=== PATIENT | female | born 1985 | race Caucasian/White ===

== ENCOUNTER 2016-09-29 15:49 | Emergency (ER) | payer MEDICAID ==
[~2016-09-29] VITALS: Ht 177.8 cm; Wt 91.6 kg
[~2016-09-29 15:49] MED LIST: ACHD5005 PO; ALBU0.632 IH; ALBU8.5H4 IH; IBP600T1 PO; LEVE100015 PO; LEVE500T6 PO; METR500T21 PO; MULT-974 PO; ONDA8TAB13 PO; RT-FLOV110 INH; SULF-222 PO
[2016-09-29] MEDS ORDERED: NS IV 1000 ML 1,000 ML IV ONE (16:07)
[2016-09-29] MEDS ORDERED: TOPI100T11 PO (16:12)
--- NOTE | 2016-09-29 16:18 | ED Head Injury ---
General Chief Complaint: Head/Cervical Problems Stated Complaint: FELL HIT HEAD ON BATHTUB Nursing Triage Note: ARRIVED VIA AMB TO ROOM 07. STATES SHE THINKS SHE WAS ON THE FLOOR FROM 2300 LAST NOC UNTIL 1330 TODAY. STATES SHE HIT HER HEAD. DENIES NECK PAIN. STATES HER KEPPRA DOSE WAS RECENTLY DECREASED. Source: patient Exam Limitations: no limitations History of Present Illness Time seen by provider: 16:03 Initial Comments Here with report of apparently falling in the bathtub sometime last night and then waking up today. She reports hitting the top of her head. She has had recent adjustments in her seizure medicine to a lower dose. She is unsure she had a seizure. Does report feeling very groggy. She is apparently found in the bathtub and was incontinent of stool. Denies other injury or concerns. She does have history of cancer but is not currently on chemotherapy or radiation. Occurred: this morning Severity: moderate Location: occipital Method of Injury: unknown Loss of Consciousness: prolonged (minutes) Associated Systoms: No Chest Pain, No Fever/Chills, No Nausea/Vomiting, Seizure , No Shortness of Air, Weakness Allergies and Home Medications Allergies Coded Allergies: cefaclor (Verified Allergy, Unknown, 12/19/13) latex (Verified Allergy, Unknown, 12/19/13) peanut (Verified Allergy, Unknown, 12/19/13) venom-honey bee (Verified Allergy, Unknown, 12/19/13) Home Medications Levetiracetam 1,000 Mg Tablet, 2 EACH PO BID, #120 Ref 0 Prescribed by: MARLEN HARRY on 12/19/14 1549 Topiramate 100 Mg Tablet, 100 MG PO BID, (Reported) Constitutional: see HPI, No chills, No fever Eyes: No Symptoms Reported Ears, Nose, Mouth, Throat: no symptoms reported Respiratory: no symptoms reported Cardiovascular: see HPI, syncope Gastrointestinal: No abdominal pain, No nausea, No vomiting Genitourinary: No dysuria, No pain Musculoskeletal: no symptoms reported Skin: see HPI, other (Abrasion to the top of her head that is small.) Psychiatric/Neurological: See HPI, Other (question of a seizure) Endocrine: No Symptoms Reported All Other Systems Reviewed Negative Unless Noted: Yes Past Xtboqmw-Qzyldc-Dmobyo Hx Patient Social History Alcohol Use: Denies Use Recreational Drug Use: No Smoking Status: Never a Smoker Recent Foreign Travel: No Contact w/Someone Who Travel: No Recent Infectious Disease Expo: No Recent Hopitalizations: No Immunizations Up To Date Tetanus Booster (TDap): More than 5yrs Date of Pneumonia Vaccine: Jun 14, 2011 Surgeries HX Surgeries: Yes (resection of benign breast masses, CERVIX, Dx Lap for adhesions) Surgeries: Abdominal, Appendectomy, Bowel Surgery, Breast, Orthopedic Respiratory Hx Respiratory Disorders: Yes (vocal cord dysfunction) Respiratory Disorders: Asthma Cardiovascular Hx Cardiac Disorders: No Neurological Hx 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) Neurological Disorders: Seizure Disorder Reproductive System Hx Reproductive Disorders: Yes (chronic PID, chronic pelvic pain) Sexually Transmitted Disease: No Female Reproductive Disorders: Ovarian Cyst Genitourinary Hx Genitourinary Disorders: No Gastrointestinal Hx Gastrointestinal Disorders: No Musculoskeletal Hx Musculoskeletal Disorders: No Endocrine Hx Endocrine Disorders: No HEENT HX ENT Disorders: Yes (vocal cord disease) Cancer Hx Cancer: Yes Cancer: Breast, Cervical, Colon Psychosocial Hx Psychiatric Problems: No Blood Transfusions Hx Blood Disorders: No Reviewed Nursing Assessment Reviewed/Agree w Nursing PMH: Yes Family Medical History Significant Family History: No Pertinent Family Hx Family Medial History: Patient reports no known family medical history. Physical Exam Vital Signs Vital Sign - Last 12Hours 09/29/16 16:07 Temp 97.3 Pulse 62 Resp 16 B/P (MAP) 120/90 Capillary Refill : Less Than 3 Seconds General Appearance: WD/WN, no apparent distress HEENT: PERRL/EOMI, normal ENT inspection Neck: non-tender, full range of motion, supple Cardiovascular: regular rate, rhythm, no murmur Respiratory: lungs clear, normal breath sounds Gastrointestinal: non tender, soft Back: normal inspection, no CVA tenderness, no vertebral tenderness Extremities: non-tender, normal inspection Psychiatric: alert, oriented x 3 Crainal Nerves: normal hearing, normal speech, PERRL Coordination/Gait: normal gait Motor/Sensory: no motor deficit, no sensory deficit Skin: normal color, warm/dry Erick Coma Score Best Eye Response: (4) Open Spontaneously Best Verbal Response: (5) Oriented Best Motor Response: (6) Obeys Commands Progress/Results/Core Measures Results/Orders Lab Results Laboratory Tests Test 09/29/16 16:20 Range/Units White Blood Count 5.3 4.3-11.0 10^3/uL Red Blood Count 4.52 4.35-5.85 10^6/uL Hemoglobin 14.0 11.5-16.0 G/DL Hematocrit 40 35-52 % Mean Corpuscular Volume 89 80-99 FL Mean Corpuscular Hemoglobin 31 25-34 PG Mean Corpuscular Hemoglobin Concent 35 32-36 G/DL Red Cell Distribution Width 12.1 10.0-14.5 % Platelet Count 181 130-400 10^3/uL Mean Platelet Volume 9.3 7.4-10.4 FL Neutrophils (%) (Auto) 60 42-75 % Lymphocytes (%) (Auto) 28 12-44 % Monocytes (%) (Auto) 10 0-12 % Eosinophils (%) (Auto) 2 0-10 % Basophils (%) (Auto) 0 0-10 % Neutrophils # (Auto) 3.1 1.8-7.8 X 10^3 Lymphocytes # (Auto) 1.5 1.0-4.0 X 10^3 Monocytes # (Auto) 0.5 0.0-1.0 X 10^3 Eosinophils # (Auto) 0.1 0.0-0.3 10^3/uL Basophils # (Auto) 0.0 0.0-0.1 10^3/uL Sodium Level 139 135-145 MMOL/L Potassium Level 3.7 3.6-5.0 MMOL/L Chloride Level 107 98-107 MMOL/L Carbon Dioxide Level 26 21-32 MMOL/L Anion Gap 6 5-14 MMOL/L Blood Urea Nitrogen 12 7-18 MG/DL Creatinine 1.03 0.60-1.30 MG/DL Estimat Glomerular Filtration Rate > 60 BUN/Creatinine Ratio 12 Glucose Level 86 70-105 MG/DL Calcium Level 8.7 8.5-10.1 MG/DL Magnesium Level 2.2 1.8-2.4 MG/DL Total Bilirubin 0.6 0.1-1.0 MG/DL Aspartate Amino Transf (AST/SGOT) 19 5-34 U/L Alanine Aminotransferase (ALT/SGPT) 34 0-55 U/L Alkaline Phosphatase 48 40-136 U/L Total Creatine Kinase 186 H 29-168 U/L Total Protein 6.8 6.4-8.2 G/DL Albumin 4.2 3.2-4.5 G/DL My Orders Orders - MARLEN HARRY MD Cbc With Automated Diff (09/29/16 16:07) Comprehensive Metabolic Panel (09/29/16 16:07) Creatine Kinase (09/29/16 16:07) Magnesium (09/29/16 16:07) Saline Lock/Iv-Start (09/29/16 16:07) Ns Iv 1000 Ml (Sodium Chloride 0.9%) (09/29/16 16:07) Ct Head Wo (09/29/16 16:07) Medications Given in ED Current Medications Medications Dose Ordered Sig/Sourav Route Start Time Stop Time Status Last Admin Dose Admin Sodium Chloride 1,000 ml @ 0 mls/hr Q0M ONCE IV 09/29/16 16:07 09/29/16 16:10 DC 09/29/16 16:21 1,000 MLS/HR Vital Signs/I&O Vital Sign - Last 12Hours 09/29/16 16:07 Temp 97.3 Pulse 62 Resp 16 B/P (MAP) 120/90 Blood Pressure Mean: 100 Progress Note : Progress Note Seen and evaluated. IV, labs, normal saline [address] head ordered. I did have patient take one dose of her home Keppra as she missed her morning dose. Patient has had med adjustment and this may be seizure related. Due to prolonged report of time in the bathtub (dry), we will check total CK. 1730: No acute findings. Discharged home with return precautions. Patient verbalize understanding instructions and agreement with plan. She will call her neurologist related to medication adjustment in the morning. Diagnostic Imaging Diagonstic Imaging: CT Plain Films/CT/US/NM/MRI: head Comments NAME: [facility] REC#: [id number] PT STATUS: REG ER : 1985 PHYSICIAN: MARLEN HARRY MD ADMIT DATE: 09/29/16/ER Signed Date of Exam: 09/29/16 CT HEAD WO PROCEDURE: CT head without contrast. TECHNIQUE: Multiple contiguous axial images were obtained through the brain without the use of intravenous contrast. INDICATION: Seizures. Fall. Correlation with the 12/19/2013 exam performed. FINDINGS: There is no intracranial hemorrhage, edema or mass effect. The brain parenchyma appears unremarkable. No hydrocephalus. The visualized portions of the orbits and paranasal sinuses appear unremarkable. IMPRESSION: Unremarkable study. Dictated by: Dictated on workstation # [id number] Dict: 09/29/161636 Trans: 09/29/161638 Interpreted by: LON CARTY MD Electronically signed by: LON CARTY MD 09/29/161638 Departure Impression Impression: Primary Impression: Head injury Qualified Codes: S09.90XA - Unspecified injury of head, initial encounter Additional Impression: Seizure Disposition: 01 HOME, SELF-CARE Condition: Improved Departure-Patient Inst. Decision time for Depature: 17:34 Referrals: TRICIA SAEED MD (PCP/Family) Primary Care Physician Patient Instructions: Minor Head Injury (DC), Seizures, Adult (DC) Add. Discharge Instructions: All discharge instructions reviewed with patient and/or family. Voiced understanding. Continue medications as directed. Call your neurologist in the morning for further medication adjustments. Return for worse pain, fever, vomiting, weakness, breathing problems or other concerns as needed. Drink plenty of fluids. MARLEN HARRY MD Sep 29, 2016 16:18
[2016-09-29 16:28] LABS: BASOPHILS % (AUTO) 0 % (0-10); EOSINOPHILS # (AUTO) 0.1 10^3/uL (0.0-0.3); EOSINOPHILS % (AUTO) 2 % (0-10); LYMPHOCYTES # (AUTO) 1.5 X 10^3 (1.0-4.0); LYMPHOCYTES % (AUTO) 28 % (12-44); MEAN CORPUSCULAR HEMOGLOBIN 31 PG (25-34); MEAN CORPUSCULAR HGB CONC 35 G/DL (32-36); MEAN CORPUSCULAR VOLUME 89 FL (80-99); MEAN PLATELET VOLUME 9.3 FL (7.4-10.4); MONOCYTES # (AUTO) 0.5 X 10^3 (0.0-1.0); MONOCYTES % (AUTO) 10 % (0-12); NEUTROPHILS # (AUTO) 3.1 X 10^3 (1.8-7.8); NEUTROPHILS % (AUTO) 60 % (42-75); PLATELET COUNT 181 10^3/uL (130-400); RED BLOOD COUNT 4.52 10^6/uL (4.35-5.85); RED CELL DISTRIBUTION WIDTH 12.1 % (10.0-14.5); WHITE BLOOD COUNT 5.3 10^3/uL (4.3-11.0)
--- NOTE | 2016-09-29 16:41 | Diagnostic Imaging Report ---
PROCEDURE: CT head without contrast. TECHNIQUE: Multiple contiguous axial images were obtained through the brain without the use of intravenous contrast. INDICATION: Seizures. Fall. Correlation with the 12/19/2013 exam performed. FINDINGS: There is no intracranial hemorrhage, edema or mass effect. The brain parenchyma appears unremarkable. No hydrocephalus. The visualized portions of the orbits and paranasal sinuses appear unremarkable. IMPRESSION: Unremarkable study. Dictated by: Dictated on workstation # [id number]
[2016-09-29 17:09] LABS: ALANINE AMINOTRANSFERASE 34 U/L (0-55); ALBUMIN 4.2 G/DL (3.2-4.5); ANION GAP 6 MMOL/L (5-14); ASPARTATE AMINO TRANSFERASE 19 U/L (5-34); BILIRUBIN,TOTAL 0.6 MG/DL (0.1-1.0); BLOOD UREA NITROGEN 12 MG/DL (7-18); BUN/CREATININE RATIO 12; CALCIUM 8.7 MG/DL (8.5-10.1); CARBON DIOXIDE 26 MMOL/L (21-32); CHLORIDE 107 MMOL/L (98-107); CREATINE KINASE 186 U/L (29-168); CREATININE SERUM 1.03 MG/DL (0.60-1.30); GFR ESTIMATED > 60; GLUCOSE 86 MG/DL (70-105); MAGNESIUM 2.2 MG/DL (1.8-2.4); POTASSIUM 3.7 MMOL/L (3.6-5.0); SODIUM 139 MMOL/L (135-145); TOTAL PROTEIN 6.8 G/DL (6.4-8.2)
[2016-09-29] MEDS ORDERED: TETANUS,DIPTH,PERTUSS P/F (BOOSTRIX) 0.5 ML VIAL IM STA (17:48)
[2016-09-29 17:55] VITALS: BP 101/67
== END 2016-09-29 17:55 | disposition home or self-care (01) ==
LOC: EDUNIT# 15:49 → ER 15:51
DX: S09.90XA Unspecified injury of head, initial encounter (principal); G40.909 Epilepsy, unspecified, not intractable, without status epilepticus; Z79.899 Other long term (current) drug therapy; Z85.3 Personal history of malignant neoplasm of breast; Z85.038 Personal history of other malignant neoplasm of large intestine; Z85.41 Personal history of malignant neoplasm of cervix uteri; W18.2XXA Fall in (into) shower or empty bathtub, initial encounter; Y92.012 Bathroom of single-family (private) house as the place of occurrence of the external cause; Y99.8 Other external cause status
CPT/HCPCS: 36415; 70450; 80053; 82550; 83735; 85025; 90471; 90715; 96360

== ENCOUNTER 2016-09-30 21:31 | Emergency (ER) | payer MEDICAID ==
[~2016-09-30] VITALS: Ht 177.8 cm; Wt 91.7 kg
[~2016-09-30 21:31] MED LIST changes: +TOPI100T11 PO
--- NOTE | 2016-09-30 21:45 | ED Neurological Problem ---
General Chief Complaint: Unresponsive Stated Complaint: UNRESPONSIVE Source: EMS, RN notes reviewed, old records Exam Limitations: clinical condition (unresponsive) History of Present Illness Time seen by provider: 21:32 Initial Comments Patient, I believe, was @ [employer] when she developed a bad headache and started feeling weird. She called someone and that is the last thing she remembers until waking up here. Was here yesterday c/ a somewhat similar story. Has known seizure hx and recently had her Keppra dose reduced from 1500 mg BID to 500 mg BID by her Neurologist in [place] and that is when all these problems began. Couldn't tell me why her dose was reduced. Timing/Duration: increasing, other (just [facility]) Associated Symptoms: loss of consciousness Allergies and Home Medications Allergies Coded Allergies: cefaclor (Verified Allergy, Unknown, 12/19/13) latex (Verified Allergy, Unknown, 12/19/13) peanut (Verified Allergy, Unknown, 12/19/13) venom-honey bee (Verified Allergy, Unknown, 12/19/13) Home Medications Levetiracetam 1,000 Mg Tablet, 2 EACH PO BID, #120 Ref 0 Prescribed by: MARLEN HARRY on 12/19/14 1549 Topiramate 100 Mg Tablet, 100 MG PO BID, (Reported) Constitutional: see HPI (initially unable to obtain secondary to being unresponsive.) : No Psychiatric/Neurological: See HPI, Cognitive Dysfunction, Headache, [place] Seizures (?) All Other Systems Reviewed Negative Unless Noted: Yes (Negative excepted noted.) Past Nvsoxpk-Upeuvu-Vkynch Hx Patient Social History Recent Hopitalizations: No Immunizations Up To Date Tetanus Booster (TDap): More than 5yrs Date of Pneumonia Vaccine: Jun 14, 2011 Surgeries HX Surgeries: Yes (resection of benign breast masses, CERVIX, Dx Lap for adhesions) Surgeries: Abdominal, Appendectomy, Bowel Surgery, Breast, Orthopedic Respiratory Hx Respiratory Disorders: Yes (vocal cord dysfunction) Respiratory Disorders: Asthma Cardiovascular Hx Cardiac Disorders: No Neurological Hx 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) Neurological Disorders: Seizure Disorder Reproductive System Hx Reproductive Disorders: Yes (chronic PID, chronic pelvic pain) Sexually Transmitted Disease: No Female Reproductive Disorders: Ovarian Cyst Genitourinary Hx Genitourinary Disorders: No Gastrointestinal Hx Gastrointestinal Disorders: No Musculoskeletal Hx Musculoskeletal Disorders: No Endocrine Hx Endocrine Disorders: No HEENT HX ENT Disorders: Yes (vocal cord disease) Cancer Hx Cancer: Yes Cancer: Breast, Cervical, Colon Psychosocial Hx Psychiatric Problems: No Blood Transfusions Hx Blood Disorders: No Family Medical History Significant Family History: No Pertinent Family Hx Family Medial History: Patient reports no known family medical history. Physical Exam Vital Signs Vital Sign - Last 12Hours 09/30/16 21:40 Temp 98.8 Pulse 71 Resp 21 B/P (MAP) 126/79 Pulse Ox 99 O2 Delivery Room Air Capillary Refill : General Appearance: WD/WN, other (initially unresponsive and appeared to be possibly seizing when evaluating her eyes) HEENT: PERRL/EOMI (post seizure), normal ENT inspection (post event), TMs normal (post event), pharynx normal, other (initially had a twitching right upward lateral gaze bilaterally) Neck: supple Respiratory: no respiratory distress Cardiovascular: regular rate, rhythm Extremities: normal inspection Neurologic/Psychiatric: no motor/sensory deficits (post event), alert (post event), oriented x 3 (post event), other (initially unresponsive) Crainal Nerves: normal hearing (post event), normal speech (post event), PERRL (post event), abnormal eye position (see above) Coordination/Gait: normal finger to nose, normal gait Motor/Sensory: no motor deficit (post event), no sensory deficit (post event), no pronator drift (post event) Skin: warm/dry Progress/Results/Core Measures Results/Orders Lab Results Laboratory Tests Test 09/30/16 21:39 09/30/16 22:10 09/30/16 22:27 Range/Units Urine Color YELLOW Urine Clarity CLEAR Urine pH 7 5-9 Urine Specific [place] 1.015 L 1.016-1.022 Urine Protein NEGATIVE NEGATIVE Urine Glucose (UA) NEGATIVE NEGATIVE Urine Ketones NEGATIVE NEGATIVE Urine Nitrite NEGATIVE NEGATIVE Urine Bilirubin NEGATIVE NEGATIVE Urine Urobilinogen NORMAL NORMAL MG/DL Urine Leukocyte Esterase NEGATIVE NEGATIVE Urine RBC (Auto) NEGATIVE NEGATIVE Urine RBC NONE /HPF Urine WBC RARE /HPF Urine Crystals PRESENT H /LPF Urine Amorphous Sediment MOD ROSANNE PHOSPHATE H /LPF Urine Bacteria FEW H /HPF Urine Casts NONE /LPF Urine Mucus NEGATIVE /LPF Urine Culture Indicated NO Urine Test NEGATIVE NEGATIVE Urine Opiates Screen NEGATIVE NEGATIVE Urine Oxycodone Screen NEGATIVE NEGATIVE Urine Methadone Screen NEGATIVE NEGATIVE Urine Propoxyphene Screen NEGATIVE NEGATIVE Urine Barbiturates Screen NEGATIVE NEGATIVE Ur Tricyclic Antidepressants Screen NEGATIVE NEGATIVE Urine Phencyclidine Screen NEGATIVE NEGATIVE Urine Amphetamines Screen NEGATIVE NEGATIVE Urine Methamphetamines Screen NEGATIVE NEGATIVE Urine Benzodiazepines Screen NEGATIVE NEGATIVE Urine Cocaine Screen NEGATIVE NEGATIVE Urine Cannabinoids Screen NEGATIVE NEGATIVE White Blood Count 8.2 4.3-11.0 10^3/uL Red Blood Count 4.78 4.35-5.85 10^6/uL Hemoglobin 14.9 11.5-16.0 G/DL Hematocrit 43 35-52 % Mean Corpuscular Volume 91 80-99 FL Mean Corpuscular Hemoglobin 31 25-34 PG Mean Corpuscular Hemoglobin Concent 34 32-36 G/DL Red Cell Distribution Width 12.5 10.0-14.5 % Platelet Count 212 130-400 10^3/uL Mean Platelet Volume 11.1 H 7.4-10.4 FL Neutrophils (%) (Auto) 62 42-75 % Lymphocytes (%) (Auto) 27 12-44 % Monocytes (%) (Auto) 9 0-12 % Eosinophils (%) (Auto) 2 0-10 % Basophils (%) (Auto) 0 0-10 % Neutrophils # (Auto) 5.1 1.8-7.8 X 10^3 Lymphocytes # (Auto) 2.2 1.0-4.0 X 10^3 Monocytes # (Auto) 0.7 0.0-1.0 X 10^3 Eosinophils # (Auto) 0.2 0.0-0.3 10^3/uL Basophils # (Auto) 0.0 0.0-0.1 10^3/uL Sodium Level 143 135-145 MMOL/L Potassium Level 3.8 3.6-5.0 MMOL/L Chloride Level 111 H 98-107 MMOL/L Carbon Dioxide Level 20 L 21-32 MMOL/L Anion Gap 12 5-14 MMOL/L Blood Urea Nitrogen 13 7-18 MG/DL Creatinine 1.04 0.60-1.30 MG/DL Estimat Glomerular Filtration Rate > 60 BUN/Creatinine Ratio 13 Glucose Level 67 L 70-105 MG/DL Calcium Level 9.1 8.5-10.1 MG/DL Magnesium Level 2.2 1.8-2.4 MG/DL Total Bilirubin 0.4 0.1-1.0 MG/DL Aspartate Amino Transf (AST/SGOT) 17 5-34 U/L Alanine Aminotransferase (ALT/SGPT) 33 0-55 U/L Alkaline Phosphatase 53 40-136 U/L Total Creatine Kinase 153 29-168 U/L Troponin I < 0.30 <0.30 NG/ML Total Protein 7.3 6.4-8.2 G/DL Albumin 4.3 3.2-4.5 G/DL Salicylates Level < 5.0 L 5.0-20.0 MG/DL Acetaminophen Level < 10 L 10-30 UG/ML Serum Alcohol < 10 <10 MG/DL My Orders Orders - WISAM RAHMAN DO Saline Lock/Iv-Start (09/30/16 21:40) Acetaminophen (09/30/16 21:40) Alcohol (09/30/16 21:40) Cbc With Automated Diff (09/30/16 21:40) Comprehensive Metabolic Panel (09/30/16 21:40) Drug Screen Stat (Urine) (09/30/16 21:40) Hcg,Qualitative Urine (09/30/16 21:40) Magnesium (09/30/16 21:40) Salicylate (09/30/16 21:40) Ua Culture If Indicated (09/30/16 21:40) Creatine Kinase (09/30/16 21:46) Prolactin (09/30/16 21:46) Ct Head Wo (09/30/16 21:46) Ekg Tracing (09/30/16 21:47) Troponin I (09/30/16 21:47) Lorazepam Injection (Ativan Injection) (09/30/16 22:00) Levetiracetam Injection (Keppra Injectio (09/30/16 22:55) Ns (Ivpb) (Sodium Chloride 0.9% Ivpb Bag (09/30/16 22:55) Levetiracetam Injection (Keppra Injectio (09/30/16 22:56) Burr Cath (10/01/16 02:46) Vital Signs/I&O Vital Sign - Last 12Hours 09/30/16 09/30/16 21:40 23:30 Temp 98.8 98.8 Pulse 71 53 Resp 21 22 B/P (MAP) 126/79 Pulse Ox 99 99 O2 Delivery Room Air Intake and Output 10/01/16 00:00 Intake Total 110 ml Balance 110 ml Progress Note : Progress Note Reportedly did call her Neurologist today, 09/30, and left a message regarding yesterday's events, but hasn't heard back from him yet. ECG Initial ECG Rhythm: Normal Sinus Initial ECG Intervals: Normal Initial ECG Impression: Normal Initial ECG Comparisson: No Previous ECG Available Diagnostic Imaging Diagonstic Imaging: CT Plain Films/CT/US/NM/MRI: head (unremarkable per radiologist) Departure Impression Impression: Primary Impression: Seizure Disposition: HOME, SELF-CARE Condition: Improved Departure-Patient Inst. Decision time for Depature: 23:10 Referrals: TRICIA SAEED MD (PCP/Family) Primary Care Physician Patient Instructions: Seizures, Adult (DC) Add. Discharge Instructions: All discharge instructions reviewed with patient and/or family. Voiced understanding. RECOMMEND INCREASING YOUR KEPPRA DOSE TO @ LEAST A 1000 mg TWICE DAILY BEGINNING IN AM, 10/01. HOPEFULLY YOUR NEUROLOGIST WILL FOLLOW UP WITH YOU TOMORROW WELL. DO NOT DRIVE, OR SWIM/BATH ALONE IN CASE YOU HAVE ANOTHER SEIZURE. WISAM RAHMAN DO Sep 30, 2016 21:45
[2016-09-30 21:54] LABS: BILIRUBIN,URINE NEGATIVE (NEGATIVE); KETONES,URINE NEGATIVE (NEGATIVE); LEUKOCYTE ESTERASE ,URINE NEGATIVE (NEGATIVE); NITRITE,URINE NEGATIVE (NEGATIVE); PH,URINE 7 (5-9); PROTEIN,URINE NEGATIVE (NEGATIVE); UROBILINOGEN,URINE NORMAL (NORMAL)
[2016-09-30] MEDS ORDERED: LORazepam INJ 2 MG/ML (ATIVAN) VIAL IVP ONE (22:00)
[2016-09-30 22:05] LABS: WBC,URINE RARE /HPF
[2016-09-30 22:17] LABS: BASOPHILS % (AUTO) 0 % (0-10); EOSINOPHILS # (AUTO) 0.2 10^3/uL (0.0-0.3); EOSINOPHILS % (AUTO) 2 % (0-10); LYMPHOCYTES # (AUTO) 2.2 X 10^3 (1.0-4.0); LYMPHOCYTES % (AUTO) 27 % (12-44); MEAN CORPUSCULAR HEMOGLOBIN 31 PG (25-34); MEAN CORPUSCULAR HGB CONC 34 G/DL (32-36); MEAN CORPUSCULAR VOLUME 91 FL (80-99); MEAN PLATELET VOLUME 11.1 FL (7.4-10.4); MONOCYTES # (AUTO) 0.7 X 10^3 (0.0-1.0); MONOCYTES % (AUTO) 9 % (0-12); NEUTROPHILS # (AUTO) 5.1 X 10^3 (1.8-7.8); NEUTROPHILS % (AUTO) 62 % (42-75); PLATELET COUNT 212 10^3/uL (130-400); RED BLOOD COUNT 4.78 10^6/uL (4.35-5.85); RED CELL DISTRIBUTION WIDTH 12.5 % (10.0-14.5); WHITE BLOOD COUNT 8.2 10^3/uL (4.3-11.0)
[2016-09-30 22:41] LABS: ALANINE AMINOTRANSFERASE 33 U/L (0-55); ALBUMIN 4.3 G/DL (3.2-4.5); ANION GAP 12 MMOL/L (5-14); ASPARTATE AMINO TRANSFERASE 17 U/L (5-34); BILIRUBIN,TOTAL 0.4 MG/DL (0.1-1.0); BLOOD UREA NITROGEN 13 MG/DL (7-18); BUN/CREATININE RATIO 13; CALCIUM 9.1 MG/DL (8.5-10.1); CARBON DIOXIDE 20 MMOL/L (21-32); CHLORIDE 111 MMOL/L (98-107); CREATINE KINASE 153 U/L (29-168); CREATININE SERUM 1.04 MG/DL (0.60-1.30); GFR ESTIMATED > 60; GLUCOSE 67 MG/DL (70-105); MAGNESIUM 2.2 MG/DL (1.8-2.4); POTASSIUM 3.8 MMOL/L (3.6-5.0); SALICYLATE < 5.0 MG/DL (5.0-20.0); SODIUM 143 MMOL/L (135-145); TOTAL PROTEIN 7.3 G/DL (6.4-8.2)
[2016-09-30 22:42] LABS: ACETAMINOPHEN < 10 UG/ML (10-30); ALCOHOL < 10 MG/DL (<10)
[2016-09-30 22:47] LABS: TROPONIN I < 0.30 NG/ML (<0.30)
[2016-09-30] MEDS ORDERED: NS (IVPB) 100 ML ONE (22:55)
[2016-09-30] MEDS ORDERED: LEVETIRACETAM INJECTION 1,000 MG in NS (IVPB) 100 ML IV STA (22:55)
[2016-09-30] MEDS ORDERED: LEVETIRACETAM 500 MG/5 ML (KEPPRA) VIAL IV ONE (22:56)
[2016-09-30 23:30] VITALS: BP 104/71
--- NOTE | 2016-10-01 07:10 | Diagnostic Imaging Report ---
PROCEDURE: CT head without contrast. TECHNIQUE: Multiple contiguous axial images were obtained through the brain without the use of intravenous contrast. INDICATION: Unresponsive . FINDINGS: There is no intracranial hemorrhage, edema or mass effect. The brain parenchyma appears unremarkable. No hydrocephalus. The visualized portions of the orbits and paranasal sinuses appear unremarkable. IMPRESSION: Unremarkable study. Dictated by: Dictated on workstation # [id number]
[2016-10-01] MEDS ORDERED: TPR25T PO (23:54)
== END 2016-09-30 23:30 | disposition home or self-care (01) ==
LOC: EDUNIT# 21:31 → ER 21:32
DX: G40.909 Epilepsy, unspecified, not intractable, without status epilepticus (principal); Z79.899 Other long term (current) drug therapy
CPT/HCPCS: 36415; 51702; 70450; 80053; 80306; 80320; 80329; 81000; 82550; 83735; 84146; 84484; 84703; 85025; 93005; 96374

== ENCOUNTER 2016-10-01 21:36 | Emergency (ER) | payer MEDICAID ==
[~2016-10-01] VITALS: Ht 177.8 cm; Wt 91.7 kg
--- NOTE | 2016-10-01 22:15 | ED Neurological Problem ---
General Chief Complaint: Neurological Problems Stated Complaint: SEIZURE Nursing Triage Note: Came in after having a seizure. Seizure occured at 1400. Patient has been here past two days for same reason. Nursing Sepsis Screen: No Definite Risk Source: patient, RN notes reviewed, old records Exam Limitations: no limitations History of Present Illness Time seen by provider: 22:14 Initial Comments As above and below. Thinks she probably had a seizure around 14:00. Awoke on floor around 18:00 and had been incontinent of urine. Awoke too late to follow up c/ her neurologist in [place]. Today's episode was once again preceded by a bad headache. Saw her last PM for similar complaints. Had been seen the day before that c/ similar complaints as well. Reportedly left a message c/ her neurologist yesterday but hasn't heard back yet. Reportedly fine when she was on 1500 mg of Keppra BID for quite some time and her neurologist thought she could be tapered off her Keppra when all these problems started. Timing/Duration: 1 week Associated Symptoms: confusion, fatigue, loss of consciousness, seizures, sleepy Allergies and Home Medications Allergies Coded Allergies: cefaclor (Verified Allergy, Unknown, 12/19/13) latex (Verified Allergy, Unknown, 12/19/13) peanut (Verified Allergy, Unknown, 12/19/13) venom-honey bee (Verified Allergy, Unknown, 12/19/13) Home Medications Levetiracetam 1,000 Mg Tablet, 2 EACH PO BID, #120 Ref 0 Prescribed by: MARLEN HARRY on 12/19/14 1549 Topiramate 100 Mg Tablet, 100 MG PO BID, (Reported) Topiramate 25 Mg Tablet, 25 MG PO BID for 7 Days, Ref 0 Prescribed by: WISAM RAHMAN on 10/01/16 5072 Constitutional: see HPI, malaise : No Psychiatric/Neurological: See HPI, Headache, [place] Seizures (???) All Other Systems Reviewed Negative Unless Noted: Yes (Negative excepted noted.) Past Proelon-Shniam-Jryzww Hx Patient Social History Alcohol Use: Denies Use Recreational Drug Use: No Smoking Status: Never a Smoker 2nd Hand Smoke Exposure: No Recent Foreign Travel: No Contact w/Someone Who Travel: No Recent Infectious Disease Expo: No Recent Hopitalizations: No Immunizations Up To Date Tetanus Booster (TDap): More than 5yrs Date of Pneumonia Vaccine: Jun 14, 2011 Surgeries HX Surgeries: Yes (resection of benign breast masses, CERVIX, Dx Lap for adhesions) Surgeries: Abdominal, Appendectomy, Bowel Surgery, Breast, Orthopedic Respiratory Hx Respiratory Disorders: Yes (vocal cord dysfunction) Respiratory Disorders: Asthma Cardiovascular Hx Cardiac Disorders: No Neurological Hx 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) Neurological Disorders: Seizure Disorder Reproductive System Hx Reproductive Disorders: Yes (chronic PID, chronic pelvic pain) Sexually Transmitted Disease: No Female Reproductive Disorders: Ovarian Cyst Genitourinary Hx Genitourinary Disorders: No Gastrointestinal Hx Gastrointestinal Disorders: No Musculoskeletal Hx Musculoskeletal Disorders: No Endocrine Hx Endocrine Disorders: No HEENT HX ENT Disorders: Yes (vocal cord disease) Cancer Hx Cancer: Yes Cancer: Breast, Cervical, Colon Psychosocial Hx Psychiatric Problems: No Blood Transfusions Hx Blood Disorders: No Family Medical History Significant Family History: No Pertinent Family Hx Family Medial History: Patient reports no known family medical history. Physical Exam Vital Signs Vital Sign - Last 12Hours 10/01/16 21:44 Pulse 64 Resp 18 B/P (MAP) 105/70 Pulse Ox 100 O2 Delivery Room Air Capillary Refill : Less Than 3 Seconds General Appearance: WD/WN, no apparent distress, obese HEENT: PERRL/EOMI, normal ENT inspection Neck: normal inspection Respiratory: no respiratory distress Cardiovascular: regular rate, rhythm Neurologic/Psychiatric: no motor/sensory deficits, alert, oriented x 3 Crainal Nerves: normal hearing, normal speech, PERRL Coordination/Gait: normal gait Motor/Sensory: no motor deficit, no sensory deficit Skin: warm/dry Progress/Results/Core Measures Results/Orders My Orders Orders - WISAM RAHMAN DO Ketorolac Injection (Toradol Injection) (10/01/16 23:45) Topiramate Tablet (Topamax Tablet) (10/01/16 23:45) Medications Given in ED Current Medications Medications Dose Ordered Sig/Sourav Route Start Time Stop Time Status Last Admin Dose Admin Ketorolac Tromethamine 60 mg ONCE ONCE IM 10/01/16 23:45 10/01/16 23:46 DC 10/01/16 23:47 60 MG Topiramate 125 mg ONCE ONCE PO 10/01/16 23:45 10/01/16 23:46 DC 10/02/16 00:04 125 MG Vital Signs/I&O Vital Sign - Last 12Hours 10/01/16 10/02/16 21:44 00:10 Pulse 64 64 Resp 18 18 B/P (MAP) 105/70 Pulse Ox 100 100 O2 Delivery Room Air Blood Pressure Mean: 82 Progress Note : Progress Note Spoke c/ the neurologist route contractor for her neurologist @ [facility] in [place]. He wasn't familiar c/ the patient but did have access to her records. Apparently their office did try to contact the patient this afternoon , 10/01. around 16:30 and got her answering machine. They apparently recommended continued tapering of her Keppra and increasing her Topamax to 125 mg BID x 1 week and then to 150 mg BID there after. The patient has already taken 1500 mg of Keppra this AM and 100 mg of Topamax. Recommendation tonight was to have the patient take 750 mg of Keppra tonight and then start 750 mg BID in the AM and stay on that and increase her Topamax to 125 mg beginning tonight and then 125mg BID for the next week and then 150 mg BID there after. Recommends following up c/ her neurologist on Tuesday, 10/04. Departure Impression Impression: Primary Impression: Migraine Additional Impression: Seizure Disposition: HOME, SELF-CARE Condition: Stable Departure-Patient Inst. Decision time for Depature: 23:51 Referrals: TRICIA SAEED MD (PCP/Family) Primary Care Physician Patient Instructions: Seizures, Adult (DC), Migraine Headache (DC) Add. Discharge Instructions: All discharge instructions reviewed with patient and/or family. Voiced understanding. take 750 mg OF KEPPRA TWICE DAILY AND 125 mg OF TOPAMAX TWICE DAILY. AFTER ONE WEEK, INCREASE YOUR TOPAMAX TO 150 mg TWICE DAILY. PATIENT WAS ALSO GIVEN A RX FOR KEPPRA 100 mg #60. CALL AND SCHEDULE A FOLLOW UP WITH YOUR NEUROLOGIST DEBORAH. Scripts Topiramate (Topamax) 25 Mg Tablet 25 MG PO BID for 7 Days, TAB 0 Refills Prov: WISAM RAHMAN DO 10/01/16 WISAM RAHMAN DO Oct 01, 2016 22:15
[2016-10-01] MEDS ORDERED: toPIRamate 25 MG (TOPAMAX) TAB PO ONE (23:45)
[2016-10-01] MEDS ORDERED: KETOROLAC 60 MG/2 ML VIAL IM ONE (23:45)
[2016-10-01] MEDS ORDERED: TPR25T PO (23:54)
[2016-10-02 00:10] VITALS: BP 105/70
== END 2016-10-02 00:09 | disposition home or self-care (01) ==
LOC: EDUNIT# 21:36 → ER 21:37
DX: G43.909 Migraine, unspecified, not intractable, without status migrainosus (principal); G40.909 Epilepsy, unspecified, not intractable, without status epilepticus; Z79.899 Other long term (current) drug therapy
CPT/HCPCS: 96372; 99285

== ENCOUNTER 2016-10-28 15:08 | Emergency (ER) | payer MEDICAID ==
[~2016-10-28] VITALS: Ht 177.8 cm; Wt 92.1 kg
[~2016-10-28 15:08] MED LIST changes: +TPR25T PO
[2016-10-28] MEDS ORDERED: TOPI200T25 PO (15:25)
--- NOTE | 2016-10-28 15:53 | Diagnostic Imaging Report ---
INDICATION: Hip injury after a fall. EXAMINATION: AP view of the pelvis was obtained. FINDINGS: No fracture or dislocation. IMPRESSION: Negative pelvis. Dictated by: Dictated on workstation # [id number]
--- NOTE | 2016-10-28 15:53 | Diagnostic Imaging Report ---
INDICATION: Right leg injury after a previous fall. EXAMINATION: AP and lateral views of the right femur, including the knee and hip joints. FINDINGS: No fracture or dislocation. IMPRESSION: Negative right femur. Dictated by: Dictated on workstation # [id number]
--- NOTE | 2016-10-28 15:54 | Diagnostic Imaging Report ---
INDICATION: Right hip pain. FINDINGS: Two views of the right hip show no fracture, dislocation, or other acute abnormalities. IMPRESSION: Negative right hip. Dictated by: Dictated on workstation # [id number]
--- NOTE | 2016-10-28 16:04 | ED Hip Pain/Injury ---
General Chief Complaint: Hip/Pelvic Problems Stated Complaint: POSSIBLE HIP FRACTURE Nursing Triage Note: pt states she came from physical therapy today because she was told to come here. she fell and hit her head on september 28 of this year due to a seizure she had. pt stated her doctor was tapering her of her seizure medications. she hasn't been able to walk "normal" since. History of Present Illness Time seen by provider: 15:15 Initial Comments Evaluation for right hip pain, patient reports she had a seizure approximately 1 month ago and since then has been having right hip pain. Her neurologist referred her to physical therapy. When she went for evaluation today her pain was significant and therapist was not comfortable with her doing therapy. Timing/Duration: intermittent Severity: mild Location: hip (R), other (right femur) Method of Injury: unknown, fell Modifying Factors: Improves With Immobilization, Improves With Rest Associated Symptoms: denies symptoms Allergies and Home Medications Allergies Coded Allergies: cefaclor (Verified Allergy, Unknown, 12/19/13) latex (Verified Allergy, Unknown, 12/19/13) peanut (Verified Allergy, Unknown, 12/19/13) strawberry (Verified Allergy, Unknown, 10/28/16) venom-honey bee (Verified Allergy, Unknown, 12/19/13) Home Medications Levetiracetam 1,000 Mg Tablet, 2 EACH PO BID, #120 Ref 0 Prescribed by: MARLEN HARRY on 12/19/14 1549 Topiramate 200 Mg Tablet, 200 MG PO, (Reported) Constitutional: no symptoms reported, see HPI EENTM: no symptoms reported, see HPI Respiratory: no symptoms reported, see HPI Cardiovascular: no symptoms reported, see HPI Gastrointestinal: no symptoms reported, see HPI Genitourinary: no symptoms reported, see HPI Musculoskeletal: see HPI, joint pain (right hip and thigh) Skin: no symptoms reported, see HPI Psychiatric/Neurological: No Symptoms Reported, See HPI All Other Systems Reviewed Negative Unless Noted: Yes Past Eqgixcn-Wjximl-Hkcfjx Hx Patient Social History Alcohol Use: Denies Use Recreational Drug Use: No Smoking Status: Never a Smoker 2nd Hand Smoke Exposure: No Recent Foreign Travel: No Contact w/Someone Who Travel: No Recent Infectious Disease Expo: No Recent Hopitalizations: Yes (september 29-2016-seizure activity) Immunizations Up To Date Tetanus Booster (TDap): More than 5yrs Date of Pneumonia Vaccine: Jun 14, 2011 Seasonal Allergies Seasonal Allergies: No Surgeries HX Surgeries: Yes (resection of benign breast masses, CERVIX, Dx Lap for adhesions) Surgeries: Abdominal, Appendectomy, Bowel Surgery, Breast, Orthopedic Respiratory Hx Respiratory Disorders: Yes (vocal cord dysfunction) Respiratory Disorders: Asthma Cardiovascular Hx Cardiac Disorders: No Neurological Hx 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) Neurological Disorders: Seizure Disorder Reproductive System Hx Reproductive Disorders: Yes (chronic PID, chronic pelvic pain) Sexually Transmitted Disease: No Female Reproductive Disorders: Ovarian Cyst Genitourinary Hx Genitourinary Disorders: No Gastrointestinal Hx Gastrointestinal Disorders: No Musculoskeletal Hx Musculoskeletal Disorders: No Endocrine Hx Endocrine Disorders: No HEENT HX ENT Disorders: Yes (vocal cord disease) Cancer Hx Cancer: Yes Cancer: Breast, Cervical, Colon Psychosocial Hx Psychiatric Problems: No Blood Transfusions Hx Blood Disorders: No Family Medical History Significant Family History: No Pertinent Family Hx Family Medial History: Patient reports no known family medical history. Physical Exam Vital Signs Vital Sign - Last 12Hours 10/28/16 15:16 Temp 98.3 Pulse 58 Resp 20 B/P (MAP) 122/70 Pulse Ox 96 O2 Delivery Room Air Capillary Refill : Less Than 3 Seconds General Appearance: No Apparent Distress, WD/WN HEENT: PERRL/EOMI, TMs Normal, Normal ENT Inspection, Pharynx Normal Neck: Full Range of Motion, Normal Inspection, Non Tender Cardiovascular: Regular Rate, Rhythm, No Edema Respiratory: Chest Non Tender, Lungs Clear, Normal Breath Sounds Back: Normal Inspection, No CVA Tenderness, No Vertebral Tenderness Extremity: Normal Capillary Refill, Normal Inspection, Normal Range of Motion, No Pedal Edema Neurologic/Psychiatric: Alert, Oriented x3, No Motor/Sensory Deficits, Normal Mood/Affect Skin: Normal Color, Warm/Dry Comments Limitation of motion right hip secondary to pain. Able to perform a straight leg raise with trace pain in the right mid-thigh. Neurovascular status intact right lower extremity symmetric with the left. Progress/Results/Core Measures Results/Orders My Orders Orders - VENKAT BHATIA Pelvis (10/28/16 15:27) Hip, Right, 2 Views (10/28/16 15:27) Femur, Right, 2 Views (10/28/16 15:35) Vital Signs/I&O Vital Sign - Last 12Hours 10/28/16 15:16 Temp 98.3 Pulse 58 Resp 20 B/P (MAP) 122/70 Pulse Ox 96 O2 Delivery Room Air Blood Pressure Mean: 87 Diagnostic Imaging Diagonstic Imaging: Xray Plain Films/CT/US/NM/MRI: femur Comments NAME: KT ALCARAZ [facility] REC#: [id number] PT STATUS: REG ER : 1985 PHYSICIAN: VENKAT BHATIA ADMIT DATE: 10/28/16/ER Draft Date of Exam:10/28/16 FEMUR, RIGHT, 2 VIEWS INDICATION: Right leg injury after a previous fall. EXAMINATION: AP and lateral views of the right femur, including the knee and hip joints. FINDINGS: No fracture or dislocation. IMPRESSION: Negative right femur. Dictated on workstation # [id number] Dict: 10/28/16 1552 Trans: 10/28/16 1553 [facility] [id number] Interpreted by: MARLEN DEMARCO Electronically signed by: Reviewed: Reviewed by Me Diagonstic Imaging: Xray Plain Films/CT/US/NM/MRI: hip Comments NAME: KT ALCARAZ [facility] REC#: [id number] PT STATUS: REG ER : 1985 PHYSICIAN: VENKAT BHATIA ADMIT DATE: 10/28/16/ER Draft Date of Exam:10/28/16 HIP, RIGHT, 2 VIEWS INDICATION: Right hip pain. FINDINGS: Two views of the right hip show no fracture, dislocation, or other acute abnormalities. IMPRESSION: Negative right hip. Dictated on workstation # [id number] Dict: 10/28/16 1551 Trans: 10/28/16 1554 [facility] [id number] Interpreted by: AMRLEN DEMARCO Electronically signed by: Reviewed: Reviewed by Me Diagonstic Imaging: Xray Plain Films/CT/US/NM/MRI: pelvis Comments NAME: KT ALCARAZ [facility] REC#: [id number] PT STATUS: REG ER : 1985 PHYSICIAN: VENKAT BHATIA ADMIT DATE: 10/28/16/ER Draft Date of Exam:10/28/16 PELVIS INDICATION: Hip injury after a fall. EXAMINATION: AP view of the pelvis was obtained. FINDINGS: No fracture or dislocation. IMPRESSION: Negative pelvis. Dictated on workstation # [id number] Dict: 10/28/16 1551 Trans: 10/28/16 1552 [id number] Interpreted by: MARLEN DEMARCO Electronically signed by: Reviewed: Reviewed by Me Departure Impression Impression: Primary Impression: Hip pain, right Disposition: 01 HOME, SELF-CARE Condition: Improved Departure-Patient Inst. Decision time for Depature: 16:00 Referrals: OSCAR HINDS MD (PCP) Primary Care Physician Patient Instructions: Hip Pain (DC) Add. Discharge Instructions: May resume physical therapy. Follow-up with your primary care provider or neurologist for continued pain in the right hip. Warm moist compression to the area of pain. Tylenol or ibuprofen for pain. All discharge instructions reviewed with patient and/or family. Voiced understanding. VENKAT BHATIA October 28, 2016 16:04
[2016-10-28 16:27] VITALS: BP 122/70
== END 2016-10-28 16:27 | disposition home or self-care (01) ==
LOC: EDUNIT# 15:08 → ER 15:09
DX: M25.551 Pain in right hip (principal); G40.909 Epilepsy, unspecified, not intractable, without status epilepticus; Z79.899 Other long term (current) drug therapy
CPT/HCPCS: 72170; 73502; 73552; 99285

== ENCOUNTER 2016-12-07 10:07 | Outpatient (RCR) | payer MEDICAID ==
[~2016-12-07 10:07] MED LIST changes: +TOPI200T25 PO
== END 2016-12-28 08:43 | disposition home or self-care (01) ==
PROVIDERS: ATTEND Neurological Surgery
DX: R26.81 Unsteadiness on feet (principal); G40.909 Epilepsy, unspecified, not intractable, without status epilepticus

== ENCOUNTER 2017-03-29 00:55 | Emergency (ER) | payer MEDICAID ==
[~2017-03-29] VITALS: Ht 177.8 cm; Wt 92.2 kg
--- NOTE | 2017-03-29 02:06 | ED Neurological Problem ---
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 Nursing Sepsis Screen: No Definite Risk Source: patient, other Exam Limitations: no limitations History of Present Illness Time seen by provider: 01:39 Initial Comments Patient presents to ER by private conveyance with chief complaint that she passed 2-3 days been feeling very sick and had a MAXIMUM TEMPERATURE of 104.2 tympanic at work. She pushed on and went to work anyways at about 2300 last night and then at 0020 a workmate found her in the room in a chair with her legs both in spasm and shaking and her voice being very hoarse called family to bring her in. In the past she's had vocal cord dysfunction as well as a history of seizures for which she takes Keppra and Topamax. She is been stable on her dose for several months. 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 Allergies and Home Medications Allergies Coded Allergies: cefaclor (Verified Allergy, Unknown, 12/19/13) latex (Verified Allergy, Unknown, 12/19/13) peanut (Verified Allergy, Unknown, 12/19/13) strawberry (Verified Allergy, Unknown, 10/28/16) venom-honey bee (Verified Allergy, Unknown, 12/19/13) Home Medications Levetiracetam 1,000 Mg Tablet, 2 EACH PO BID, #120 Ref 0 Prescribed by: MARLEN HARRY on 12/19/14 1549 Topiramate 200 Mg Tablet, 200 MG PO, (Reported) Constitutional: No chills, No diaphoresis, fever, malaise Eyes: Denies Blindness, Denies Blurred Vision, Denies Drainage Ears, Nose, Mouth, Throat: denies ear pain, denies ear discharge Respiratory: No cough, No short of breath Cardiovascular: No chest pain, No palpitations Gastrointestinal: No abdominal pain, No constipation, No diarrhea, No nausea, No vomiting Genitourinary: No discharge, No dysuria : No Musculoskeletal: No joint pain, No joint swelling Skin: No dryness, No pruritus, No rash Psychiatric/Neurological: Headache, Denies Numbness, [place] Seizures, Tonic Clonic Seizures Past Rhrqccc-[id number]-[id number] Hx Patient Social History Alcohol Use: Denies Use Recreational Drug Use: No Smoking Status: Never a Smoker 2nd Hand Smoke Exposure: No Recent Foreign Travel: No Contact w/Someone Who Travel: No Recent Infectious Disease Expo: No Recent Hopitalizations: No Immunizations Up To Date Tetanus Booster (TDap): More than 5yrs Date of Pneumonia Vaccine: Jun 14, 2011 Seasonal Allergies Seasonal Allergies: No Surgeries History of Surgeries: Yes (resection of benign breast masses, CERVIX, Dx Lap for adhesions) Surgeries: Abdominal, Appendectomy, Bowel Surgery, Breast, Orthopedic Respiratory History of Respiratory Disorde: Yes (vocal cord dysfunction) Respiratory Disorders: Asthma Cardiovascular History of Cardiac Disorders: No Neurological History of Neurological Disord: Yes (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) Neurological Disorders: Seizure Disorder Reproductive System : No Hx Reproductive Disorders: Yes (chronic PID, chronic pelvic pain) Sexually Transmitted Disease: No Female Reproductive Disorders: Ovarian Cyst Genitourinary History of Genitourinary Disor: No Gastrointestinal History of Gastrointestinal Di: No Musculoskeletal History of Musculoskeletal Dis: No Endocrine History of Endocrine Disorders: No HEENT History of HEENT Disorders: No Cancer History of Cancer: Yes Cancer: Breast, Cervical, Colon Psychosocial History of Psychiatric Problem: No Integumentary History of Skin or Integumenta: No Blood Transfusions History of Blood Disorders: No Family Medical History Significant Family History: No Pertinent Family Hx Family Medial History: Patient reports no known family medical history. Physical Exam Vital Signs Vital Sign - Last 12Hours 03/29/17 01:03 Temp 97.3 Pulse 86 Resp 16 B/P (MAP) 115/82 Pulse Ox 97 O2 Delivery Room Air Capillary Refill : Less Than 3 Seconds General Appearance: WD/WN, mild distress HEENT: PERRL/EOMI, other (nasal congestion and pharyngeal erythema with bilateral mucoid effusion and right TM with retraction.) Neck: non-tender, normal inspection Respiratory: chest non-tender, lungs clear, normal breath sounds Cardiovascular: normal peripheral pulses, regular rate, rhythm, no edema Peripheral Pulses: 2+ Dorsalis Pedis (R), 2+ Left Dors-Pedis (L) Gastrointestinal: normal bowel sounds, non tender, soft, no organomegaly Back: normal inspection, no CVA tenderness Extremities: normal inspection, no pedal edema, normal capillary refill Neurologic/Psychiatric: alert, oriented x 3, other (occasional uncontrollable tremor for a few seconds of the right leg and right hand.) Crainal Nerves: normal hearing, normal speech, PERRL Motor/Sensory: no motor deficit, no sensory deficit Skin: normal color, warm/dry Progress/Results/Core Measures Results/Orders Lab Results Laboratory Tests Test 03/29/17 00:55 03/29/17 02:50 03/29/17 03:40 Range/Units White Blood Count 8.7 4.3-11.0 10^3/uL Red Blood Count 4.78 4.35-5.85 10^6/uL Hemoglobin 14.6 11.5-16.0 G/DL Hematocrit 42 35-52 % Mean Corpuscular Volume 89 80-99 FL Mean Corpuscular Hemoglobin 31 25-34 PG Mean Corpuscular Hemoglobin Concent 34 32-36 G/DL Red Cell Distribution Width 12.1 10.0-14.5 % Platelet Count 180 130-400 10^3/uL Mean Platelet Volume 10.7 H 7.4-10.4 FL Neutrophils (%) (Auto) 69 42-75 % Lymphocytes (%) (Auto) 20 12-44 % Monocytes (%) (Auto) 9 0-12 % Eosinophils (%) (Auto) 2 0-10 % Basophils (%) (Auto) 0 0-10 % Neutrophils # (Auto) 6.0 1.8-7.8 X 10^3 Lymphocytes # (Auto) 1.7 1.0-4.0 X 10^3 Monocytes # (Auto) 0.8 0.0-1.0 X 10^3 Eosinophils # (Auto) 0.2 0.0-0.3 10^3/uL Basophils # (Auto) 0.0 0.0-0.1 10^3/uL Sodium Level 140 135-145 MMOL/L Potassium Level 4.4 3.6-5.0 MMOL/L Chloride Level 108 H 98-107 MMOL/L Carbon Dioxide Level 20 L 21-32 MMOL/L Anion Gap 12 5-14 MMOL/L Blood Urea Nitrogen 10 7-18 MG/DL Creatinine 0.97 0.60-1.30 MG/DL Estimat Glomerular Filtration Rate > 60 BUN/Creatinine Ratio 10 Glucose Level 93 70-105 MG/DL Calcium Level 10.0 8.5-10.1 MG/DL Total Bilirubin 0.3 0.1-1.0 MG/DL Aspartate Amino Transf (AST/SGOT) 23 5-34 U/L Alanine Aminotransferase (ALT/SGPT) 42 0-55 U/L Alkaline Phosphatase 55 40-136 U/L Total Protein 7.5 6.4-8.2 GM/DL Albumin 4.2 3.2-4.5 GM/DL Urine Color RED H Urine Clarity BLOODY H Urine pH 5 5-9 Urine Specific [place] 1.020 1.016-1.022 Urine Protein 2+ H NEGATIVE Urine Glucose (UA) NEGATIVE NEGATIVE Urine Ketones NEGATIVE NEGATIVE Urine Nitrite NEGATIVE NEGATIVE Urine Bilirubin NEGATIVE NEGATIVE Urine Urobilinogen NORMAL NORMAL MG/DL Urine Leukocyte Esterase 2+ H NEGATIVE Urine RBC (Auto) 5+ H NEGATIVE Urine RBC >100 H /HPF Urine WBC 2-5 /HPF Urine Squamous Epithelial Cells RARE /HPF Urine Crystals NONE /LPF Urine Bacteria TRACE /HPF Urine Casts PRESENT /LPF Urine Hyaline Casts RARE /LPF Urine Mucus SMALL H /LPF Urine Culture Indicated NO Urine Test NEGATIVE NEGATIVE Urine Opiates Screen NEGATIVE NEGATIVE Urine Oxycodone Screen NEGATIVE NEGATIVE Urine Methadone Screen NEGATIVE NEGATIVE Urine Propoxyphene Screen NEGATIVE NEGATIVE Urine Barbiturates Screen NEGATIVE NEGATIVE Ur Tricyclic Antidepressants Screen NEGATIVE NEGATIVE Urine Phencyclidine Screen NEGATIVE NEGATIVE Urine Amphetamines Screen POSITIVE H NEGATIVE Urine Methamphetamines Screen NEGATIVE NEGATIVE Urine Benzodiazepines Screen NEGATIVE NEGATIVE Urine Cocaine Screen NEGATIVE NEGATIVE Urine Cannabinoids Screen NEGATIVE NEGATIVE Group A Streptococcus Screen NEGATIVE NEGATIVE Micro Results Microbiology 03/29/17 Influenza Types A,B Antigen ([place]) - Final, Complete My Orders Orders - CIERRA CARLIN Cbc With Automated Diff (03/29/17 01:59) Comprehensive Metabolic Panel (03/29/17 01:59) Drug Screen Stat (Urine) (03/29/17 01:59) Rapid Strep A Screen (03/29/17 01:59) Ua Culture If Indicated (03/29/17 01:59) Influenza A And B Antigens (03/29/17 01:59) Urine Bedside (03/29/17 01:59) Hcg,Qualitative Urine (03/29/17 04:01) Ct Abd/Pelvis Wo(Kidney Stone) (03/29/17 04:04) Vital Signs/I&O Vital Sign - Last 12Hours 03/29/17 01:03 Temp 97.3 Pulse 86 Resp 16 B/P (MAP) 115/82 Pulse Ox 97 O2 Delivery Room Air Blood Pressure Mean: 93 Progress Note #1: Time: 02:19 Progress Note Patient presents some history of possible seizure activity which she says is not seizures just tremors and vocal dystonia. 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 She is having no airway obstruction. She is on her current stable dose of antiseizure medicine. We'll run some lab looking for anything that might have triggered this recurrence. She's had no incontinence, tongue biting or other evidence of seizures and is not postictal. Patient says she has not had seizures tonight. Progress Note #2: Time: 04:16 Progress Note Hematuria may indicate kidney stone. When I asked her again she says she has had some back discomfort. We'll go ahead and get a CT scan of her abdomen to evaluate without contrast. Patient states her last period was 3 months ago and has been extremely irregular ever since her ovarian cancer. She says she is not currently on her period. Diagnostic Imaging Diagonstic Imaging: CT Plain Films/CT/US/NM/MRI: abdomen, pelvis (without contrast) Comments No acute findings and lower thorax. No acute inflammatory obstructive process seen within the abdomen or pelvis. Punctate nonobstructing calculi in both renal collecting systems without evidence of acute obstructive uropathy. Hepatic steatosis. Reviewed: Reviewed [place] Study, Reviewed by Me Departure Impression Impression: Primary Impression: Vocal cord dysfunction Additional Impression: Hematuria Qualified Codes: R31.0 - Gross hematuria Disposition: 01 HOME, SELF-CARE Condition: Stable Departure-Patient Inst. Decision time for Depature: 04:53 Referrals: OSCAR HINDS MD (PCP) Primary Care Physician Patient Instructions: Seizures, Adult (DC) Add. Discharge Instructions: Drink plenty of fluids and follow-up with your primary care physician as needed. Return to the ER if you begin to experience fevers, nausea, shortness of breath, chest pain or other worrisome symptoms. All discharge instructions reviewed with patient and/or family. Voiced understanding. Work/School Note: Work Release Form Date Seen in the Emergency Department: Mar 29, 2017 Return to Work: Mar 30, 2017 Restrictions: No Restrictions CIERRA CARLIN Mar 29, 2017 02:06
[2017-03-29 02:13] LABS: BASOPHILS % (AUTO) 0 % (0-10); EOSINOPHILS # (AUTO) 0.2 10^3/uL (0.0-0.3); EOSINOPHILS % (AUTO) 2 % (0-10); LYMPHOCYTES # (AUTO) 1.7 X 10^3 (1.0-4.0); LYMPHOCYTES % (AUTO) 20 % (12-44); MEAN CORPUSCULAR HEMOGLOBIN 31 PG (25-34); MEAN CORPUSCULAR HGB CONC 34 G/DL (32-36); MEAN CORPUSCULAR VOLUME 89 FL (80-99); MEAN PLATELET VOLUME 10.7 FL (7.4-10.4); MONOCYTES # (AUTO) 0.8 X 10^3 (0.0-1.0); MONOCYTES % (AUTO) 9 % (0-12); NEUTROPHILS % (AUTO) 69 % (42-75); PLATELET COUNT 180 10^3/uL (130-400); RED BLOOD COUNT 4.78 10^6/uL (4.35-5.85); RED CELL DISTRIBUTION WIDTH 12.1 % (10.0-14.5); WHITE BLOOD COUNT 8.7 10^3/uL (4.3-11.0)
[2017-03-29 02:33] LABS: ALANINE AMINOTRANSFERASE 42 U/L (0-55); ALBUMIN 4.2 GM/DL (3.2-4.5); ANION GAP 12 MMOL/L (5-14); ASPARTATE AMINO TRANSFERASE 23 U/L (5-34); BILIRUBIN,TOTAL 0.3 MG/DL (0.1-1.0); BLOOD UREA NITROGEN 10 MG/DL (7-18); BUN/CREATININE RATIO 10; CARBON DIOXIDE 20 MMOL/L (21-32); CHLORIDE 108 MMOL/L (98-107); CREATININE SERUM 0.97 MG/DL (0.60-1.30); GFR ESTIMATED > 60; GLUCOSE 93 MG/DL (70-105); POTASSIUM 4.4 MMOL/L (3.6-5.0); SODIUM 140 MMOL/L (135-145); TOTAL PROTEIN 7.5 GM/DL (6.4-8.2)
[2017-03-29 02:59] LABS: BILIRUBIN,URINE NEGATIVE (NEGATIVE); KETONES,URINE NEGATIVE (NEGATIVE); LEUKOCYTE ESTERASE ,URINE 2+ (NEGATIVE); NITRITE,URINE NEGATIVE (NEGATIVE); PH,URINE 5 (5-9); PROTEIN,URINE 2+ (NEGATIVE); UROBILINOGEN,URINE NORMAL (NORMAL)
[2017-03-29 03:07] LABS: HYALINE CASTS, URINE RARE /LPF; SQUAMOUS EPITHELIAL CELL,UR RARE /HPF
[2017-03-29] MEDS ORDERED: KETOROLAC 30 MG/ML VIAL IVP ONE (05:00)
[2017-03-29 05:06] VITALS: BP 100/66
--- OUTSIDE RECORDS SUMMARY | 2017-03-29 07:01 | XMS REPORT ---
Author Author DEIRDRE CHOUDHURY [facility] Address [address] [place] [address] Care Team Providers Care Network Diagnostic Support Specialist Name Role Phone DEIRDRE CHOUDHURY Unavailable PROBLEMS Type Condition ICD9-CM Code [id number] Code Onset Dates Condition Status SNOMED Code Problem General counseling for prescription of oral contraceptives V25.01 Active [id number] Problem Unspecified breast screening V76.10 Active 591972685 Problem Acute bronchitis 466.0 Active 81286819 Problem Influenza with other respiratory manifestations 487.1 Active 3106010 Problem Cough 786.2 Active 03521297 Problem DTAP TEST V06.1 Active Problem Irregular menstrual cycle 626.4 Active 00630569 Problem Female infertility of unspecified origin 628.9 Active 9861380 ALLERGIES Substance Reaction Event Type Date Status Latex body swells Drug Allergy Jun, Active Bees/wasps anaphylaxis Non Drug Allergy Jun, Active nuts anaphylaxis Non Drug Allergy Jun, Active SOCIAL HISTORY No smoking Hx information available PLAN OF CARE Activity Details Follow Up prn Reason: VITAL SIGNS Height 70 in 2016-06-23 Weight 207.5 lbs 2016-06-23 Temperature 98.3 degrees Fahrenheit 2016-06-23 Heart Rate 64 bpm 2016-06-23 Respiratory Rate 18 2016-06-23 BMI 29.77 kg/m2 2016-06-23 Blood pressure systolic 120 mmHg 2016-06-23 Blood pressure diastolic 80 mmHg 2016-06-23 MEDICATIONS Medication Instructions Dosage Frequency Start Date End Date Duration Status Keppra 500 MG Orally every 12 hrs 1 tablet 12h Active Keppra 1,000 mg Orally every 12 hrs take 2 tablet by Oral route every 12 hours 12h Aug, Active Multivitamins - Active Topamax 50 mg Orally Twice a day 2 tablets 12h Active ZyrTEC 10 mg 1 Tablet by Oral route 1 time per day Jul, Active ProAir HFA 108 (90 Base) MCG/ACT Inhalation every 4 hrs 2 puffs as needed 4h Active Albuterol Sulfate 1.25 MG/3ML Inhalation every 8 hrs 3 ml as needed 8h Active RESULTS No Results PROCEDURES Procedure Date Ordered Related Diagnosis Body Site Office Visit, Est Pt., Level 3 Jun 23, 2016 IMMUNIZATIONS No Known Immunizations
--- NOTE | 2017-03-29 07:16 | Diagnostic Imaging Report ---
PROCEDURE: CT urinary tract, rule out kidney stone. TECHNIQUE: Multiple contiguous axial images were obtained through the abdomen and pelvis without the use of intravenous contrast. INDICATION: Complaining of blood in urine. History of colon CA with bowel resection. Comparison with 06/08/2016. FINDINGS: Lung bases are clear. There is a 2 mm nonobstructing calculus in the lower pole of the right kidney. Renal outlines are smooth. There is a hypodense area in the inferior portion of the left kidney which is demonstrated to be a cyst on previous CT scan with contrast. The ureters are not dilated. Bladder appears normal. There is a tiny hypodense lesion in the anterior midportion of the right lobe of the liver which was present previously and has not changed likely representing small cyst. Spleen appears normal. Pancreas is normal. Bile ducts and gallbladder are normal. Adrenal glands are not enlarged. Bowel gas pattern is normal throughout. No intra-abdominal adenopathy. No free air or free fluid. IMPRESSION: 1. Tiny punctate calcification inferiorly in the right kidney with no evidence for renal obstruction. 2. Hypodense lesions in the left kidney in the right lobe of the liver which are unchanged since previous study likely representing simple cyst. These findings are concordant with the preliminary report. Dictated by: Dictated on workstation # [id number]
== END 2017-03-29 05:04 | disposition home or self-care (01) ==
LOC: EDUNIT# 00:55 → ER 00:59
DX: J38.3 Other diseases of vocal cords (principal); G40.909 Epilepsy, unspecified, not intractable, without status epilepticus; G43.909 Migraine, unspecified, not intractable, without status migrainosus; Z79.899 Other long term (current) drug therapy; R31.0 Gross hematuria; Z85.3 Personal history of malignant neoplasm of breast; Z85.038 Personal history of other malignant neoplasm of large intestine; Z90.13 Acquired absence of bilateral breasts and nipples; Z85.43 Personal history of malignant neoplasm of ovary
CPT/HCPCS: 36415; 74176; 80053; 80306; 81000; 84703; 85025; 87430; 87804; 99283

== ENCOUNTER 2017-04-15 03:40 | Emergency (ER) | payer MEDICAID ==
[~2017-04-15] VITALS: Ht 180.3 cm; Wt 93.0 kg
[2017-04-15] MEDS: LACTATED RINGERS 1,000 ML IV ONE (04:14)
--- NOTE | 2017-04-15 04:23 | ED Abdominal Pain ---
General Chief Complaint: Abdominal/GI Problems Stated Complaint: BLOOD IN URINE,PELVIC PAIN,LOWER ABD PAIN Source of Information: Patient, Old Records Exam Limitations: Other (PT'S REPORTED PMH IS IN CONFLICT WITH DOCUMENTED PMH FROM OLD RECORDS) History of Present Illness Time Seen By Provider: 03:50 Initial Comments PT ARRIVES VIA POV --LEFT WORK TO COME TO ER ( WORKS AT [employer]) C/O LOWER ABDOMINAL PAIN AND DIFFICULTY URINATING SINCE 04/11/17 PAIN IS CONSTANT BUT WAXES AND WANES PAIN IS WORSE WHEN SHE TRIES TO URINATE--STATES SHE HAS NOT URINATED SINCE BOND UNDERWRITER OF 04/13/17 NO NAUSEA/VOMITING NO FEVER NO HISTORY OF SIMILAR HAS NOT TAKEN ANYTHING FOR PAIN LMP 16 MONTHS AGO, NO CONTROL PCP: ANJ[facility], ALSO SEES DR. SAEED Allergies and Home Medications Allergies Coded Allergies: cefaclor (Verified Allergy, Unknown, 12/19/13) latex (Verified Allergy, Unknown, 12/19/13) peanut (Verified Allergy, Unknown, 12/19/13) strawberry (Verified Allergy, Unknown, 10/28/16) venom-honey bee (Verified Allergy, Unknown, 12/19/13) Home Medications Albuterol Sulfate 1 Puff Puff, 2 PUFF IH Q4H, (Reported) 1 PUFF = 90 MCG Levetiracetam 1,000 Mg Tablet, 2 EACH PO BID, #120 Ref 0 Prescribed by: MARLEN HARRY on 12/19/14 1549 Topiramate 200 Mg Tablet, 200 MG PO, (Reported) [Flovent] , (Reported) Review of Systems Constitutional: no symptoms reported Respiratory: No Symptoms Reported Cardiovascular: No Symptoms Reported Gastrointestinal: See HPI, Abdominal Pain Genitourinary: See HPI Musculoskeletal: no symptoms reported Skin: no symptoms reported Psychiatric/Neurological: No Symptoms Reported Endocrine: No Symptoms Reported Hematologic/Lymphatic: No Symptoms Reported Past Mchnxij-Kpcwoh-Zmwrra Hx Patient Social History Alcohol Use: Past History (ETOH IN COLLEGE) Recreational Drug Use: No Smoking Status: Never a Smoker 2nd Hand Smoke Exposure: No Recent Foreign Travel: No Contact w/Someone Who Travel: No Recent Hopitalizations: No Immunizations Up To Date Tetanus Booster (TDap): More than 5yrs Date of Pneumonia Vaccine: Jun 14, 2011 Seasonal Allergies Seasonal Allergies: No Surgeries History of Surgeries: Yes (RESECTION FOR BENIGN BREAST MASSES, PER OLD RECORDS ; PT CLAIMS BREAST LUMPECTOMIES IN 2014 IN [place] FOR CANCER; CRYO SURGERY OF CERVIX X 2; DX LAP WITH LYSIS OF ADHESIONS AND APPY; PT CLAIMS COLON SURGERY FOR CANCER IN [place] 03/2016--"REMOVED 1 INCH OF MY COLON AND 22 INCHES OF MY INTESTINES"; RIGHT KNEE ACL REPAIR; BILATERAL CARPAL TUNNEL; LEFT ANKLE SURGERY ) Surgeries: Abdominal, Appendectomy, Bowel Surgery, Breast, Orthopedic Respiratory History of Respiratory Disorde: Yes ("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 ) Neurological Disorders: Seizure Disorder Reproductive System Hx Reproductive Disorders: Yes (CHRONIC PID, CHRONIC PELVIC PAIN; CERVICAL DYSPLASIA-S/P CRYO OF CERVIX X 2) Sexually Transmitted Disease: No Female Reproductive Disorders: Pelvic Inflammatory Dis, Ovarian Cyst Genitourinary History of Genitourinary Disor: No Gastrointestinal History of Gastrointestinal Di: No Musculoskeletal History of Musculoskeletal Dis: No Endocrine History of Endocrine Disorders: No HEENT History of HEENT Disorders: Yes ("VOCAL CORD DYSFUNCTION" SELF REPORTED) Cancer History of Cancer: Yes (PT CLAIMS "CERVICAL CANCER" BUT DR. FERNANDEZ HAS DOCUMENTED CERVICAL DYSPLASIA TREATED WITH CRYO X 2 IN 2006 AND 2010; PT CLAIMS "BREAST CANCER" IN 2014-CLAIMS LUMPECTOMIES, AND RADIATION DONE IN [place]--NO DOCUMENTATION OF THIS AND OLD RECORDS REPORT REMOVAL OF BENIGN BREAST MASSES; PT ALSO CLAIMS COLORECTAL CANCER 03/2016--CLAIMS HAD "1 INCH OF COLON AND 22 INCHES OF INTESTINE REMOVED" AND HAD "EXPERIMENTAL CHEMO INJECTION" --PT CLAIMS SHE IS "CLEARED" ON ALL OF THEM AND HAS NOT FOLLOWED UP WITH ONCOLOGIST ON ANY OF THESE ALLEGED CANCERS, AND CLAIMS SHE DOESN'T HAVE TO BECAUSE SHE IS "CLEAR"- -AGAIN THERE IS NO DOCUMENTATION OF ANY OF THESE CLAIMS. ) Cancer: Breast, Cervical, Colon Psychosocial History of Psychiatric Problem: No Integumentary History of Skin or Integumenta: No Blood Transfusions History of Blood Disorders: No Family Medical History Significant Family History: No Pertinent Family Hx Family Medial History: Patient reports no known family medical history. Physical Exam Vital Signs VS - Last 72 Hours, by Label 04/15/17 03:47 Temp 98.8 Pulse 92 Resp 20 B/P (MAP) 126/84 Pulse Ox 99 O2 Delivery Room Air Capillary Refill : General Appearance: WD/WN, no apparent distress, other (FLAT AFFECT. PT WEARING A BANDANA AND HEAD IS SHAVED--HAIR HAS NOT FALLEN OUT, AND STILL HAS EYEBROWS/EYELASHES AND OTHER BODY HAIR. ) HEENT: PERRL/EOMI Respiratory: normal breath sounds, no respiratory distress, no accessory muscle use Cardiovascular: regular rate, rhythm, no murmur Gastrointestinal: normal bowel sounds, soft, no organomegaly, no pulsatile mass , tenderness (DIFFUSE LOWER ABDOMINAL TENDERNESS--LEFT > RIGHT), other (VERY LARGE PFANNENSTIEL SCAR--FROM HIP TO HIP ( SIMILAR TO ABDOMINOPLASTY SCAR) NOT TYPICAL SCAR OF BOWEL RESECTION) Extremities: normal inspection, normal capillary refill Back: no CVA tenderness, no vertebral tenderness Neurologic/Psychiatric: offal trimmer II-XII nml as tested, no motor/sensory deficits, alert, oriented x 3 Skin: normal color, warm/dry Progress/Results/Core Measures Results/Orders Lab Results Laboratory Tests Test 04/15/17 04:00 04/15/17 04:10 Range/Units Urine Color YELLOW Urine Clarity VERY CLOUDY H Urine pH 6 5-9 Urine Specific [place] 1.025 H 1.016-1.022 Urine Protein NEGATIVE NEGATIVE Urine Glucose (UA) NEGATIVE NEGATIVE Urine Ketones NEGATIVE NEGATIVE Urine Nitrite NEGATIVE NEGATIVE Urine Bilirubin NEGATIVE NEGATIVE Urine Urobilinogen NORMAL NORMAL MG/DL Urine Leukocyte Esterase 1+ H NEGATIVE Urine RBC (Auto) 3+ H NEGATIVE Urine RBC 2-5 H /HPF Urine WBC RARE /HPF Urine Squamous Epithelial Cells TNTC H /HPF Urine Crystals NONE /LPF Urine Bacteria TRACE /HPF Urine Casts NONE /LPF Urine Mucus NEGATIVE /LPF Urine Culture Indicated NO Urine Opiates Screen NEGATIVE NEGATIVE Urine Oxycodone Screen NEGATIVE NEGATIVE Urine Methadone Screen NEGATIVE NEGATIVE Urine Propoxyphene Screen NEGATIVE NEGATIVE Urine Barbiturates Screen NEGATIVE NEGATIVE Ur Tricyclic Antidepressants Screen NEGATIVE NEGATIVE Urine Phencyclidine Screen NEGATIVE NEGATIVE Urine Amphetamines Screen NEGATIVE NEGATIVE Urine Methamphetamines Screen NEGATIVE NEGATIVE Urine Benzodiazepines Screen NEGATIVE NEGATIVE Urine Cocaine Screen NEGATIVE NEGATIVE Urine Cannabinoids Screen NEGATIVE NEGATIVE White Blood Count 11.5 H 4.3-11.0 10^3/uL Red Blood Count 4.75 4.35-5.85 10^6/uL Hemoglobin 14.6 11.5-16.0 G/DL Hematocrit 42 35-52 % Mean Corpuscular Volume 88 80-99 FL Mean Corpuscular Hemoglobin 31 25-34 PG Mean Corpuscular Hemoglobin Concent 35 32-36 G/DL Red Cell Distribution Width 12.5 10.0-14.5 % Platelet Count 164 130-400 10^3/uL Mean Platelet Volume 9.6 7.4-10.4 FL Neutrophils (%) (Auto) 77 H 42-75 % Lymphocytes (%) (Auto) 14 12-44 % Monocytes (%) (Auto) 7 0-12 % Eosinophils (%) (Auto) 2 0-10 % Basophils (%) (Auto) 0 0-10 % Neutrophils # (Auto) 8.9 H 1.8-7.8 X 10^3 Lymphocytes # (Auto) 1.6 1.0-4.0 X 10^3 Monocytes # (Auto) 0.9 0.0-1.0 X 10^3 Eosinophils # (Auto) 0.2 0.0-0.3 10^3/uL Basophils # (Auto) 0.0 0.0-0.1 10^3/uL Sodium Level 141 135-145 MMOL/L Potassium Level 3.6 3.6-5.0 MMOL/L Chloride Level 105 98-107 MMOL/L Carbon Dioxide Level 25 21-32 MMOL/L Anion Gap 11 5-14 MMOL/L Blood Urea Nitrogen 11 7-18 MG/DL Creatinine 0.84 0.60-1.30 MG/DL Estimat Glomerular Filtration Rate > 60 BUN/Creatinine Ratio 13 Glucose Level 107 H 70-105 MG/DL Calcium Level 9.8 8.5-10.1 MG/DL Total Bilirubin 0.3 0.1-1.0 MG/DL Aspartate Amino Transf (AST/SGOT) 24 5-34 U/L Alanine Aminotransferase (ALT/SGPT) 64 H 0-55 U/L Alkaline Phosphatase 65 40-136 U/L Total Protein 8.1 6.4-8.2 GM/DL Albumin 4.6 H 3.2-4.5 GM/DL Amylase Level 60 25-125 U/L Lipase 45 8-78 U/L Serum Test, Qualitative NEGATIVE NEGATIVE My Orders Orders - TRENA HILLS DO Saline Lock/Iv-Start (04/15/17 03:51) Amylase (04/15/17 03:51) Cbc With Automated Diff (04/15/17 03:51) Comprehensive Metabolic Panel (04/15/17 03:51) Drug Screen Stat (Urine) (04/15/17 03:51) Lipase (04/15/17 03:51) Ua Culture If Indicated (04/15/17 03:51) Saline Lock/Iv-Start (04/15/17 03:51) Lactated Ringers (Lr 1000 Ml Iv Solution (04/15/17 03:51) Hcg,Qualitative Serum (04/15/17 03:51) Ct Abd/Pelvis Wo(Kidney Stone) (04/15/17 04:51) Abdomen, Flat & Upright/Decub (04/15/17 04:51) Ketorolac Injection (Toradol Injection) (04/15/17 05:00) Medications Given in ED Current Medications Medications Dose Ordered Sig/Sourav Route Start Time Stop Time Status Last Admin Dose Admin Ketorolac Tromethamine 30 mg ONCE ONCE IVP 04/15/17 05:00 04/15/17 05:01 DC 04/15/17 05:24 30 MG Lactated Ringer's 1,000 ml @ 0 mls/hr Q0M ONCE IV 04/15/17 03:51 04/15/17 03:57 DC 04/15/17 04:14 999 MLS/HR Vital Signs/I&O Vital Sign - Last 12Hours 04/15/17 03:47 Temp 98.8 Pulse 92 Resp 20 B/P (MAP) 126/84 Pulse Ox 99 O2 Delivery Room Air Diagnostic Imaging Comments ABDOMEN XRAYS--NO ACUTE PROCESS, PENDING RADIOLOGIST REVIEW CT ABDOMEN/PELVIS--ACUTE SIGMOID DIVERTICULITIS, PER [facility] VIA FAX @ [phone] Reviewed: Reviewed by Me Departure Impression Impression: Primary Impression: Diverticulitis Disposition: 01 HOME, SELF-CARE Condition: Stable Departure-Patient Inst. Referrals: TRICIA SAEED [place] [facility] [place]ructions: Diverticulitis (DC) Add. Discharge Instructions: CLEAR LIQUIDS--WATER, BROTH, JELLO, GATORADE NO FOOD UNTIL YOU ARE RECHECKED AND CLEARED BY YOUR DR FOLLOW UP WITH DR. SAEED OR [facility] IN 2-3 DAYS IF NO BETTER, RETURN TO ER IF WORSE All discharge instructions reviewed with patient and/or family. Voiced understanding. Scripts Hydrocodone/Acetaminophen (Hydrocodon -Acetaminophen 5-325) 1 Each Tablet 1 EACH PO Q4H, #12 TAB Prov: TRENA HILLS DO 04/15/17 Lactobacillus Acidophilus (Acidophilus) 1 Each Capsule 2 EACH PO QID, #80 CAP Prov: TRENA HILLS DO 04/15/17 Metronidazole (Flagyl) 500 Mg Tablet 500 MG PO QID for FOR INFECTION, #40 TAB Prov: STEVEN HILLSA K 04/15/17 Ciprofloxacin HCl (Cipro) 500 Mg Tablet 500 MG PO BID, #20 TAB Prov: TRENA HILLS DO 04/15/17 TRENA HILLS DO Apr 15, 2017 04:23
[2017-04-15 04:26] LABS: BASOPHILS % (AUTO) 0 % (0-10); EOSINOPHILS # (AUTO) 0.2 10^3/uL (0.0-0.3); EOSINOPHILS % (AUTO) 2 % (0-10); LYMPHOCYTES # (AUTO) 1.6 X 10^3 (1.0-4.0); LYMPHOCYTES % (AUTO) 14 % (12-44); MEAN CORPUSCULAR HEMOGLOBIN 31 PG (25-34); MEAN CORPUSCULAR HGB CONC 35 G/DL (32-36); MEAN CORPUSCULAR VOLUME 88 FL (80-99); MEAN PLATELET VOLUME 9.6 FL (7.4-10.4); MONOCYTES # (AUTO) 0.9 X 10^3 (0.0-1.0); MONOCYTES % (AUTO) 7 % (0-12); NEUTROPHILS # (AUTO) 8.9 X 10^3 (1.8-7.8); NEUTROPHILS % (AUTO) 77 % (42-75); PLATELET COUNT 164 10^3/uL (130-400); RED BLOOD COUNT 4.75 10^6/uL (4.35-5.85); RED CELL DISTRIBUTION WIDTH 12.5 % (10.0-14.5); WHITE BLOOD COUNT 11.5 10^3/uL (4.3-11.0)
[2017-04-15 04:29] LABS: BILIRUBIN,URINE NEGATIVE (NEGATIVE); KETONES,URINE NEGATIVE (NEGATIVE); LEUKOCYTE ESTERASE ,URINE 1+ (NEGATIVE); NITRITE,URINE NEGATIVE (NEGATIVE); PH,URINE 6 (5-9); PROTEIN,URINE NEGATIVE (NEGATIVE); UROBILINOGEN,URINE NORMAL (NORMAL)
[2017-04-15] MEDS ORDERED: Flovent (04:31)
[2017-04-15] MEDS ORDERED: RT-ALBUINH IH (04:31)
[2017-04-15 04:38] LABS: SQUAMOUS EPITHELIAL CELL,UR TNTC /HPF; WBC,URINE RARE /HPF
[2017-04-15 04:45] LABS: ALANINE AMINOTRANSFERASE 64 U/L (0-55); ALBUMIN 4.6 GM/DL (3.2-4.5); AMYLASE 60 U/L (25-125); ANION GAP 11 MMOL/L (5-14); ASPARTATE AMINO TRANSFERASE 24 U/L (5-34); BILIRUBIN,TOTAL 0.3 MG/DL (0.1-1.0); BLOOD UREA NITROGEN 11 MG/DL (7-18); BUN/CREATININE RATIO 13; CALCIUM 9.8 MG/DL (8.5-10.1); CARBON DIOXIDE 25 MMOL/L (21-32); CHLORIDE 105 MMOL/L (98-107); CREATININE SERUM 0.84 MG/DL (0.60-1.30); GFR ESTIMATED > 60; GLUCOSE 107 MG/DL (70-105); LIPASE 45 U/L (8-78); POTASSIUM 3.6 MMOL/L (3.6-5.0); SODIUM 141 MMOL/L (135-145); TOTAL PROTEIN 8.1 GM/DL (6.4-8.2)
[2017-04-15] MEDS: KETOROLAC 30 MG/ML VIAL IVP ONE (05:24)
[2017-04-15] MEDS: metroNIDAZOLE 500 MG (FLAGYL) TAB PO ONE (06:05)
[2017-04-15] MEDS: CIPROFLOXACIN 500 MG (CIPRO) TABLET PO SCH (06:06)
[2017-04-15] MEDS ORDERED: LACT1CAP8 PO (06:07)
[2017-04-15] MEDS ORDERED: HYDR-3812 PO (06:07)
[2017-04-15] MEDS ORDERED: CIPR-225 PO (06:07)
[2017-04-15] MEDS ORDERED: METR500T PO (06:07)
[2017-04-15 06:12] VITALS: BP 124/80
--- NOTE | 2017-04-15 07:18 | Diagnostic Imaging Report ---
INDICATION: Three-day history of left lower quadrant pain. TECHNIQUE: Supine and upright view of the abdomen. CORRELATION STUDY: None. FINDINGS: Imaging of the abdomen demonstrates the bowel gas pattern to be unremarkable and without evidence for obstruction. No significant differential air-fluid levels. No evidence for free air. No pathologic intraabdominal calcifications. IMPRESSION: 1. Unremarkable abdominal examination. Dictated by: Dictated on workstation # [id number]
--- NOTE | 2017-04-15 07:28 | Diagnostic Imaging Report ---
PROCEDURE: CT urinary tract, rule out kidney stone. TECHNIQUE: Multiple contiguous axial images were obtained through the abdomen and pelvis without the use of intravenous contrast. INDICATION: Three-day history of left lower quadrant pain. CORRELATION STUDY: 03/29/2017. FINDINGS: LOWER THORAX: Clear. LIVER: Subcentimeter low-density areas within the liver are nonspecific. GALLBLADDER: Present and unremarkable. No bile duct dilatation. SPLEEN: Unremarkable. PANCREAS: Unremarkable. ADRENAL GLANDS: Unremarkable. KIDNEYS: Nonobstructing calculi within both kidneys. Probable simple cyst within the lower pole of left kidney, no hydronephrosis. ABDOMINAL AORTA: Unremarkable, nonaneurysmal. GASTROINTESTINAL TRACT: Mild bowel wall thickening with pericolonic stranding and inflamed diverticulum within the sigmoid colon is noted most compatible with acute diverticulitis. No evidence for significant extraluminal gas or abscess formation at this time. Appendix appears to be likely surgically absent. URINARY BLADDER: Unremarkable. REPRODUCTIVE: Uterus and adnexa demonstrate fullness of the adnexal structures. Left ovary is in very close proximity to the area of inflammation about the sigmoid colon. Trace free pelvic fluid. OSSEOUS STRUCTURES: No acute abnormality. IMPRESSION: 1. Findings most compatible with acute sigmoid diverticulitis. No definitive abscess formation or significant extraluminal gas at this time. A preliminary report was provided by [employer]. Dictated by: Dictated on workstation # [id number]
== END 2017-04-15 06:12 | disposition home or self-care (01) ==
LOC: EDUNIT# 03:40 → ER 03:43
DX: K57.92 Diverticulitis of intestine, part unspecified, without perforation or abscess without bleeding (principal); J45.909 Unspecified asthma, uncomplicated; G40.909 Epilepsy, unspecified, not intractable, without status epilepticus; Z87.448 Personal history of other diseases of urinary system; Z85.41 Personal history of malignant neoplasm of cervix uteri; Z85.3 Personal history of malignant neoplasm of breast; Z90.49 Acquired absence of other specified parts of digestive tract; Z85.038 Personal history of other malignant neoplasm of large intestine
CPT/HCPCS: 36415; 74020; 74176; 80053; 80306; 81000; 82150; 83690; 84703; 85025

== ENCOUNTER 2017-06-11 17:14 | Observation (INO) | payer MEDICAID ==
[2017-06-11] VITALS (14 sets, daily range): BP systolic 111–121; BP diastolic 74–89
[~2017-06-11] VITALS: Ht 172.7 cm; Wt 95.9 kg
[~2017-06-11 17:14] MED LIST changes: +CIPR-225 PO; +Flovent; +LACT1CAP8 PO; +METR500T PO; +RT-ALBUINH IH
[2017-06-11] MEDS ORDERED: LORazepam INJ 2 MG/ML (ATIVAN) VIAL ONE (17:17)
[2017-06-11] MEDS ORDERED: NS IV 1000 ML 1,000 ML IV ONE (17:19)
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
[2017-06-11] MEDS ORDERED: LORazepam INJ 2 MG/ML (ATIVAN) VIAL IVP ONE ×2 (17:30→18:00)
--- NOTE | 2017-06-11 17:31 | ED Neurological Problem ---
General Chief Complaint: Unresponsive Stated Complaint: UNRESPONSIVE Source: patient Exam Limitations: no limitations History of Present Illness Time seen by provider: 17:15 Initial Comments Here by EMS with report of being unresponsive and seizure. Patient has history of colon and cervical cancer. Patient I will provide other history currently. She is unresponsive and noted to have a seizure just after arrival to the ER. No family available for questions currently. EMS was called after patient was found to be unresponsive. No witnessed seizure at home. 1740: Family arrives and provides additional history that the patient has had a lot of stress at work recently and over the last 24-36 hours she has been sleeping fairly persistently. Unsure if she is taking her meds and in fact the father is not sure that she picked up her new prescription. Timing/Duration: 1/2 hour Severity: severe Associated Symptoms: seizures Allergies and Home Medications Allergies Coded Allergies: cefaclor (Verified Allergy, Unknown, 12/19/13) latex (Verified Allergy, Unknown, 12/19/13) peanut (Verified Allergy, Unknown, 12/19/13) strawberry (Verified Allergy, Unknown, 10/28/16) venom-honey bee (Verified Allergy, Unknown, 12/19/13) Home Medications Albuterol Sulfate 1 Puff Puff, 2 PUFF IH Q4H, (Reported) 1 PUFF = 90 MCG Ciprofloxacin HCl 500 Mg Tablet, 500 MG PO BID, #20 Prescribed by: TRENA HILLS on 04/15/17 0607 Hydrocodone Bit/Acetaminophen 1 Each Tablet, 1 EACH PO Q4H, #12 Prescribed by: TRENA HILLS on 04/15/17 0607 Lactobacillus Acidophilus 1 Each Capsule, 2 EACH PO QID, #80 Prescribed by: TRENA HILLS on 04/15/17 0607 Levetiracetam 1,000 Mg Tablet, 2 EACH PO BID, #120 Ref 0 Prescribed by: MARLEN HARRY on 12/19/14 1549 Metronidazole 500 Mg Tablet, 500 MG PO QID, #40 Prescribed by: TRENA HILLS on 04/15/17 0607 Topiramate 200 Mg Tablet, 200 MG PO, (Reported) [Flovent] , (Reported) Constitutional: see HPI Other Unable to complete review of systems due to altered mental status and seizures. Past Khaxeur-Kcaotf-Nicvax Hx Patient Social History 2nd Hand Smoke Exposure: No Recent Hopitalizations: No Immunizations Up To Date Tetanus Booster (TDap): More than 5yrs Date of Pneumonia Vaccine: Jun 14, 2011 Seasonal Allergies Seasonal Allergies: No Surgeries History of Surgeries: Yes Surgeries: Abdominal, Appendectomy, Bowel Surgery, Breast, Orthopedic Respiratory History of Respiratory Disorde: Yes ("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") Respiratory Disorders: Asthma Cardiovascular History of Cardiac Disorders: No Neurological History of Neurological Disord: Yes Neurological Disorders: Seizure Disorder Reproductive System Hx Reproductive Disorders: Yes (CHRONIC PID, CHRONIC PELVIC PAIN; CERVICAL DYSPLASIA-S/P CRYO OF CERVIX X 2) Sexually Transmitted Disease: No Female Reproductive Disorders: Pelvic Inflammatory Dis, Ovarian Cyst Genitourinary History of Genitourinary Disor: No Gastrointestinal History of Gastrointestinal Di: No Musculoskeletal History of Musculoskeletal Dis: No Endocrine History of Endocrine Disorders: No HEENT History of HEENT Disorders: Yes ("VOCAL CORD DYSFUNCTION" SELF REPORTED) Cancer History of Cancer: Yes Cancer: Breast, Cervical, Colon Psychosocial History of Psychiatric Problem: No Integumentary History of Skin or Integumenta: No Blood Transfusions History of Blood Disorders: No Reviewed Nursing Assessment Reviewed/Agree w Nursing PMH: Yes Family Medical History Significant Family History: No Pertinent Family Hx Other History per records reviewed as patient is unable to provide information. Family Medial History: Patient reports no known family medical history. Physical Exam Vital Signs Vital Sign - Last 12Hours 06/11/17 06/11/17 17:14 18:42 Temp 98.0 Pulse 88 Resp 16 B/P (MAP) 136/90 (105) Pulse Ox 97 O2 Delivery Room Air Capillary Refill : General Appearance: WD/WN, other (unresponsive) HEENT: PERRL/EOMI, pharynx normal Neck: full range of motion, supple Respiratory: lungs clear, normal breath sounds Cardiovascular: regular rate, rhythm, no murmur Gastrointestinal: non tender, soft Back: normal inspection, no CVA tenderness, no vertebral tenderness Extremities: non-tender, normal inspection Neurologic/Psychiatric: other (unresponsive) Crainal Nerves: other (unresponsive with seizures with eyes point to the right during seizure.) Skin: normal color, warm/dry Progress/Results/Core Measures Results/Orders Lab Results Laboratory Tests Test 06/11/17 17:15 06/11/17 17:40 06/11/17 18:04 06/11/17 18:05 Range/Units White Blood Count 6.8 4.3-11.0 10^3/uL Red Blood Count 4.94 4.35-5.85 10^6/uL Hemoglobin 15.2 11.5-16.0 G/DL Hematocrit 44 35-52 % Mean Corpuscular Volume 89 80-99 FL Mean Corpuscular Hemoglobin 31 25-34 PG Mean Corpuscular Hemoglobin Concent 35 32-36 G/DL Red Cell Distribution Width 12.8 10.0-14.5 % Platelet Count 173 130-400 10^3/uL Mean Platelet Volume 9.8 7.4-10.4 FL Neutrophils (%) (Auto) 58 42-75 % Lymphocytes (%) (Auto) 28 12-44 % Monocytes (%) (Auto) 10 0-12 % Eosinophils (%) (Auto) 4 0-10 % Basophils (%) (Auto) 0 0-10 % Neutrophils # (Auto) 3.9 1.8-7.8 X 10^3 Lymphocytes # (Auto) 1.9 1.0-4.0 X 10^3 Monocytes # (Auto) 0.6 0.0-1.0 X 10^3 Eosinophils # (Auto) 0.3 0.0-0.3 10^3/uL Basophils # (Auto) 0.0 0.0-0.1 10^3/uL Sodium Level 141 135-145 MMOL/L Potassium Level 4.1 3.6-5.0 MMOL/L Chloride Level 105 98-107 MMOL/L Carbon Dioxide Level 24 21-32 MMOL/L Anion Gap 12 5-14 MMOL/L Blood Urea Nitrogen 11 7-18 MG/DL Creatinine 0.83 0.60-1.30 MG/DL Estimat Glomerular Filtration Rate > 60 BUN/Creatinine Ratio 13 Glucose Level 83 70-105 MG/DL Calcium Level 9.3 8.5-10.1 MG/DL Magnesium Level 2.1 1.8-2.4 MG/DL Total Bilirubin 0.5 0.1-1.0 MG/DL Aspartate Amino Transf (AST/SGOT) 32 5-34 U/L Alanine Aminotransferase (ALT/SGPT) 95 H 0-55 U/L Alkaline Phosphatase 56 40-136 U/L Total Protein 7.6 6.4-8.2 GM/DL Albumin 4.3 3.2-4.5 GM/DL Thyroid Stimulating Hormone (TSH) 1.10 0.35-4.94 UIU/ML Urine Color YELLOW Urine Clarity CLEAR Urine pH 5 5-9 Urine Specific [place] 1.025 H 1.016-1.022 Urine Protein NEGATIVE NEGATIVE Urine Glucose (UA) NEGATIVE NEGATIVE Urine Ketones NEGATIVE NEGATIVE Urine Nitrite NEGATIVE NEGATIVE Urine Bilirubin NEGATIVE NEGATIVE Urine Urobilinogen NORMAL NORMAL MG/DL Urine Leukocyte Esterase NEGATIVE NEGATIVE Urine RBC (Auto) 2+ H NEGATIVE Urine RBC 5-10 H /HPF Urine WBC NONE /HPF Urine Squamous Epithelial Cells 5-10 /HPF Urine Crystals NONE /LPF Urine Bacteria NEGATIVE /HPF Urine Casts NONE /LPF Urine Mucus NEGATIVE /LPF Urine Culture Indicated NO Glucometer 79 70-110 MG/DL Urine Opiates Screen NEGATIVE NEGATIVE Urine Oxycodone Screen NEGATIVE NEGATIVE Urine Methadone Screen NEGATIVE NEGATIVE Urine Propoxyphene Screen NEGATIVE NEGATIVE Urine Barbiturates Screen NEGATIVE NEGATIVE Ur Tricyclic Antidepressants Screen NEGATIVE NEGATIVE Urine Phencyclidine Screen NEGATIVE NEGATIVE Urine Amphetamines Screen POSITIVE H NEGATIVE Urine Methamphetamines Screen NEGATIVE NEGATIVE Urine Benzodiazepines Screen NEGATIVE NEGATIVE Urine Cocaine Screen NEGATIVE NEGATIVE Urine Cannabinoids Screen NEGATIVE NEGATIVE My Orders Orders - MARLEN HARRY MD Lorazepam Injection (Ativan Injection) (06/11/17 17:17) Cbc With Automated Diff (06/11/17 17:19) Comprehensive Metabolic Panel (06/11/17 17:19) Drug Screen Stat (Urine) (06/11/17 17:19) Magnesium (06/11/17 17:19) Thyroid Stimulating Hormone (06/11/17 17:19) Ua Culture If Indicated (06/11/17 17:19) Ct Head Wo (06/11/17 17:19) Saline Lock/Iv-Start (06/11/17 17:19) Ns Iv 1000 Ml (Sodium Chloride 0.9%) (06/11/17 17:19) Chest 1 View, Ap/Pa Only (06/11/17 17:19) Lorazepam Injection (Ativan Injection) (06/11/17 17:30) Levetiracetam Injection (Keppra Injectio (06/11/17 17:34) Levetiracetam Injection (Keppra Injectio (06/11/17 17:34) Ns (Ivpb) (Sodium Chloride 0.9% Ivpb Bag (06/11/17 17:36) Lorazepam Injection (Ativan Injection) (06/11/17 18:00) Medications Given in ED Current Medications Medications Dose Ordered Sig/Sourav Route Start Time Stop Time Status Last Admin Dose Admin Lorazepam 2 mg ONCE ONCE IVP 06/11/17 17:30 06/11/17 17:31 DC 06/11/17 17:20 2 MG Lorazepam 2 mg ONCE ONCE IVP 06/11/17 18:00 06/11/17 18:01 DC 06/11/17 17:58 2 MG Sodium Chloride 1,000 ml @ 0 mls/hr Q0M ONCE IV 06/11/17 17:19 06/11/17 17:22 DC 06/11/17 17:26 1,000 MLS/HR Vital Signs/I&O Vital Sign - Last 12Hours 06/11/17 06/11/17 17:14 18:42 Temp 98.0 Pulse 88 77 Resp 16 16 B/P (MAP) 136/90 (105) 118/79 (92) Pulse Ox 97 O2 Delivery Room Air Room Air Progress Note : Progress Note Seen and evaluated on arrival by EMS. IV by EMS. Labs, CT head, UA, UDS, Burr catheter ordered. Ativan 2 mg IV due to seizure that persisted. Keppra [address]. 1754: Patient began having seizure after CT scan and repeat Ativan dosing 2 mg IV given. Monitor patient. 1907: No significant findings other than amphetamine on urine drug screen. Patient has quit seizing at this point. CT is negative. I did discuss the case with Dr. Garner. Castano as patient for admission, observation status. We will continue Keppra IV with anticipation of going home in the morning if improved after loading on seizure medicines. Patient will go to ICU now. Family informed and agrees. Diagnostic Imaging Plain Films/CT/US/NM/MRI: head Comments NAME: KT ALCARAZ MED REC#: [id number] PT STATUS: REG ER : 1985 PHYSICIAN: MARLEN HARRY MD ADMIT DATE: 06/11/17/ER Signed Date of Exam: 06/11/17 CT HEAD WO PROCEDURE: CT head without contrast. TECHNIQUE: Multiple contiguous axial images were obtained through the brain without the use of intravenous contrast. INDICATION: Unresponsive, history of colon cancer COMPARISON: 09/30/2016 FINDINGS: Ventricles are normal in size, shape, and position. There is no midline shift or mass effect. There is no hemorrhage or evidence of acute ischemia. No cerebral edema is identified. The bony calvarium, visualized paranasal sinuses and mastoids are clear. IMPRESSION: Negative CT head. Dictated by: Dictated on workstation # [id number] Dict: 06/11/171807 Trans: 06/11/171813 Interpreted by: BRENTON MOLINA Electronically signed by: BRENTON MOLINA 06/11/171813 Departure Communication (Admissions) Time/Spoke to Admitting Phy: 19:08 Impression Impression: Primary Impression: Seizure disorder, status epilepticus, convulsive Disposition: 09 ADMITTED INPATIENT Condition: Stable Admissions Decision to Admit Reason: Admit from ER (General) Decision to Admit/Date: Jun 11, 2017 Time/Decision to Admit Time: 19:08 Departure-Patient Inst. Referrals: NO,LOCAL PHYSICIAN (PCP/Family) Primary Care Physician MARLEN HARRY MD Jun 11, 2017 17:31
[2017-06-11] MEDS ORDERED: LEVETIRACETAM 500 MG/5 ML (KEPPRA) VIAL IV ONE (17:34)
[2017-06-11] MEDS ORDERED: LEVETIRACETAM INJECTION 1,000 MG in NS (IVPB) 100 ML IV STA (17:34)
[2017-06-11] MEDS ORDERED: NS (IVPB) 100 ML ONE (17:36)
[2017-06-11 17:38] LABS: BASOPHILS % (AUTO) 0 % (0-10); EOSINOPHILS # (AUTO) 0.3 10^3/uL (0.0-0.3); EOSINOPHILS % (AUTO) 4 % (0-10); HEMATOCRIT 44 % (35-52); HEMOGLOBIN 15.2 G/DL (11.5-16.0); LYMPHOCYTES # (AUTO) 1.9 X 10^3 (1.0-4.0); LYMPHOCYTES % (AUTO) 28 % (12-44); MEAN CORPUSCULAR HEMOGLOBIN 31 PG (25-34); MEAN CORPUSCULAR HGB CONC 35 G/DL (32-36); MEAN CORPUSCULAR VOLUME 89 FL (80-99); MEAN PLATELET VOLUME 9.8 FL (7.4-10.4); MONOCYTES # (AUTO) 0.6 X 10^3 (0.0-1.0); MONOCYTES % (AUTO) 10 % (0-12); NEUTROPHILS # (AUTO) 3.9 X 10^3 (1.8-7.8); NEUTROPHILS % (AUTO) 58 % (42-75); PLATELET COUNT 173 10^3/uL (130-400); RED BLOOD COUNT 4.94 10^6/uL (4.35-5.85); RED CELL DISTRIBUTION WIDTH 12.8 % (10.0-14.5); WHITE BLOOD COUNT 6.8 10^3/uL (4.3-11.0)
[2017-06-11 17:53] LABS: BILIRUBIN,URINE NEGATIVE (NEGATIVE); CLARITY,URINE CLEAR; COLOR,URINE YELLOW; GLUCOSE, URINE (UA) NEGATIVE (NEGATIVE); KETONES,URINE NEGATIVE (NEGATIVE); LEUKOCYTE ESTERASE ,URINE NEGATIVE (NEGATIVE); NITRITE,URINE NEGATIVE (NEGATIVE); PH,URINE 5 (5-9); PROTEIN,URINE NEGATIVE (NEGATIVE); UROBILINOGEN,URINE NORMAL (NORMAL)
[2017-06-11 17:59] LABS: BACTERIA,URINE NEGATIVE /HPF
[2017-06-11 17:59] LABS: ALANINE AMINOTRANSFERASE 95 U/L (0-55); ALBUMIN 4.3 GM/DL (3.2-4.5); ALKALINE PHOSPHATASE 56 U/L (40-136); BILIRUBIN,TOTAL 0.5 MG/DL (0.1-1.0); BUN/CREATININE RATIO 13; CALCIUM 9.3 MG/DL (8.5-10.1); CARBON DIOXIDE 24 MMOL/L (21-32); CHLORIDE 105 MMOL/L (98-107); CREATININE SERUM 0.83 MG/DL (0.60-1.30); GFR ESTIMATED > 60; GLUCOSE 83 MG/DL (70-105); MAGNESIUM 2.1 MG/DL (1.8-2.4); POTASSIUM 4.1 MMOL/L (3.6-5.0); SODIUM 141 MMOL/L (135-145); TOTAL PROTEIN 7.6 GM/DL (6.4-8.2)
--- NOTE | 2017-06-11 18:13 | Diagnostic Imaging Report ---
PROCEDURE: CT head without contrast. TECHNIQUE: Multiple contiguous axial images were obtained through the brain without the use of intravenous contrast. INDICATION: Unresponsive, history of colon cancer COMPARISON: 09/30/2016 FINDINGS: Ventricles are normal in size, shape, and position. There is no midline shift or mass effect. There is no hemorrhage or evidence of acute ischemia. No cerebral edema is identified. The bony calvarium, visualized paranasal sinuses and mastoids are clear. IMPRESSION: Negative CT head. Dictated by: Dictated on workstation # [id number]
[2017-06-11 18:25] LABS: AMPHETAMINE SCREEN, URINE POSITIVE (NEGATIVE); BARBITURATE SCREEN URINE NEGATIVE (NEGATIVE); BENZODIAZEPINES SCREEN URINE NEGATIVE (NEGATIVE); CANNABINOID SCREEN, URINE NEGATIVE (NEGATIVE); COCAINE SCREEN URINE NEGATIVE (NEGATIVE); METHADONE STAT NEGATIVE (NEGATIVE); METHAMPHETAMINE SCREEN URINE S NEGATIVE (NEGATIVE); OPIATE SCREEN URINE NEGATIVE (NEGATIVE); OXYCODONE STAT NEGATIVE (NEGATIVE); PROPOXYPHENE STAT NEGATIVE (NEGATIVE); TRICYCLIC ANTIDEPRESSANTS SCRE NEGATIVE (NEGATIVE)
--- NOTE | 2017-06-11 18:59 | Diagnostic Imaging Report ---
INDICATION: Unresponsive COMPARISON: 12/20/2013 FINDINGS: Single view of the chest demonstrates clear lungs bilaterally. The heart is normal. There is no pneumothorax. Osseous structures are normal. IMPRESSION: Negative chest Dictated by: Dictated on workstation # [id number]
[2017-06-11] MEDS ORDERED: RT-ALBUTEROL SULF 2.5 MG/3 ML PRE-MIX VIAL INH PRN (20:30)
[2017-06-11] MEDS ORDERED: LORazepam INJ 2 MG/ML (ATIVAN) VIAL IV PRN (20:45)
[2017-06-11] MEDS: NS IV 1000 ML 1,000 ML IV SCH (23:58)
[2017-06-12] VITALS (10 sets, daily range): BP systolic 104–134; BP diastolic 67–88
[2017-06-12] MEDS: NS IV 1000 ML 1,000 ML IV SCH ×2 (04:45→08:11)
[2017-06-12 04:55] LABS: BASOPHILS % (AUTO) 0 % (0-10); EOSINOPHILS # (AUTO) 0.2 10^3/uL (0.0-0.3); EOSINOPHILS % (AUTO) 4 % (0-10); HEMATOCRIT 41 % (35-52); HEMOGLOBIN 14.2 G/DL (11.5-16.0); LYMPHOCYTES # (AUTO) 1.8 X 10^3 (1.0-4.0); LYMPHOCYTES % (AUTO) 27 % (12-44); MEAN CORPUSCULAR HEMOGLOBIN 31 PG (25-34); MEAN CORPUSCULAR HGB CONC 35 G/DL (32-36); MEAN CORPUSCULAR VOLUME 88 FL (80-99); MEAN PLATELET VOLUME 9.2 FL (7.4-10.4); MONOCYTES # (AUTO) 0.5 X 10^3 (0.0-1.0); MONOCYTES % (AUTO) 8 % (0-12); NEUTROPHILS # (AUTO) 3.9 X 10^3 (1.8-7.8); NEUTROPHILS % (AUTO) 61 % (42-75); PLATELET COUNT 162 10^3/uL (130-400); RED BLOOD COUNT 4.62 10^6/uL (4.35-5.85); RED CELL DISTRIBUTION WIDTH 12.5 % (10.0-14.5); WHITE BLOOD COUNT 6.5 10^3/uL (4.3-11.0)
[2017-06-12 05:11] LABS: BUN/CREATININE RATIO 15; CALCIUM 8.7 MG/DL (8.5-10.1); CARBON DIOXIDE 23 MMOL/L (21-32); CHLORIDE 105 MMOL/L (98-107); CREATININE SERUM 0.73 MG/DL (0.60-1.30); GFR ESTIMATED > 60; GLUCOSE 79 MG/DL (70-105); MAGNESIUM 1.8 MG/DL (1.8-2.4); PHOSPHORUS 3.1 MG/DL (2.3-4.7); POTASSIUM 3.7 MMOL/L (3.6-5.0); SODIUM 138 MMOL/L (135-145)
[2017-06-12] MEDS ORDERED: LEVETIRACETAM 1,000 MG/NS 100 ML IVPB IV SCH ×2 (06:00)
[2017-06-12] MEDS ORDERED: POTASSIUM CL 10MEQ/50ML IVPB 50 ML IV SCH (06:00)
[2017-06-12] MEDS ORDERED: MAGNESIUM 1 GM/100 ML IVPB 100 ML IV SCH (06:00)
[2017-06-12] MEDS ORDERED: KCL 20 MEQ TAB (K-DUR) PO SCH (06:00)
--- NOTE | 2017-06-12 06:16 | Pulmonary Consultation ---
History of Present Illness History of Present Illness Date of Consultation 06/12/17 06:10 Time Seen by Provider: 06:10 Date of Admission History of Present Illness 32yo with hx of colon and cervical cancer who was found unresponsive. Pt had seizure while in the ED and received IV Ativan. Pt was admitted to ICU with Keppra and seizure precautions. No other seizures during the night. Family told ED that she has been having a lot of seizure activity over the last 1-2 days. UDS is positive for Amphetamines. Pt is still sedate from Ativan and I am not currently able to obtain ROS. She does open eyes with heavy stimulation. I am consulted for ICU management. Allergies and Home Medications Allergies Coded Allergies: cefaclor (Verified Allergy, Unknown, 12/19/13) latex (Verified Allergy, Unknown, 12/19/13) peanut (Verified Allergy, Unknown, 12/19/13) strawberry (Verified Allergy, Unknown, 10/28/16) venom-honey bee (Verified Allergy, Unknown, 12/19/13) Home Medications Albuterol Sulfate 1 Puff Puff, 2 PUFF IH Q4H, (Reported) 1 PUFF = 90 MCG Ciprofloxacin HCl 500 Mg Tablet, 500 MG PO BID, #20 Prescribed by: TRENA HILLS on 04/15/17 0607 Hydrocodone Bit/Acetaminophen 1 Each Tablet, 1 EACH PO Q4H, #12 Prescribed by: TRENA HILLS on 04/15/17 0607 Lactobacillus Acidophilus 1 Each Capsule, 2 EACH PO QID, #80 Prescribed by: TRENA HILLS on 04/15/17 0607 Levetiracetam 1,000 Mg Tablet, 2 EACH PO BID, #120 Ref 0 Prescribed by: MARLEN HARRY on 12/19/14 1549 Metronidazole 500 Mg Tablet, 500 MG PO QID, #40 Prescribed by: TRENA HILLS on 04/15/17 0607 Topiramate 200 Mg Tablet, 200 MG PO, (Reported) [Flovent] , (Reported) Past Tkatgpt-Isslie-Mimuec Hx Patient Social History Alcohol Use: Denies Use Recreational Drug Use: No Smoking Status: Unknown if Ever Smoked 2nd Hand Smoke Exposure: No Recent Foreign Travel: No Contact w/Someone Who Travel: No Recent Infectious Disease Expo: No Recent Hopitalizations: No Immunizations Up To Date Tetanus Booster (TDap): More than 5yrs Date of Pneumonia Vaccine: Jun 14, 2011 Seasonal Allergies Seasonal Allergies: No Surgeries History of Surgeries: Yes Surgeries: Abdominal, Appendectomy, Bowel Surgery, Breast, Orthopedic Respiratory History of Respiratory Disorde: Yes ("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") Respiratory Disorders: Asthma Currently Using CPAP: No Currently Using BIPAP: No Cardiovascular History of Cardiac Disorders: No Neurological History of Neurological Disord: Yes Neurological Disorders: Seizure Disorder Reproductive System : No Hx Reproductive Disorders: Yes (CHRONIC PID, CHRONIC PELVIC PAIN; CERVICAL DYSPLASIA-S/P CRYO OF CERVIX X 2) Sexually Transmitted Disease: No Female Reproductive Disorders: Pelvic Inflammatory Dis, Ovarian Cyst Genitourinary History of Genitourinary Disor: No Gastrointestinal History of Gastrointestinal Di: No Musculoskeletal History of Musculoskeletal Dis: No Endocrine History of Endocrine Disorders: No HEENT History of HEENT Disorders: Yes ("VOCAL CORD DYSFUNCTION" SELF REPORTED) Cancer History of Cancer: Yes Cancer: Breast, Cervical, Colon Psychosocial History of Psychiatric Problem: No Integumentary History of Skin or Integumenta: No Blood Transfusions History of Blood Disorders: No Reviewed Nursing Assessment Reviewed/Agree w Nursing PMH: Yes Family Medical History Significant Family History: No Pertinent Family Hx Family Medial History: Patient reports no known family medical history. Review of Systems Time Seen by Provider: 06:21 Exam Exam Vital Signs Date Time Temp Pulse Resp B/P (MAP) Pulse Ox O2 Delivery O2 Flow Rate FiO2 06/12/17 05:00 73 20 130/83 (99) 98 Room Air 06/12/17 04:00 Room Air 06/12/17 04:00 99.1 71 14 117/81 (93) 96 Room Air 06/12/17 03:00 67 15 120/78 (92) 96 Room Air 06/12/17 02:00 55 24 134/88 (103) 97 Room Air 06/12/17 01:00 70 06/12/17 01:00 70 18 104/75 (85) 97 Room Air 06/12/17 00:00 97 Room Air 06/12/17 00:00 98.7 79 10 118/73 (88) 97 Room Air 06/11/17 23:00 72 16 111/74 (86) 97 Room Air 06/11/17 22:00 66 10 111/74 (86) 98 Room Air 06/11/17 21:45 76 15 115/78 (90) 96 Room Air 06/11/17 21:30 69 16 121/75 (90) 98 Room Air 06/11/17 21:15 80 16 117/89 (98) 97 Room Air 06/11/17 21:00 75 15 112/82 (92) 96 Room Air 06/11/17 20:45 74 16 112/78 (89) 97 Room Air 06/11/17 20:30 73 17 115/87 (96) 97 Room Air 06/11/17 20:15 77 23 118/84 (95) 97 Room Air 06/11/17 20:10 64 97 06/11/17 20:00 73 17 117/85 (96) 97 Room Air 06/11/17 19:45 69 15 116/82 (93) 95 Room Air 06/11/17 19:36 73 06/11/17 19:35 98.5 80 16 121/79 (93) 97 Room Air 06/11/17 19:35 96 Room Air 06/11/17 19:20 98.0 71 16 97 Room Air 06/11/17 18:42 77 16 118/79 (92) 97 Room Air 06/11/17 17:14 98.0 88 16 136/90 (105) Room Air I & O 06/12/17 07:00 Intake Total 1090 ml Output Total 550 ml Balance 540 ml General Appearance: No Apparent Distress, WD/WN HEENT: PERRL/EOMI, Pharynx Normal Neck: Non Tender, Supple Respiratory: Chest Non Tender, Lungs Clear, No Accessory Muscle Use, No Respiratory Distress Cardiovascular: Regular Rate, Rhythm, No Edema Capillary Refill: Less Than 3 Seconds Gastrointestinal: non tender, soft Extremity: Normal Capillary Refill Neurologic/Psychiatric: Alert, Oriented x3 Skin: Normal Color, Warm/Dry Lymphatic: No Adenopathy Results Lab Laboratory Tests 06/11/17 17:15 06/12/17 04:31 Assessment/Plan Assessment/Plan Acute seizures s/p syncope -Continue Keppra -PRN ATIVAN for seizures only -Seizure precautions - Negative head CT and CXR +UDS for Amphetamines -unable to obtain hx currentlly Pt is doing better no further seizure activity. Will transfer to floor with telemetry and neuro checks. I am going to sign off please call with any questions. 255 Clinical Quality Measures DVT/VTE Risk/Contraindication: Risk Factor Score Per Nursin RFS Level Per Nursing on Admit: 2=Moderate FRITZ BOWER DO Jun 12, 2017 06:15
[2017-06-12] MEDS: RT-ALBUTEROL SULF 2.5 MG/3 ML PRE-MIX VIAL INH SCH ×4 (07:12→19:20)
[2017-06-12] MEDS ORDERED: LEVE500T6 PO (09:51)
--- NOTE | 2017-06-12 11:31 | Diagnostic Imaging Report ---
EXAM: Portable erect AP chest at 5:26 a.m. INDICATION: Seizures FINDINGS: The heart size is within normal limits and the heart does seem less prominent than noted on the prior exam of 06/11/2017. The lungs are clear. There is no evidence for failure, pneumonia or for a pleural effusion. The crowded bronchovascular markings in the right infrahilar region seen previously, are less conspicuous on this exam. The mediastinum is not widened. The osseous structures are intact. IMPRESSION: There is no evidence for an acute cardiopulmonary abnormality. Dictated by: Dictated on workstation # [id number]
--- NOTE | 2017-06-12 12:21 | Short Stay Summary-Hospitalist ---
HPI History of Present Illness: HPI/Chief Complaint CC: Status Epilepticus HPI: This is a 32-year-old white female with known history of seizure disorder who has neurology care in [place] in no local physician the presents to the emergency room in status epilepticus. UDS showed amphetamines and it appears that she was not taking her medication properly per her father. 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 At this current time patient is drowsy does not feel like talking to me so no other details are obtained. I spoke with her nurse and we will discontinue catheter and advance her diet to regular and started on by mouth Keppra and plan on discharging her later this afternoon. Source: patient Exam Limitations: clinical condition Date Seen 06/12/17 Time Seen by Provider: 12:00 Attending Physician Melissa Fisher DO PCP No,Local Physician Referring Physician Date of Admission Jun 11, 2017 at 19:08 Home Medications & Allergies Home Medications Reviewed patient Home Medication Reconciliation Form Allergies Allergies Coded Allergies cefaclor (Verified Allergy, Unknown, 12/19/13) latex (Verified Allergy, Unknown, 12/19/13) peanut (Verified Allergy, Unknown, 12/19/13) strawberry (Verified Allergy, Unknown, 10/28/16) venom-honey bee (Verified Allergy, Unknown, 12/19/13) Past Fcwxhbd-Rvjjni-Nxkdmh Hx Patient Social History Employed/Student: employed ([employer]) Alcohol Use: Denies Use Recreational Drug Use: No Smoking Status: Unknown if Ever Smoked 2nd Hand Smoke Exposure: No Physical Abuse Screen: No Sexual Abuse: No Recent Foreign Travel: No Contact w/other who traveled: No Recent Hopitalizations: No Recent Infectious Disease Expo: No Immunizations Up To Date Tetanus Booster (TDap): More than 5yrs Date of Pneumonia Vaccine: Jun 14, 2011 Date of Influenza Vaccine: Mar 13, 2017 Seasonal Allergies Seasonal Allergies: No Surgeries Yes Abdominal, Appendectomy, Bowel Surgery, Breast, Orthopedic Respiratory Yes ("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") Currently Using CPAP: No Currently Using BIPAP: No Cardiovascular No Neurological Yes Seizure Disorder Reproductive System : No Hx Reproductive Disorders: Yes (CHRONIC PID, CHRONIC PELVIC PAIN; CERVICAL DYSPLASIA-S/P CRYO OF CERVIX X 2) Sexually Transmitted Disease: No Female Reproductive Disorders: Pelvic Inflammatory Dis, Ovarian Cyst Genitourinary No Gastrointestinal No Musculoskeletal No Endocrine History of Endocrine Disorders: No HEENT History of HEENT Disorders: Yes ("VOCAL CORD DYSFUNCTION" SELF REPORTED) Cancer Yes Breast, Cervical, Colon Psychosocial History of Psychiatric Problem: No Integumentary History of Skin or Integumenta: No Blood Transfusions History of Blood Disorders: No Reviewed Nursing Assessment Reviewed/Agree w Nursing PMH: Yes Family Medical History Significant Family History: No Pertinent Family Hx Family Hx: Patient reports no known family medical history. Review of Systems ROS-Unable to Obtain: drowsy, won't answer my questions Constitutional: see HPI Physical Exam Physical Exam Vital Signs Vital Sign - Last 12Hours 06/11/17 06/11/17 17:14 18:42 Temp 98.0 Pulse 88 Resp 16 B/P (MAP) 136/90 (105) Pulse Ox 97 O2 Delivery Room Air Capillary Refill : Less Than 3 Seconds General Appearance: No Apparent Distress, WD/WN, Chronically ill, Obese Eyes: Bilateral Eye Normal Inspection, Bilateral Eye PERRL Neck: Normal Inspection, Supple Respiratory: Chest Non Tender, Lungs Clear, Normal Breath Sounds, No Accessory Muscle Use, No Respiratory Distress Cardiovascular: Regular Rate, Rhythm, No Edema, No Gallop, No JVD, No Murmur, Normal Peripheral Pulses Gastrointestinal: Normal Bowel Sounds, No Organomegaly, No Pulsatile Mass, Soft Extremity: Normal Capillary Refill, Normal Inspection, Normal Range of Motion, No Pedal Edema Neurologic/Psychiatric: Alert, Depressed Affect Skin: Normal Color, Warm/Dry Lymphatic: No Adenopathy Results Results/Procedures Lab Laboratory Tests 06/11/17 17:15 06/12/17 04:31 Short Stay Diagnosis Discharge Diagnosis-Short Stay Admission Diagnosis Assessment: Status epilepticus requiring ICU admission with IV Keppra Medication noncompliance Amphetamines in urine drug screen Final Discharge Diagnosis Assessment: Status epilepticus requiring ICU admission with IV Keppra Medication noncompliance Amphetamines in urine drug screen Conclusion Plan Plan: Discontinue catheter Start Keppra pills Resume Topamax Sent prescriptions into [facility] Clinical Quality Measures DVT/VTE Risk/Contraindication: Risk Factor Score Per Nursin RFS Level Per Nursing on Admit: 2=Moderate MEILSSA FISHER DO Jun 12, 2017 12:20
[2017-06-12] MEDS ORDERED: LEVE500T99 PO (12:22)
[2017-06-12] MEDS ORDERED: TOPI200T25 PO (12:22)
[2017-06-12] MEDS ORDERED: toPIRamate 100 MG (TOPAMAX) TAB PO SCH (21:00)
[2017-06-12] MEDS ORDERED: LEVETIRACETAM 500 MG (KEPPRA) TAB PO SCH (21:00)
== END 2017-06-12 12:22 | disposition home or self-care (01) ==
LOC: EDUNIT# 17:14 → ER 17:15 → ICU 19:08 → UNDOADMOB 19:08 → ICU 19:30 → 4TH 06-12 07:01 → ICU 06-12 07:01 → UNDODISOB 06-12 19:40
PROVIDERS: ADMIT Internal Medicine; ATTEND Internal Medicine
DX: G40.901 Epilepsy, unspecified, not intractable, with status epilepticus (principal); Z91.14 Patient's other noncompliance with medication regimen; J45.909 Unspecified asthma, uncomplicated; F15.90 Other stimulant use, unspecified, uncomplicated; E66.9 Obesity, unspecified; N73.1 Chronic parametritis and pelvic cellulitis; Z68.32 Body mass index [BMI] 32.0-32.9, adult; Z79.899 Other long term (current) drug therapy; Z85.41 Personal history of malignant neoplasm of cervix uteri; Z85.3 Personal history of malignant neoplasm of breast; Z85.038 Personal history of other malignant neoplasm of large intestine
CPT/HCPCS: 36415; 70450; 71010; 80048; 80053; 80306; 81000; 82962; 83735; 84100; 84443; 85025; 87081; 94640; 94760; G0378

== ENCOUNTER 2017-06-26 15:24 | Emergency (ER) | payer MEDICAID ==
[~2017-06-26] VITALS: Ht 177.8 cm; Wt 92.5 kg
[~2017-06-26 15:24] MED LIST changes: +LEVE500T99 PO
[2017-06-26 16:30] LABS: BASOPHILS % (AUTO) 0 % (0-10); EOSINOPHILS # (AUTO) 0.1 10^3/uL (0.0-0.3); EOSINOPHILS % (AUTO) 2 % (0-10); HEMATOCRIT 41 % (35-52); HEMOGLOBIN 14.6 G/DL (11.5-16.0); LYMPHOCYTES # (AUTO) 1.6 X 10^3 (1.0-4.0); LYMPHOCYTES % (AUTO) 24 % (12-44); MEAN CORPUSCULAR HEMOGLOBIN 31 PG (25-34); MEAN CORPUSCULAR HGB CONC 36 G/DL (32-36); MEAN CORPUSCULAR VOLUME 87 FL (80-99); MEAN PLATELET VOLUME 10.4 FL (7.4-10.4); MONOCYTES # (AUTO) 0.5 X 10^3 (0.0-1.0); MONOCYTES % (AUTO) 8 % (0-12); NEUTROPHILS # (AUTO) 4.4 X 10^3 (1.8-7.8); NEUTROPHILS % (AUTO) 66 % (42-75); PLATELET COUNT 180 10^3/uL (130-400); RED BLOOD COUNT 4.66 10^6/uL (4.35-5.85); RED CELL DISTRIBUTION WIDTH 12.8 % (10.0-14.5); WHITE BLOOD COUNT 6.7 10^3/uL (4.3-11.0)
[2017-06-26 16:38] LABS: INR 1.1 (0.8-1.4)
[2017-06-26 16:45] LABS: ALANINE AMINOTRANSFERASE 44 U/L (0-55); ALBUMIN 4.1 GM/DL (3.2-4.5); ALKALINE PHOSPHATASE 54 U/L (40-136); BILIRUBIN,TOTAL 0.4 MG/DL (0.1-1.0); BUN/CREATININE RATIO 14; CALCIUM 9.1 MG/DL (8.5-10.1); CARBON DIOXIDE 20 MMOL/L (21-32); CHLORIDE 110 MMOL/L (98-107); CREATININE SERUM 1.07 MG/DL (0.60-1.30); GFR ESTIMATED 59; GLUCOSE 103 MG/DL (70-105); POTASSIUM 3.6 MMOL/L (3.6-5.0); SALICYLATE < 5.0 MG/DL (5.0-20.0); SODIUM 138 MMOL/L (135-145); TOTAL PROTEIN 7.2 GM/DL (6.4-8.2)
[2017-06-26 16:58] LABS: ACETAMINOPHEN < 10 UG/ML (10-30)
[2017-06-26 17:02] LABS: BILIRUBIN,URINE NEGATIVE (NEGATIVE); CLARITY,URINE CLEAR; COLOR,URINE YELLOW; GLUCOSE, URINE (UA) NEGATIVE (NEGATIVE); KETONES,URINE NEGATIVE (NEGATIVE); LEUKOCYTE ESTERASE ,URINE NEGATIVE (NEGATIVE); NITRITE,URINE NEGATIVE (NEGATIVE); PH,URINE 7 (5-9); PROTEIN,URINE NEGATIVE (NEGATIVE); UROBILINOGEN,URINE NORMAL (NORMAL)
[2017-06-26 17:05] LABS: TSH (THYROID ANALYZER) 1.34 UIU/ML (0.35-4.94)
[2017-06-26] MEDS ORDERED: NS IV 1000 ML 1,000 ML ONE (17:07)
[2017-06-26] MEDS ORDERED: NS IV 1000 ML 1,000 ML IV ONE (17:07)
[2017-06-26] MEDS ORDERED: ONDANSETRON 4 MG/2 ML (SDV) Z0FRAN ONE ×2 (17:07→20:48)
[2017-06-26 17:10] LABS: BACTERIA,URINE TRACE /HPF
[2017-06-26] MEDS ORDERED: ONDANSETRON 4 MG/2 ML (SDV) Z0FRAN IVP ONE ×2 (17:15→21:00)
[2017-06-26 17:18] LABS: AMPHETAMINE SCREEN, URINE NEGATIVE (NEGATIVE); BARBITURATE SCREEN URINE NEGATIVE (NEGATIVE); BENZODIAZEPINES SCREEN URINE NEGATIVE (NEGATIVE); CANNABINOID SCREEN, URINE NEGATIVE (NEGATIVE); COCAINE SCREEN URINE NEGATIVE (NEGATIVE); METHADONE STAT NEGATIVE (NEGATIVE); METHAMPHETAMINE SCREEN URINE S NEGATIVE (NEGATIVE); OPIATE SCREEN URINE NEGATIVE (NEGATIVE); OXYCODONE STAT NEGATIVE (NEGATIVE); PROPOXYPHENE STAT NEGATIVE (NEGATIVE); TRICYCLIC ANTIDEPRESSANTS SCRE NEGATIVE (NEGATIVE)
--- NOTE | 2017-06-26 18:40 | ED Neurological Problem ---
General Chief Complaint: General Problems/Pain Stated Complaint: UNRESPONSIVE Nursing Triage Note: EMS advise that the patient was found unresponsive at home. The patient advises she has been experiencing severe abdominal pain as well as her head feeling "different". Nursing Sepsis Screen: No Definite Risk Source: patient, family Exam Limitations: no limitations History of Present Illness Time seen by provider: 18:40 Initial Comments 32-year-old female patient presents to the emergency department via [facility] with reports of being unresponsive and sound in the bathroom at [facility] walk-in clinic. Patient reportedly was brought to [facility] by her father and left in the waiting room. Patient reports not feeling well for several days and tested positive earlier this week for influenza while at work at [employer] in [place], [place] Allergies and Home Medications Allergies Coded Allergies: cefaclor (Verified Allergy, Unknown, 12/19/13) latex (Verified Allergy, Unknown, 12/19/13) peanut (Verified Allergy, Unknown, 12/19/13) strawberry (Verified Allergy, Unknown, 10/28/16) venom-honey bee (Verified Allergy, Unknown, 12/19/13) Home Medications Levetiracetam 500 Mg Tablet, 500 MG PO BID, #60 Prescribed by: OLIVER MANSFIELD on 06/12/17 1222 Topiramate 200 Mg Tablet, 200 MG PO BID, (Reported) Topiramate 200 Mg Tablet, 200 MG PO BID, #60 Prescribed by: OLIVER MANSFIELD on 06/12/17 1222 Past Welgeia-Qufsup-Pipcqd Hx Patient Social History Alcohol Use: Denies Use Recreational Drug Use: No Smoking Status: Never a Smoker 2nd Hand Smoke Exposure: No Recent Foreign Travel: No Contact w/Someone Who Travel: No Recent Infectious Disease Expo: No Recent Hopitalizations: Yes Physical Abuse: No Sexual Abuse: No Immunizations Up To Date Tetanus Booster (TDap): More than 5yrs Date of Pneumonia Vaccine: Jun 14, 2011 Date of Influenza Vaccine: Mar 13, 2017 Seasonal Allergies Seasonal Allergies: No Surgeries History of Surgeries: Yes Surgeries: Abdominal, Appendectomy, Bowel Surgery, Breast, Orthopedic Respiratory History of Respiratory Disorde: Yes ("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") Respiratory Disorders: Asthma Currently Using CPAP: No Currently Using BIPAP: No Cardiovascular History of Cardiac Disorders: No Neurological History of Neurological Disord: Yes Neurological Disorders: Seizure Disorder Reproductive System Hx Reproductive Disorders: Yes (CHRONIC PID, CHRONIC PELVIC PAIN; CERVICAL DYSPLASIA-S/P CRYO OF CERVIX X 2) Sexually Transmitted Disease: No Female Reproductive Disorders: Pelvic Inflammatory Dis, Ovarian Cyst Genitourinary History of Genitourinary Disor: No Gastrointestinal History of Gastrointestinal Di: No Musculoskeletal History of Musculoskeletal Dis: No Endocrine History of Endocrine Disorders: No HEENT History of HEENT Disorders: Yes ("VOCAL CORD DYSFUNCTION" SELF REPORTED) Cancer History of Cancer: Yes Cancer: Breast, Cervical, Colon Psychosocial History of Psychiatric Problem: No Suicide Risk Score: 0 Integumentary History of Skin or Integumenta: No Blood Transfusions History of Blood Disorders: No Family Medical History Significant Family History: No Pertinent Family Hx Family Medial History: Patient reports no known family medical history. Physical Exam Vital Signs Vital Sign - Last 12Hours 06/26/17 15:27 Temp 98.6 Pulse 82 Resp 14 B/P (MAP) 138/93 (108) Pulse Ox 98 O2 Delivery Room Air Capillary Refill : Less Than 3 Seconds Progress/Results/Core Measures Results/Orders Lab Results Laboratory Tests Test 06/26/17 15:30 06/26/17 16:55 06/26/17 19:45 Range/Units White Blood Count 6.7 4.3-11.0 10^3/uL Red Blood Count 4.66 4.35-5.85 10^6/uL Hemoglobin 14.6 11.5-16.0 G/DL Hematocrit 41 35-52 % Mean Corpuscular Volume 87 80-99 FL Mean Corpuscular Hemoglobin 31 25-34 PG Mean Corpuscular Hemoglobin Concent 36 32-36 G/DL Red Cell Distribution Width 12.8 10.0-14.5 % Platelet Count 180 130-400 10^3/uL Mean Platelet Volume 10.4 7.4-10.4 FL Neutrophils (%) (Auto) 66 42-75 % Lymphocytes (%) (Auto) 24 12-44 % Monocytes (%) (Auto) 8 0-12 % Eosinophils (%) (Auto) 2 0-10 % Basophils (%) (Auto) 0 0-10 % Neutrophils # (Auto) 4.4 1.8-7.8 X 10^3 Lymphocytes # (Auto) 1.6 1.0-4.0 X 10^3 Monocytes # (Auto) 0.5 0.0-1.0 X 10^3 Eosinophils # (Auto) 0.1 0.0-0.3 10^3/uL Basophils # (Auto) 0.0 0.0-0.1 10^3/uL Prothrombin Time 14.0 12.2-14.7 SEC INR Comment 1.1 0.8-1.4 Activated Partial Thromboplast Time 29 24-35 SEC Sodium Level 138 135-145 MMOL/L Potassium Level 3.6 3.6-5.0 MMOL/L Chloride Level 110 H 98-107 MMOL/L Carbon Dioxide Level 20 L 21-32 MMOL/L Anion Gap 8 5-14 MMOL/L Blood Urea Nitrogen 15 7-18 MG/DL Creatinine 1.07 0.60-1.30 MG/DL Estimat Glomerular Filtration Rate 59 BUN/Creatinine Ratio 14 Glucose Level 103 70-105 MG/DL Calcium Level 9.1 8.5-10.1 MG/DL Total Bilirubin 0.4 0.1-1.0 MG/DL Aspartate Amino Transf (AST/SGOT) 20 5-34 U/L Alanine Aminotransferase (ALT/SGPT) 44 0-55 U/L Alkaline Phosphatase 54 40-136 U/L Troponin I < 0.30 <0.30 NG/ML C-Reactive Protein High Sensitivity 0.02 0.00-0.50 MG/DL Total Protein 7.2 6.4-8.2 GM/DL Albumin 4.1 3.2-4.5 GM/DL TSH [place] Testing 1.34 0.35-4.94 UIU/ML Salicylates Level < 5.0 L 5.0-20.0 MG/DL Acetaminophen Level < 10 L 10-30 UG/ML Serum Alcohol < 10 <10 MG/DL Urine Color YELLOW Urine Clarity CLEAR Urine pH 7 5-9 Urine Specific [place] 1.010 L 1.016-1.022 Urine Protein NEGATIVE NEGATIVE Urine Glucose (UA) NEGATIVE NEGATIVE Urine Ketones NEGATIVE NEGATIVE Urine Nitrite NEGATIVE NEGATIVE Urine Bilirubin NEGATIVE NEGATIVE Urine Urobilinogen NORMAL NORMAL MG/DL Urine Leukocyte Esterase NEGATIVE NEGATIVE Urine RBC (Auto) NEGATIVE NEGATIVE Urine RBC NONE /HPF Urine WBC NONE /HPF Urine Squamous Epithelial Cells 2-5 /HPF Urine Crystals NONE /LPF Urine Bacteria TRACE /HPF Urine Casts NONE /LPF Urine Mucus NEGATIVE /LPF Urine Culture Indicated NO Urine Opiates Screen NEGATIVE NEGATIVE Urine Oxycodone Screen NEGATIVE NEGATIVE Urine Methadone Screen NEGATIVE NEGATIVE Urine Propoxyphene Screen NEGATIVE NEGATIVE Urine Barbiturates Screen NEGATIVE NEGATIVE Ur Tricyclic Antidepressants Screen NEGATIVE NEGATIVE Urine Phencyclidine Screen NEGATIVE NEGATIVE Urine Amphetamines Screen NEGATIVE NEGATIVE Urine Methamphetamines Screen NEGATIVE NEGATIVE Urine Benzodiazepines Screen NEGATIVE NEGATIVE Urine Cocaine Screen NEGATIVE NEGATIVE Urine Cannabinoids Screen NEGATIVE NEGATIVE Glucometer 75 70-110 MG/DL My Orders Orders - LEVAR RUIZ Acetaminophen (06/26/17 16:22) Alcohol (06/26/17 16:22) Cbc With Automated Diff (06/26/17 16:22) Comprehensive Metabolic Panel (06/26/17 16:22) Hs C Reactive Protein (06/26/17 16:22) Drug Screen Stat (Urine) (06/26/17 16:22) Lactic Acid Analyzer (06/26/17 16:22) Protime With Inr (06/26/17 16:22) Partial Thromboplastin Time (06/26/17 16:22) Salicylate (06/26/17 16:22) Thyroid Analyzer (06/26/17 16:22) Troponin I (06/26/17 16:22) Ua Culture If Indicated (06/26/17 16:22) Accucheck Stat ONCE (06/26/17 16:22) Saline Lock/Iv-Start (06/26/17 16:22) Ekg Tracing (06/26/17 16:22) Ns Iv 1000 Ml (Sodium Chloride 0.9%) (06/26/17 17:07) Ondansetron Injection (Zofran Injectio (06/26/17 17:15) Ct Head Wo (06/26/17 19:03) Lorazepam Injection (Ativan Injection) (06/26/17 19:15) Levetiracetam Injection (Keppra Injectio (06/26/17 21:00) Levetiracetam Injection (Keppra Injectio (06/26/17 21:00) Topiramate Tablet (Topamax Tablet) (06/26/17 19:15) Accucheck Stat ONCE (06/26/17 19:03) D50w (Emergency) Syringe (Dextrose 50% 5 (06/26/17 20:00) Ketorolac Injection (Toradol Injection) (06/26/17 20:24) Ondansetron Injection (Zofran Injectio (06/26/17 21:00) Ondansetron Injection (Zofran Injectio (06/26/17 20:48) Medications Given in ED Current Medications Medications Dose Ordered Sig/Sourav Route Start Time Stop Time Status Last Admin Dose Admin Dextrose 50 ml ONCE ONCE IV 06/26/17 20:00 06/26/17 20:01 DC 06/26/17 19:57 50 ML Lorazepam 1 mg ONCE ONCE IVP 06/26/17 19:15 06/26/17 19:16 DC 06/26/17 19:36 1 MG Ondansetron HCl 4 mg ONCE ONCE IVP 06/26/17 17:15 06/26/17 17:16 DC 06/26/17 17:42 4 MG Ondansetron HCl 4 mg ONCE ONCE IVP 06/26/17 21:00 06/26/17 21:01 DC 06/26/17 20:53 4 MG Sodium Chloride 1,000 ml @ 0 mls/hr Q0M ONCE IV 06/26/17 17:07 06/26/17 17:09 DC 06/26/17 17:42 0 MLS/HR Topiramate 200 mg ONCE ONCE PO 06/26/17 19:15 06/26/17 19:16 DC 06/26/17 19:42 200 MG Vital Signs/I&O Vital Sign - Last 12Hours 06/26/17 15:27 Temp 98.6 Pulse 82 Resp 14 B/P (MAP) 138/93 (108) Pulse Ox 98 O2 Delivery Room Air Blood Pressure Mean: 108 Diagnostic Imaging Diagonstic Imaging: CT Plain Films/CT/US/NM/MRI: head Comments CT HEAD WO INDICATION: Patient found unresponsive. EXAMINATION: Noncontrast brain CT was performed. COMPARISON: 06/11/2017. FINDINGS: There are no extra- axial fluid collections. No intracranial hemorrhage. No intracranial mass or mass effect. No midline shift. The ventricles are normal in size and position. There are no focal parenchymal abnormalities in the brain. Calvarial windows are unremarkable. IMPRESSION: Negative noncontrast brain CT. No change compared with 06/11/2017. Dictated on workstation # [id number] Reviewed: Reviewed by Me (radiology report reviewed by me) Departure Impression Impression: Primary Impression: Acute headache Additional Impression: Seizure disorder Disposition: 01 HOME, SELF-CARE Condition: Improved Departure-Patient Inst. Decision time for Depature: 21:20 Referrals: NO,LOCAL PHYSICIAN (PCP/Family) Primary Care Physician Patient Instructions: Seizures, Adult (DC) Add. Discharge Instructions: All discharge instructions reviewed with patient and/or family. Voiced understanding. Continue usual home medications as instructed by your prescribing physicians. Follow-up with your primary care provider of choice to establish care and for recheck. Follow-up with your neurologist and psychiatrist/psychologist as an outpatient for recheck this week. Call for appointment time. Return to the emergency department for worsened symptoms or any other concerns. Work/School Note: Local Medical Staff Listing, Work Release Form Date Seen in the Emergency Department: Jun 26, 2017 Return to Work: Jun 28, 2017 LEVAR RUIZ Jun 26, 2017 18:40
[2017-06-26] MEDS ORDERED: toPIRamate 100 MG (TOPAMAX) TAB PO ONE (19:15)
[2017-06-26] MEDS ORDERED: LORazepam INJ 2 MG/ML (ATIVAN) VIAL IVP ONE (19:15)
--- NOTE | 2017-06-26 19:38 | Diagnostic Imaging Report ---
INDICATION: Patient found unresponsive. EXAMINATION: Noncontrast brain CT was performed. COMPARISON: 06/11/2017. FINDINGS: There are no extra-axial fluid collections. No intracranial hemorrhage. No intracranial mass or mass effect. No midline shift. The ventricles are normal in size and position. There are no focal parenchymal abnormalities in the brain. Calvarial windows are unremarkable. IMPRESSION: Negative noncontrast brain CT. No change compared with 06/11/2017. Dictated by: Dictated on workstation # [id number]
[2017-06-26] MEDS ORDERED: DEXTROSE 50% 50 ML (IMS) SYR IV ONE (20:00)
[2017-06-26] MEDS ORDERED: KETOROLAC 30 MG/ML VIAL IVP STA (20:24)
[2017-06-26] MEDS ORDERED: LEVETIRACETAM INJECTION 1,000 MG in NS (IVPB) 100 ML IV SCH (21:00)
[2017-06-26] MEDS ORDERED: LEVETIRACETAM INJECTION 500 MG in NS (IVPB) 50 ML IV SCH (21:00)
[2017-06-26 22:20] VITALS: BP 110/76
== END 2017-06-26 22:20 | disposition home or self-care (01) ==
LOC: EDUNIT# 15:24 → ER 15:25
DX: R51 Headache (principal); G40.909 Epilepsy, unspecified, not intractable, without status epilepticus; J45.909 Unspecified asthma, uncomplicated; Z85.038 Personal history of other malignant neoplasm of large intestine; Z85.41 Personal history of malignant neoplasm of cervix uteri; Z87.448 Personal history of other diseases of urinary system; Z85.3 Personal history of malignant neoplasm of breast; Z90.49 Acquired absence of other specified parts of digestive tract
CPT/HCPCS: 36415; 70450; 80053; 80306; 80320; 80329; 81000; 82962; 84443; 84484; 85025; 85610; 85730; 86141; 93005

== ENCOUNTER 2017-06-28 02:40 | Emergency (ER) | payer MEDICAID ==
[~2017-06-28] VITALS: Ht 177.8 cm; Wt 92.7 kg
[2017-06-28] MEDS ORDERED: LACTATED RINGERS 1,000 ML IV ONE (02:52)
[2017-06-28] MEDS ORDERED: NS IV 1000 ML 1,000 ML IV ONE (03:39)
[2017-06-28] MEDS ORDERED: ONDANSETRON 4 MG/2 ML (SDV) Z0FRAN IVP ONE (03:45)
--- NOTE | 2017-06-28 03:51 | ED Neurological Problem ---
General Chief Complaint: Neurological Problems Stated Complaint: ILLNESS Nursing Triage Note: PT BROUGHT IN BY [facility] EMS WITH C/O SEIZURE LIKE ACTIVITY LASTING 1 HOUR. UPON ARRIVAL TO ED PT IS A&O X4. SHE IS C/O GOETZ AT THIS TIME. Nursing Sepsis Screen: No Definite Risk Source: patient, family, EMS Exam Limitations: no limitations History of Present Illness Time seen by provider: 02:42 Initial Comments This 32-year-old woman presents to the emergency room via EMS after having seizure-like activity at home. She has known seizure disorder for which she is treated. She has been ill with influenza recently. She got up this evening to go to the restroom where she vomited. She then fell down on the way back from the bathroom because she was lightheaded. She states she could not get up and could not yell for help so she text at her boyfriend. The boyfriend and called her parents who were in the home. Her father came into the room to check on her and found her convulsing. He reports she convulsed intermittently for about 20 minutes. Patient said that she had headache preceding the seizure- like activity. She has some erythema on the right side of her face where she believes she struck her face. She reports still feeling a little nauseous now. EMS reported witnessing some seizure-like activity. However, they question the authenticity as patient seemed to be able to hold her arm still for IV start during one of the seizures. Patient was seen in the emergency room last night for headache and seizure and had a thorough workup. Chart was reviewed. Allergies and Home Medications Allergies Coded Allergies: cefaclor (Verified Allergy, Unknown, 12/19/13) latex (Verified Allergy, Unknown, 12/19/13) peanut (Verified Allergy, Unknown, 12/19/13) strawberry (Verified Allergy, Unknown, 10/28/16) venom-honey bee (Verified Allergy, Unknown, 12/19/13) Home Medications Levetiracetam 500 Mg Tablet, 500 MG PO BID, #60 Prescribed by: OLIVER MANSFIELD on 06/12/17 1222 Ondansetron 4 Mg Tab.rapdis, 4 MG SL Q4H PRN for NAUSEA/VOMITING-1ST LINE, #10 Prescribed by: RAMON CHURCH on 06/28/17 0424 Topiramate 200 Mg Tablet, 200 MG PO BID, (Reported) Topiramate 200 Mg Tablet, 200 MG PO BID, #60 Prescribed by: OLIVER MANSFIELD on 06/12/17 1222 Constitutional: see HPI Eyes: No Symptoms Reported Ears, Nose, Mouth, Throat: no symptoms reported Respiratory: see HPI Cardiovascular: no symptoms reported Gastrointestinal: no symptoms reported Genitourinary: no symptoms reported Musculoskeletal: see HPI Skin: see HPI Psychiatric/Neurological: No Symptoms Reported Endocrine: No Symptoms Reported Hematologic/Lymphatic: No Symptoms Reported Past Emxovst-Dleane-Ltgwmq Hx Patient Social History Alcohol Use: Denies Use Recreational Drug Use: No Smoking Status: Never a Smoker 2nd Hand Smoke Exposure: No Recent Foreign Travel: No Contact w/Someone Who Travel: No Recent Infectious Disease Expo: No Recent Hopitalizations: No Immunizations Up To Date Tetanus Booster (TDap): More than 5yrs Date of Pneumonia Vaccine: Jun 14, 2011 Date of Influenza Vaccine: Mar 13, 2017 Seasonal Allergies Seasonal Allergies: No Surgeries History of Surgeries: Yes Surgeries: Abdominal, Appendectomy, Bowel Surgery, Breast, Orthopedic Respiratory History of Respiratory Disorde: Yes ("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") Respiratory Disorders: Asthma Currently Using CPAP: No Currently Using BIPAP: No Cardiovascular History of Cardiac Disorders: No Neurological History of Neurological Disord: Yes Neurological Disorders: Seizure Disorder Reproductive System Hx Reproductive Disorders: Yes (CHRONIC PID, CHRONIC PELVIC PAIN; CERVICAL DYSPLASIA-S/P CRYO OF CERVIX X 2) Sexually Transmitted Disease: No Female Reproductive Disorders: Pelvic Inflammatory Dis, Ovarian Cyst Genitourinary History of Genitourinary Disor: No Gastrointestinal History of Gastrointestinal Di: No Musculoskeletal History of Musculoskeletal Dis: No Endocrine History of Endocrine Disorders: No HEENT History of HEENT Disorders: Yes ("VOCAL CORD DYSFUNCTION" SELF REPORTED) Cancer History of Cancer: Yes Cancer: Breast, Cervical, Colon Psychosocial History of Psychiatric Problem: No Integumentary History of Skin or Integumenta: No Blood Transfusions History of Blood Disorders: No Family Medical History Significant Family History: No Pertinent Family Hx Family Medial History: Patient reports no known family medical history. Physical Exam Vital Signs Vital Sign - Last 12Hours 06/28/17 02:40 Temp 98.1 Pulse 72 Resp 9 B/P (MAP) 103/74 (84) Pulse Ox 98 O2 Delivery Room Air Capillary Refill : Less Than 3 Seconds General Appearance: WD/WN, no apparent distress HEENT: PERRL/EOMI, TMs normal, pharynx normal, other (mild erythema by the right brow and on the right cheek with mild tenderness) Neck: non-tender, supple, normal inspection Respiratory: lungs clear, normal breath sounds, no respiratory distress, no accessory muscle use Cardiovascular: regular rate, rhythm, no edema, no murmur Gastrointestinal: non tender, soft Extremities: normal inspection, no pedal edema Neurologic/Psychiatric: postdoctoral scholar II-XII nml as tested, no motor/sensory deficits, alert, normal mood/affect, oriented x 3 Crainal Nerves: normal hearing, normal speech, PERRL Motor/Sensory: no motor deficit, no sensory deficit Skin: normal color, warm/dry, other (see above) Progress/Results/Core Measures Results/Orders Lab Results Laboratory Tests Test 06/28/17 02:50 06/28/17 05:42 Range/Units Sodium Level 139 135-145 MMOL/L Potassium Level 3.8 3.6-5.0 MMOL/L Chloride Level 114 H 98-107 MMOL/L Carbon Dioxide Level 15 L 21-32 MMOL/L Anion Gap 10 5-14 MMOL/L Blood Urea Nitrogen 15 7-18 MG/DL Creatinine 0.99 0.60-1.30 MG/DL Estimat Glomerular Filtration Rate > 60 BUN/Creatinine Ratio 15 Glucose Level 96 70-105 MG/DL Calcium Level 8.4 L 8.5-10.1 MG/DL Serum Test, Qualitative NEGATIVE NEGATIVE Glucometer 79 70-110 MG/DL My Orders Orders - RAMON REYES MD Lactated Ringers (Lr 1000 Ml Iv Solution (06/28/17 02:52) Saline Lock/Iv-Start (06/28/17 03:39) Ns Iv 1000 Ml (Sodium Chloride 0.9%) (06/28/17 03:39) Basic Metabolic Panel (06/28/17 03:39) Ondansetron Injection (Zofran Injectio (06/28/17 03:45) Hcg,Qualitative Serum (06/28/17 03:43) Acetaminophen Tablet (Tylenol Tablet) (06/28/17 04:00) Ammonia Inhalation (Ammonia Inhalation) (06/28/17 05:41) Accucheck Stat ONCE (06/28/17 06:18) Medications Given in ED Current Medications Medications Dose Ordered Sig/Sourav Route Start Time Stop Time Status Last Admin Dose Admin Acetaminophen 1,000 mg ONCE ONCE PO 06/28/17 04:00 06/28/17 04:01 DC 06/28/17 04:15 1,000 MG Ammonia (Aromatic Spirit) 0.33 ml STK-MED ONCE .ROUTE 06/28/17 05:41 06/28/17 05:44 DC 06/28/17 05:45 0.33 ML Ondansetron HCl 8 mg ONCE ONCE IVP 06/28/17 03:45 06/28/17 03:46 DC 06/28/17 03:46 8 MG Sodium Chloride 1,000 ml @ 0 mls/hr Q0M ONCE IV 06/28/17 03:39 06/28/17 03:42 DC 06/28/17 03:47 0 MLS/HR Vital Signs/I&O Vital Sign - Last 12Hours 06/28/17 06/28/17 02:40 05:50 Temp 98.1 98.1 Pulse 72 52 Resp 9 9 B/P (MAP) 103/74 (84) Pulse Ox 98 98 O2 Delivery Room Air Room Air Blood Pressure Mean: 84 Progress Note #1: Progress Note Patient received Zofran, Tylenol, and a liter of IV fluids for hydration. Chemistry was checked and was normal. Progress Note #2: Progress Note Patient received a liter of IV fluids and Zofran. She slept soundly while in the ER and was difficult to wake up but did eventually wake and become alert. She was discharged home into the care of her father. Departure Impression Impression: Primary Impression: Seizure disorder Additional Impressions: Influenza Facial contusion Qualified Codes: S00.83XA - Contusion of other part of head, initial encounter Nausea and vomiting Qualified Codes: R11.2 - Nausea with vomiting, unspecified Disposition: HOME, SELF-CARE Condition: Improved Departure-Patient Inst. Decision time for Depature: 04:21 Referrals: NO,LOCAL PHYSICIAN (PCP/Family) Primary Care Physician Patient Instructions: Seizures, Adult (DC) Add. Discharge Instructions: Stay well-hydrated. Continue to take your medications as prescribed. Follow- up with your primary care provider as soon as possible. Take Tylenol ( acetaminophen) 1000 mg every 6 hours for the next couple of days to prevent fever and reduced risk of seizure. Return to care if symptoms worsen. Use Zofran (ondansetron) as prescribed for nausea and vomiting. All discharge instructions reviewed with patient and/or family. Voiced understanding. Scripts Ondansetron (Ondansetron Odt) 4 Mg Tab.rapdis 4 MG SL Q4H Y for NAUSEA/VOMITING-1ST LINE, #10 TAB Prov: RAMON REYES MD 06/28/17 RAMON REYES MD Jun 28, 2017 03:51
[2017-06-28 03:58] LABS: BUN/CREATININE RATIO 15; CALCIUM 8.4 MG/DL (8.5-10.1); CARBON DIOXIDE 15 MMOL/L (21-32); CHLORIDE 114 MMOL/L (98-107); CREATININE SERUM 0.99 MG/DL (0.60-1.30); GFR ESTIMATED > 60; GLUCOSE 96 MG/DL (70-105); POTASSIUM 3.8 MMOL/L (3.6-5.0); SODIUM 139 MMOL/L (135-145)
[2017-06-28] MEDS ORDERED: ACETAMINOPHEN 500 MG TAB (TYLENOL) PO ONE (04:00)
[2017-06-28] MEDS ORDERED: ONDA4TAB11 SL (04:24)
[2017-06-28] MEDS ORDERED: AMMONIA INHALATION 0.33 ML AMP ONE (05:41)
[2017-06-28 05:50] VITALS: BP 102/72
== END 2017-06-28 05:50 | disposition home or self-care (01) ==
LOC: EDUNIT# 02:40 → ER 02:42
DX: S00.83XA Contusion of other part of head, initial encounter (principal); G40.909 Epilepsy, unspecified, not intractable, without status epilepticus; J11.1 Influenza due to unidentified influenza virus with other respiratory manifestations; R11.2 Nausea with vomiting, unspecified; J45.909 Unspecified asthma, uncomplicated; Z87.448 Personal history of other diseases of urinary system; Z85.3 Personal history of malignant neoplasm of breast; Z85.038 Personal history of other malignant neoplasm of large intestine; Z90.49 Acquired absence of other specified parts of digestive tract; Z85.41 Personal history of malignant neoplasm of cervix uteri; W18.30XA Fall on same level, unspecified, initial encounter; Y92.002 Bathroom of unspecified non-institutional (private) residence as the place of occurrence of the external cause
CPT/HCPCS: 36415; 80048; 82962; 84703; 96361; 96374

== ENCOUNTER 2017-07-05 14:08 | Emergency (ER) | payer MEDICAID ==
[~2017-07-05] VITALS: Ht 177.8 cm; Wt 92.7 kg
[~2017-07-05 14:08] MED LIST changes: +ONDA4TAB11 SL
[2017-07-05] MEDS ORDERED: LEVE500T99 PO (14:24)
--- NOTE | 2017-07-05 14:25 | ED General ---
General Chief Complaint: General Problems/Pain Stated Complaint: REFERRED BY EVELINA TO GET EEG Source of Information: Patient Exam Limitations: No Limitations History of Present Illness Date Seen by Provider: Jul 05, 2017 Time Seen by Provider: 14:20 Initial Comments Her Keppra to be refilled on a dose of 1500 mg twice a day. She was admitted to the hospital recently for seizures when she tested positive for influenza a few days ago. She states that seizures usually come about when she has a fever and she didn't have that. Upon discharge her dose was changed to 500 mg twice a day. Prior to this she had been on 1500 mg twice a day for about 2 years and this is managed her seizure disorder well. She denies any recent seizures but reports her head felt fuzzy yesterday but does not today. She called her neurologist in [place], that neurologist has since moved to [place] and is unable to fill her prescriptions. Timing/Duration: 1-2 Days Severity: Moderate Allergies and Home Medications Allergies Coded Allergies: cefaclor (Verified Allergy, Unknown, 12/19/13) latex (Verified Allergy, Unknown, 12/19/13) peanut (Verified Allergy, Unknown, 12/19/13) strawberry (Verified Allergy, Unknown, 10/28/16) venom-honey bee (Verified Allergy, Unknown, 12/19/13) Home Medications Levetiracetam 500 Mg Tablet, 500 MG PO BID, #60 Prescribed by: OLIVER MANSFIELD on 06/12/17 1222 Ondansetron 4 Mg Tab.rapdis, 4 MG SL Q4H PRN for NAUSEA/VOMITING-1ST LINE, #10 Prescribed by: RAMON CHURCH on 06/28/17 0424 Topiramate 200 Mg Tablet, 200 MG PO BID, (Reported) Topiramate 200 Mg Tablet, 200 MG PO BID, #60 Prescribed by: OLIVER MANSFIELD on 06/12/17 1222 Constitutional: see HPI EENTM: see HPI Respiratory: no symptoms reported Cardiovascular: no symptoms reported Genitourinary: no symptoms reported Musculoskeletal: no symptoms reported Skin: no symptoms reported Psychiatric/Neurological: No Symptoms Reported Hematologic/Lymphatic: No Symptoms Reported Past Llzxute-Onirob-Jfxthm Hx Patient Social History 2nd Hand Smoke Exposure: No Recent Foreign Travel: No Contact w/Someone Who Travel: No Recent Hopitalizations: No Immunizations Up To Date Tetanus Booster (TDap): More than 5yrs Date of Pneumonia Vaccine: Jun 14, 2011 Date of Influenza Vaccine: Mar 13, 2017 Seasonal Allergies Seasonal Allergies: No Surgeries History of Surgeries: Yes Surgeries: Abdominal, Appendectomy, Bowel Surgery, Breast, Orthopedic Respiratory History of Respiratory Disorde: Yes ("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") Respiratory Disorders: Asthma Currently Using CPAP: No Currently Using BIPAP: No Cardiovascular History of Cardiac Disorders: No Neurological History of Neurological Disord: Yes Neurological Disorders: Seizure Disorder Reproductive System Hx Reproductive Disorders: Yes (CHRONIC PID, CHRONIC PELVIC PAIN; CERVICAL DYSPLASIA-S/P CRYO OF CERVIX X 2) Sexually Transmitted Disease: No Female Reproductive Disorders: Pelvic Inflammatory Dis, Ovarian Cyst Genitourinary History of Genitourinary Disor: No Gastrointestinal History of Gastrointestinal Di: No Musculoskeletal History of Musculoskeletal Dis: No Endocrine History of Endocrine Disorders: No HEENT History of HEENT Disorders: Yes ("VOCAL CORD DYSFUNCTION" SELF REPORTED) Cancer History of Cancer: Yes Cancer: Breast, Cervical, Colon Psychosocial History of Psychiatric Problem: No Integumentary History of Skin or Integumenta: No Blood Transfusions History of Blood Disorders: No Family Medical History Significant Family History: No Pertinent Family Hx Family Medial History: Patient reports no known family medical history. Physical Exam Vital Signs Capillary Refill : General Appearance: No Apparent Distress, WD/WN Eyes: Bilateral Eye Normal Inspection, Bilateral Eye PERRL, Bilateral Eye EOMI HEENT: PERRL/EOMI, TMs Normal Neck: Full Range of Motion, Normal Inspection Respiratory: Normal Breath Sounds, No Accessory Muscle Use, No Respiratory Distress Cardiovascular: Regular Rate, Rhythm, Normal Peripheral Pulses Gastrointestinal: Normal Bowel Sounds, Non Tender, Soft Extremity: Normal Capillary Refill, Normal Inspection Neurologic/Psychiatric: Alert, Oriented x3, No Motor/Sensory Deficits, Normal Mood/Affect Skin: Normal Color, Warm/Dry Progress/Results/Core Measures Suspected Sepsis SIRS Temperature: Pulse: Respiratory Rate: Blood Pressure / Mean: Results/Orders Vital Signs/I&O Capillary Refill : Departure Impression Impression: Primary Impression: Encounter for medication refill Disposition: HOME, SELF-CARE Condition: Stable Departure-Patient Inst. Decision time for Depature: 14:22 Referrals: NO,LOCAL PHYSICIAN (PCP/Family) Primary Care Physician Patient Instructions: NO INSTRUCTIONS GIVEN Add. Discharge Instructions: 1. Medication as directed 2. Stop the current dose of Keppra so that you're new daily dose would be 1500 mg twice a day 3. Follow-up with your doctor. They do not have one call one of the physicians listed today to make an appointment to be seen and they will need to schedule the EEG as this cannot be done from the emergency room All discharge instructions reviewed with patient and/or family. Voiced understanding. 4. Please be advised that she cannot drive for 6 months after most recent seizures. Since you're admitted here a few days ago with seizure you are not permitted to drive until November Levetiracetam (Keppra) 500 Mg Tablet 1500 MG PO BID for 14 Days, TAB Prov: TRUDY GONZALES APRN 07/05/17 Work/School Note: Work Release Form Date Seen in the Emergency Department: Jul 05, 2017 Return to Work: Jul 09, 2017 TRUDY GONZALES APRN Jul 05, 2017 14:25
[2017-07-05 14:30] VITALS: BP 122/72
--- OUTSIDE RECORDS SUMMARY | 2017-07-05 14:31 | XMS REPORT | Continuity of Care Document ---
Author Author [facility] Address Unknown Phone Unavailable Allergies Active Description Code Type Severity Reaction Onset Reported/Identified Relationship to Patient Clinical Status Yes Ceclor Drug Allergy N/A N/A 05/04/2011 Yes latex OA N/A N/A 05/04/2011 Yes Ceclor Drug Allergy 05/04/2011 Yes latex OA 05/04/2011 Yes bee venom (honey bee) [id number] Drug Allergy Unknown N/A 12/19/2013 Yes cefaclor [id number] Drug Allergy Unknown N/A 12/19/2013 Yes latex [id number] Drug Allergy Unknown N/A 12/19/2013 Yes peanut [id number] Drug Allergy Unknown N/A 12/19/2013 Yes venom-honey bee [id number] Drug Allergy Unknown N/A 12/19/2013 Yes strawberry [id number] Drug Allergy Unknown N/A 10/28/2016 Medications There [...] 07/26/2012 STACI BURLESONSHILPI 487.1 INFLUENZA 07/26/2012 MARY PACKER FUSER, VISHNU A 487.1 INFLUENZA 07/26/2012 STACI BURLESONSHILPI 487.1 INFLUENZA 07/26/2012 MARY PACKER FUSER, VISHNU A 487.1 INFLUENZA 07/28/2012 466.0 BRONCHITIS, ACUTE 07/28/2012 466.0 BRONCHITIS, ACUTE 07/28/2012 SHILPI SMALL DO 466.0 BRONCHITIS, ACUTE 07/28/2012 MARY PACKER FUSER, VISHNU A 466.0 BRONCHITIS, ACUTE 07/28/2012 SMALL SHILPI BURLESON 466.0 BRONCHITIS, ACUTE 07/28/2012 MARY PACKER FUSER, VISHNU A 466.0 BRONCHITIS, ACUTE 10/11/2012 AMY [...] SHILPI SMALL DO 786.2 COUGH 01/02/2013 MARY PACKER FUSER, VISHNU A 786.2 COUGH 12/23/2013 TOMMY SAMAYOA [...] 05/02/2014 AMY PLUMMER, RAMON Zeng Ot V06.1 [id number], COMBINED [ 05/02/2014 Ot 611.72 05/02/2014 FERNANDEZ [...] CONVULSIONS 12/19/2014 MARLEN HARRY MD Ot V58.69 [facility],,CURRENT USE 12/19/2014 Ot 611.72 12/19/2014 [...] UNSPECIFIED 06/08/2016 LEVAR ROTHMAN Ot Z79.899 OTHER DETENTION (CURRENT) DRUG THERAPY 06/08/2016 LEVAR ROTHMAN Ot Z98.890 OTHER SPECIFIED POSTPROCEDURAL STATES 06/09/2016 LEVAR ROTHMAN Ot C19 MALIGNANT NEOPLASM OF RECTOSIGMOID JUNCT 06/09/2016 LEVAR ROTHMAN Ot K76.9 LIVER DISEASE, UNSPECIFIED 06/09/2016 LEVAR ROTHMAN Ot N76.0 ACUTE VAGINITIS 06/09/2016 LEVAR ROTHMAN Ot N92.0 EXCESSIVE AND FREQUENT MENSTRUATION WITH 06/09/2016 LEVAR ROTHMAN Ot R10.30 LOWER ABDOMINAL PAIN, UNSPECIFIED 06/09/2016 ELVAR ROTHMAN Ot Z79.899 OTHER DETENTION (CURRENT) DRUG THERAPY 06/09/2016 LEVAR ROTHMAN Ot Z98.890 OTHER SPECIFIED POSTPROCEDURAL STATES 06/13/2016 LEVAR ROTHMAN Ot C19 MALIGNANT NEOPLASM OF RECTOSIGMOID JUNCT 06/13/2016 LEVAR ROTHMAN Ot K76.9 LIVER DISEASE, UNSPECIFIED 06/13/2016 LEVAR ROTHMAN Ot N76.0 ACUTE VAGINITIS 06/13/2016 LEVAR ROTHMAN Ot N92.0 EXCESSIVE AND FREQUENT MENSTRUATION WITH 06/13/2016 LEVAR ROTHMAN Ot R10.30 LOWER ABDOMINAL PAIN, UNSPECIFIED 06/13/2016 LEVAR ROTHMAN Ot Z79.899 OTHER USED EQUIPMENT SALES REPRESENTATIVE (CURRENT) DRUG THERAPY 06/13/2016 LEVAR ROTHMAN L [...] 09/29/2016 MARLEN HARRY MD, Ot Z79.899 OTHER DETENTION (CURRENT) DRUG THERAPY 09/29/2016 MARLEN HARRY MD, [...] 09/30/2016 MARLEN HARRY MD Ot Z79.899 OTHER USED EQUIPMENT SALES REPRESENTATIVE (CURRENT) DRUG THERAPY 09/30/2016 MARLEN HARRY MD Ot Z85.038 PERSONAL HISTORY OF MALIGNANT NEOPLASM O 09/30/2016 MARLEN HARRY MD Ot Z85.3 PERSONAL HISTORY OF MALIGNANT NEOPLASM O 09/30/2016 MARLEN HARRY MD Ot Z85.41 PERSONAL HISTORY OF MALIGNANT NEOPLASM O 09/30/2016 WISAM RAHMAN DO Ot G40.909 EPILEPSY, UNSP, NOT INTRACTABLE, WITHOUT 09/30/2016 WISAM RAHMAN DO Ot Z79.899 OTHER DETENTION (CURRENT) DRUG THERAPY 10/01/2016 WISAM RAHMAN DO, Ot G40.909 EPILEPSY, UNSP, NOT INTRACTABLE, WITHOUT 10/01/2016 WISAM RAHMAN DO, Ot Z79.899 OTHER USED EQUIPMENT SALES REPRESENTATIVE (CURRENT) DRUG THERAPY 10/02/2016 WISAM RAHMAN DO, Ot G40.909 EPILEPSY, UNSP, NOT INTRACTABLE, WITHOUT 10/02/2016 WISAM RAHMAN DO Ot G43.909 MIGRAINE, UNSP, NOT INTRACTABLE, WITHOUT 10/02/2016 WISAM RAHMAN DO Ot Z79.899 OTHER DETENTION (CURRENT) DRUG THERAPY 10/06/2016 MARLEN HARRY MD, [...] 10/06/2016 MARLEN HARRY MD, Ot Z79.899 OTHER USED EQUIPMENT SALES REPRESENTATIVE (CURRENT) DRUG THERAPY 10/06/2016 MARLEN HARRY MD [...] 10/07/2016 WISAM RAHMAN DO, Ot Z79.899 OTHER USED EQUIPMENT SALES REPRESENTATIVE (CURRENT) DRUG THERAPY 10/28/2016 VENKAT BHATIA Ot G40.909 EPILEPSY, UNSP, NOT INTRACTABLE, WITHOUT 10/28/2016 VENKAT BHATIAP Ot M25.551 PAIN IN RIGHT HIP 10/28/2016 VENKAT BHATIAP Ot Z79.899 OTHER DETENTION (CURRENT) DRUG THERAPY 11/02/2016 GUZMAN PLUMMER, OSCAR H Ot G40.909 EPILEPSY, UNSP, NOT INTRACTABLE, WITHOUT 11/02/2016 GUZMAN PLUMMER, OSCAR H Ot R26.81 UNSTEADINESS ON FEET 11/03/2016 VENKAT BHATIAP Ot G40.909 EPILEPSY, UNSP, NOT INTRACTABLE, WITHOUT 11/03/2016 VENKAT BHATIAP Ot M25.551 PAIN IN RIGHT HIP 11/03/2016 VENKAT BHATIAP Ot Z79.899 OTHER USED EQUIPMENT SALES REPRESENTATIVE (CURRENT) DRUG THERAPY 11/25/2016 GUZMAN PLUMMER, OSCAR [...] 03/29/2017 CIERRA CARLIN MD Ot Z79.899 OTHER DETENTION (CURRENT) DRUG THERAPY 03/29/2017 CIERRA CARLIN MD [...] UNSPECIFIED ASTHMA, UNCOMPLICATED 04/15/2017 REINIER BURLESON TRENA Trinidad Ot K57.92 DVTRCLI OF INTEST, PART UNSP, W/O PERF O 04/15/2017 REINIER BURLESON TRENA K Ot R10.30 LOWER ABDOMINAL PAIN, UNSPECIFIED 04/15/2017 REINIER BURLESON TRENA K Ot Z85.038 PERSONAL HISTORY OF MALIGNANT NEOPLASM O 04/15/2017 REINIER BURLESON TRENA [place] Ot Z85.3 PERSONAL HISTORY OF MALIGNANT NEOPLASM O 04/15/2017 REINIER BURLESON TRENA K Ot Z85.41 PERSONAL HISTORY OF MALIGNANT NEOPLASM O 04/15/2017 REINIER BURLESON TRENA K Ot Z87.448 PERSONAL HISTORY OF OTHER DISEASES OF UR 04/15/2017 REINIER BURLESON TRENA Trin[place] Ot Z90.49 ACQUIRED ABSENCE OF OTHER SPECIFIED PART 06/12/2017 OLIVER MANSFIELD DO Ot E66.9 OBESITY, UNSPECIFIED 06/12/2017 OLIVER MANSFIELD DO Ot F15.90 OTHER STIMULANT USE, UNSPECIFIED, UNCOMP 06/12/2017 OLIVER MANSFIELD DO Ot G40.901 EPILEPSY, UNSP, NOT INTRACTABLE, WITH ST 06/12/2017 OLIVER MANSFIELD DO Ot J45.909 UNSPECIFIED ASTHMA, UNCOMPLICATED 06/12/2017 OLIVER MANSFIELD DO Ot N73.1 CHRONIC PARAMETRITIS AND PELVIC CELLULIT 06/12/2017 OLIVER MANSFIELD DO Ot Z68.32 BODY MASS INDEX (BMI) 32.0-32.9, ADULT 06/12/2017 OLIVER MANSFIELD DO Ot Z79.899 OTHER DETENTION (CURRENT) DRUG THERAPY 06/12/2017 OLIVER MANSFIELD DO Ot Z85.038 PERSONAL HISTORY OF MALIGNANT NEOPLASM O 06/12/2017 OLIVER MANSFIELD DO Ot Z85.3 PERSONAL HISTORY OF MALIGNANT NEOPLASM O 06/12/2017 OLIVER MANSFIELD DO Ot Z85.41 PERSONAL HISTORY OF MALIGNANT NEOPLASM O 06/12/2017 MANSFIELD DO, OLIVER Ot Z91.14 PATIENT'S OTHER NONCOMPLIANCE WITH MEDIC 06/12/2017 MANSFIELD DO, OLIVER Ot E66.9 OBESITY, UNSPECIFIED 06/12/2017 MANSFIELD DO, OLIVER Ot F15.90 OTHER STIMULANT USE, UNSPECIFIED, UNCOMP 06/12/2017 MANSFIELD DO OLIVER Ot G40.901 EPILEPSY, UNSP, NOT INTRACTABLE, WITH ST 06/12/2017 MANSFIELD DO OLIVER Ot J45.909 UNSPECIFIED ASTHMA, UNCOMPLICATED 06/12/2017 MANSFIELD DO, OLIVER Ot N73.1 CHRONIC PARAMETRITIS AND PELVIC CELLULIT 06/12/2017 MANSFIELD DO OLIVER Ot Z68.32 BODY MASS INDEX (BMI) 32.0-32.9, ADULT 06/12/2017 MANSFIELD DO OLIVER Ot Z79.899 OTHER USED EQUIPMENT SALES REPRESENTATIVE (CURRENT) DRUG THERAPY 06/12/2017 MANSFIELD DO OLIVER Ot Z85.038 PERSONAL HISTORY OF MALIGNANT NEOPLASM O 06/12/2017 SHYLA DO OLIVER Ot Z85.3 PERSONAL HISTORY OF MALIGNANT NEOPLASM O 06/12/2017 MANSFIELD DO OLIVER Ot Z85.41 PERSONAL HISTORY OF MALIGNANT NEOPLASM O 06/12/2017 MANSFIELD DO, OLIVER Ot Z91.14 PATIENT'S OTHER NONCOMPLIANCE WITH MEDIC 06/16/2017 SHYLA DO OLIVER Ot E66.9 OBESITY, UNSPECIFIED 06/16/2017 MANSFIELD DO OLIVER Ot F15.90 OTHER STIMULANT USE, UNSPECIFIED, UNCOMP 06/16/2017 SHYLA DO OLIVER Ot G40.901 EPILEPSY, UNSP, NOT INTRACTABLE, WITH ST 06/16/2017 SHYLA DO OLIVER Ot J45.909 UNSPECIFIED ASTHMA, UNCOMPLICATED 06/16/2017 MANSFIELD DO OLIVER Ot N73.1 CHRONIC PARAMETRITIS AND PELVIC CELLULIT 06/16/2017 SHYLA DO OLIVER Ot Z68.32 BODY MASS INDEX (BMI) 32.0-32.9, ADULT 06/16/2017 MANSFIELD DO OLIVER Ot Z79.899 OTHER DETENTION (CURRENT) DRUG THERAPY 06/16/2017 SHYLA DO OLIVER Ot Z85.038 PERSONAL HISTORY OF MALIGNANT NEOPLASM O 06/16/2017 SHYLA DO OLIVER Ot Z85.3 PERSONAL HISTORY OF MALIGNANT NEOPLASM O 06/16/2017 OLIVER MANSFIELD DO Ot Z85.41 PERSONAL HISTORY OF MALIGNANT NEOPLASM O 06/16/2017 OLIVER MANSFIELD DO Ot Z91.14 PATIENT'S OTHER NONCOMPLIANCE WITH MEDIC 06/16/2017 OLIVER MANSFIELD DO Ot E66.9 OBESITY, UNSPECIFIED 06/16/2017 SHYLA BURLESON OLIVER Ot F15.90 OTHER STIMULANT USE, UNSPECIFIED, UNCOMP 06/16/2017 OLIVER MANSFIELD DO Ot G40.901 EPILEPSY, UNSP, NOT INTRACTABLE, WITH ST 06/16/2017 OLIVER MANSFIELD DO Ot J45.909 UNSPECIFIED ASTHMA, UNCOMPLICATED 06/16/2017 OLIVER MANSFIELD DO Ot N73.1 CHRONIC PARAMETRITIS AND PELVIC CELLULIT 06/16/2017 OLIVER MANSFIELD DO Ot Z68.32 BODY MASS INDEX (BMI) 32.0-32.9, ADULT 06/16/2017 OLIVER MANSFIELD DO Ot Z79.899 OTHER DETENTION (CURRENT) DRUG THERAPY 06/16/2017 OLIVER MANSFIELD DO Ot Z85.038 PERSONAL HISTORY OF MALIGNANT NEOPLASM O 06/16/2017 OLIVER MANSFIELD DO Ot Z85.3 PERSONAL HISTORY OF MALIGNANT NEOPLASM O 06/16/2017 OLIVER MANSFIELD DO Ot Z85.41 PERSONAL HISTORY OF MALIGNANT NEOPLASM O 06/16/2017 OLIVER MANSFIELD DO Ot Z91.14 PATIENT'S OTHER NONCOMPLIANCE WITH MEDIC Procedures Code Description Performed By Performed On DOMENICO SALEEM 07/12/2012 62226 XRAY CHEST 2 VIEW 07/30/2012 96.04 INSERT ENDOTRACHEAL TUBE 12/18/2013 96.71 CONTINUOUS INVASIVE MECHANICAL VENTILATI 12/18/2013 79325 TEST, URINE (IN- HOUSE) 04/11/2014 48525 TEST, URINE (IN- HOUSE) 09/02/2014 Results Test [...] identification in genital specimen by aerobe culture [id number] NRG Microscopic examination by wet preparation - 06/08/16 [...] INFLUENZA A AND B ANTIGENS BY IA NRG Complete urinalysis with reflex to culture - 03/29/17 02:50 Urine color determination RED NRG Urine clarity determination BLOODY NRG Urine pH measurement by test strip 5 [...] - 04/15/17 04:10 Lipase 45 U/L 8-78 Complete blood count (CBC) with automated white blood cell (WBC) differential - 06/11/17 17:15 Blood leukocytes automated count (number/volume) 6.8 10*3/uL 4.3-11.0 Blood erythrocytes automated count (number/volume) 4.94 10*6/uL 4.35-5.85 Venous blood hemoglobin measurement (mass/volume) 15.2 g/dL 11.5-16.0 Blood hematocrit (volume fraction) 44 % 35-52 Automated erythrocyte mean corpuscular volume 89 [foz_us] 80-99 Automated erythrocyte mean corpuscular hemoglobin (mass per erythrocyte) 31 pg 25-34 Automated erythrocyte mean corpuscular hemoglobin concentration measurement ( mass/volume) 35 g/dL 32-36 Automated erythrocyte distribution width ratio 12.8 % 10.0-14.5 Automated blood platelet count (count/volume) 173 10*3/uL 130-400 Automated blood platelet mean volume measurement 9.8 [foz_us] 7.4-10.4 Automated blood neutrophils/100 leukocytes 58 % 42-75 Automated blood lymphocytes/100 leukocytes 28 % 12-44 Blood monocytes/100 leukocytes 10 % 0-12 Automated blood eosinophils/100 leukocytes 4 % 0-10 Automated blood basophils/100 leukocytes 0 % 0-10 Blood neutrophils automated count (number/volume) 3.9 10*3 1.8-7.8 Blood lymphocytes automated count (number/volume) 1.9 10*3 1.0-4.0 Blood monocytes automated count (number/volume) 0.6 10*3 0.0-1.0 Automated eosinophil count 0.3 10*3/uL 0.0-0.3 Automated blood basophil count (count/volume) 0.0 10*3/uL 0.0-0.1 Comprehensive metabolic panel - 06/11/17 17:15 Serum or plasma sodium measurement (moles/volume) 141 mmol/L 135-145 Serum or plasma potassium measurement (moles/volume) 4.1 mmol/L 3.6-5.0 Serum or plasma chloride measurement (moles/volume) 105 mmol/L 98-107 Carbon dioxide 24 mmol/L 21-32 Serum or plasma anion gap determination (moles/volume) 12 mmol/L 5-14 Serum or plasma urea nitrogen measurement (mass/volume) 11 mg/dL 7-18 Serum or plasma creatinine measurement (mass/volume) 0.83 mg/dL 0.60-1.30 Serum or plasma urea nitrogen/creatinine mass ratio 13 NRG Serum or plasma creatinine measurement with calculation of estimated glomerular filtration rate > NRG Serum or plasma glucose measurement (mass/volume) 83 mg/dL 70-105 Serum or plasma calcium measurement (mass/volume) 9.3 mg/dL 8.5-10.1 Serum or plasma total bilirubin measurement (mass/volume) 0.5 mg/dL 0.1-1.0 Serum or plasma alkaline phosphatase measurement (enzymatic activity/volume) 56 U/L 40-136 Serum or plasma aspartate aminotransferase measurement (enzymatic activity/ volume) 32 U/L 5-34 Serum or plasma alanine aminotransferase measurement (enzymatic activity/volume ) 95 U/L 0-55 Serum or plasma protein measurement (mass/volume) 7.6 g/dL 6.4-8.2 Serum or plasma albumin measurement (mass/volume) 4.3 g/dL 3.2-4.5 Magnesium - 06/11/17 17:15 Magnesium 2.1 mg/dL 1.8-2.4 THYROID STIMULATING HORMONE - 06/11/17 17:15 THYROID STIMULATING HORMONE 1.10 u[iU]/mL 0.35-4.94 Complete urinalysis with reflex to culture - 06/11/17 17:40 Urine color determination YELLOW NRG Urine clarity determination CLEAR NRG Urine pH measurement by test strip 5 5-9 Specific gravity of urine by test strip 1.025 1.016- 1.022 Urine protein assay by test strip, semi-quantitative NEGATIVE NEGATIVE Urine glucose detection by automated test strip NEGATIVE NEGATIVE Erythrocytes detection in urine sediment by light microscopy 2+ NEGATIVE Urine ketones detection by automated test [...] urine sediment by light microscopy NEGATIVE NRG Squamous epithelial cells detection in urine sediment by light microscopy 5-10 NRG Crystals detection in urine sediment by light microscopy NONE NRG Casts detection in urine sediment by light microscopy NONE NRG Mucus detection in urine sediment by light microscopy NEGATIVE NRG Complete urinalysis with reflex to culture NO NRG Capillary blood glucose measurement by glucometer (mass/volume) - 06/11/17 18: 04 Capillary blood glucose measurement by glucometer (mass/volume) 79 mg/dL 70-110 Urine drug screening test - 06/11/17 18:05 Urine phencyclidine detection by screening method NEGATIVE [...] NEGATIVE NEGATIVE Urine propoxyphene detection NEGATIVE NEGATIVE Methicillin resistant Staphylococcus aureus (MRSA) screening culture - 19:55 Methicillin resistant Staphylococcus aureus (MRSA) screening culture NEG NRG Complete blood count (CBC) with automated white blood cell (WBC) differential - 06/12/17 04:31 Blood leukocytes automated count (number/volume) 6.5 10*3/uL 4.3-11.0 Blood erythrocytes automated count (number/volume) 4.62 10*6/uL 4.35-5.85 Venous blood hemoglobin measurement (mass/volume) 14.2 g/dL 11.5-16.0 Blood hematocrit (volume fraction) 41 % 35-52 Automated erythrocyte mean corpuscular volume 88 [foz_us] 80-99 Automated erythrocyte mean corpuscular hemoglobin (mass per erythrocyte) 31 pg 25-34 Automated erythrocyte mean corpuscular hemoglobin concentration measurement ( mass/volume) 35 g/dL 32-36 Automated erythrocyte distribution width ratio 12.5 % 10.0-14.5 Automated blood platelet count (count/volume) 162 10*3/uL 130-400 Automated blood platelet mean volume measurement 9.2 [foz_us] 7.4-10.4 Automated blood neutrophils/100 leukocytes 61 % 42-75 Automated blood lymphocytes/100 leukocytes 27 % 12-44 Blood monocytes/100 leukocytes 8 % 0-12 Automated blood eosinophils/100 leukocytes 4 % 0-10 Automated blood basophils/100 leukocytes 0 % 0-10 Blood neutrophils automated count (number/volume) 3.9 10*3 1.8-7.8 Blood lymphocytes automated count (number/volume) 1.8 10*3 1.0-4.0 Blood monocytes automated count (number/volume) 0.5 10*3 0.0-1.0 Automated eosinophil count 0.2 10*3/uL 0.0-0.3 Automated blood basophil count (count/volume) 0.0 10*3/uL 0.0-0.1 Whole blood basic metabolic panel - 06/12/17 04:31 Serum or plasma sodium measurement (moles/volume) 138 mmol/L 135-145 Serum or plasma potassium measurement (moles/volume) 3.7 mmol/L 3.6-5.0 Serum or plasma chloride measurement (moles/volume) 105 mmol/L 98-107 Carbon dioxide 23 mmol/L 21-32 Serum or plasma anion gap determination (moles/volume) 10 mmol/L 5-14 Serum or plasma urea nitrogen measurement (mass/volume) 11 mg/dL 7-18 Serum or plasma creatinine measurement (mass/volume) 0.73 mg/dL 0.60-1.30 Serum or plasma urea nitrogen/creatinine mass ratio 15 NRG Serum or plasma creatinine measurement with calculation of estimated glomerular filtration rate > NRG Serum or plasma glucose measurement (mass/volume) 79 mg/dL 70-105 Serum or plasma calcium measurement (mass/volume) 8.7 mg/dL 8.5-10.1 Serum or plasma phosphate measurement (mass/volume) - 06/12/17 04:31 Serum or plasma phosphate measurement (mass/volume) 3.1 mg/dL 2.3-4.7 Magnesium - 06/12/17 04:31 Magnesium 1.8 mg/dL 1.8-2.4 Complete blood count (CBC) with automated white blood cell (WBC) differential - 06/26/17 15:30 Blood leukocytes automated count (number/volume) 6.7 10*3/uL 4.3-11.0 Blood erythrocytes automated count (number/volume) 4.66 10*6/uL 4.35-5.85 Venous blood hemoglobin measurement (mass/volume) 14.6 g/dL 11.5-16.0 Blood hematocrit (volume fraction) 41 % 35-52 Automated erythrocyte mean corpuscular volume 87 [foz_us] 80-99 Automated erythrocyte mean corpuscular hemoglobin (mass per erythrocyte) 31 pg 25-34 Automated erythrocyte mean corpuscular hemoglobin concentration measurement ( mass/volume) 36 g/dL 32-36 Automated erythrocyte distribution width ratio 12.8 % 10.0-14.5 Automated blood platelet count (count/volume) 180 10*3/uL 130-400 Automated blood platelet mean volume measurement 10.4 [foz_us] 7.4-10.4 Automated blood neutrophils/100 leukocytes 66 % 42-75 Automated blood lymphocytes/100 leukocytes 24 % 12-44 Blood monocytes/100 leukocytes 8 % 0-12 Automated blood eosinophils/100 leukocytes 2 % 0-10 Automated blood basophils/100 leukocytes 0 % 0-10 Blood neutrophils automated count (number/volume) 4.4 10*3 1.8-7.8 Blood lymphocytes automated count (number/volume) 1.6 10*3 1.0-4.0 Blood monocytes automated count (number/volume) 0.5 10*3 0.0-1.0 Automated eosinophil count 0.1 10*3/uL 0.0-0.3 Automated blood basophil count (count/volume) 0.0 10*3/uL 0.0-0.1 PT panel in platelet poor plasma by coagulation assay - 06/26/17 15:30 Prothrombin time (PT) in platelet poor plasma by coagulation assay 14.0 s 12.2-14.7 INR in platelet poor plasma or blood by coagulation assay 1.1 0.8-1.4 Activated partial thromboplastin time (aPTT) in platelet poor plasma bycoagulation assay - 06/26/17 15:30 Activated partial thromboplastin time (aPTT) in platelet poor plasma bycoagulation assay 29 s 24-35 Comprehensive metabolic panel - 06/26/17 15:30 Serum or plasma sodium measurement (moles/volume) 138 mmol/L 135-145 Serum or plasma potassium measurement (moles/volume) 3.6 mmol/L 3.6-5.0 Serum or plasma chloride measurement (moles/volume) 110 mmol/L 98-107 Carbon dioxide 20 mmol/L 21-32 Serum or plasma anion gap determination (moles/volume) 8 mmol/L 5-14 Serum or plasma urea nitrogen measurement (mass/volume) 15 mg/dL 7-18 Serum or plasma creatinine measurement (mass/volume) 1.07 mg/dL 0.60-1.30 Serum or plasma urea nitrogen/creatinine mass ratio 14 NRG Serum or plasma creatinine measurement with calculation of estimated glomerular filtration rate 59 NRG Serum or plasma glucose measurement (mass/volume) 103 mg/dL 70-105 Serum or plasma calcium measurement (mass/volume) 9.1 mg/dL 8.5-10.1 Serum or plasma total bilirubin measurement (mass/volume) 0.4 mg/dL 0.1-1.0 Serum or plasma alkaline phosphatase measurement (enzymatic activity/volume) 54 U/L 40-136 Serum or plasma aspartate aminotransferase measurement (enzymatic activity/ volume) 20 U/L 5-34 Serum or plasma alanine aminotransferase measurement (enzymatic activity/volume ) 44 U/L 0-55 Serum or plasma protein measurement (mass/volume) 7.2 g/dL 6.4-8.2 Serum or plasma albumin measurement (mass/volume) 4.1 g/dL 3.2-4.5 Serum or plasma troponin i.cardiac measurement (mass/volume) - 06/26/17 15:30 Serum or plasma troponin i.cardiac measurement (mass/volume) < ng/ mL <0.30 Serum or plasma thyrotropin measurement by detection limit <=0.05 miu/l (units/ volume) - 06/26/17 15:30 Serum or plasma thyrotropin measurement by detection limit <=0.05 miu/l (units/ volume) 1.34 u[iU]/mL 0.35-4.94 Serum or plasma C reactive protein measurement (mass/volume) - 06/26/17 15:30 Serum or plasma C reactive protein measurement (mass/volume) 0.02 mg /dL 0.00-0.50 Serum or plasma salicylates measurement (mass/volume) - 06/26/17 15:30 Serum or plasma salicylates measurement (mass/volume) < mg/dL 5.0-20.0 Serum or plasma acetaminophen measurement (mass/volume) - 06/26/17 15:30 Serum or plasma acetaminophen measurement (mass/volume) < ug/mL 10-30 Serum or plasma ethanol measurement (mass/volume) - 06/26/17 15:30 Serum or plasma ethanol measurement (mass/volume) < mg/dL <10 Complete urinalysis with reflex to culture - 06/26/17 16:55 Urine color determination YELLOW NRG Urine clarity determination CLEAR NRG Urine pH measurement by test strip 7 5-9 Specific gravity of urine by test strip 1.010 1.016- 1.022 Urine protein assay by test [...] detection in urine sediment by light microscopy 2-5 NRG Crystals detection in urine sediment by light microscopy NONE NRG Casts detection in urine sediment by light microscopy NONE NRG Mucus detection in urine sediment by light microscopy NEGATIVE NRG Complete urinalysis with reflex to culture NO NRG Urine drug screening test - 06/26/17 16:55 Urine phencyclidine detection by screening method NEGATIVE [...] NEGATIVE NEGATIVE Urine propoxyphene detection NEGATIVE NEGATIVE Capillary blood glucose measurement by glucometer (mass/volume) - 06/26/17 19: 45 Capillary blood glucose measurement by glucometer (mass/volume) 75 mg/dL 70-110 Serum or plasma choriogonadotropin ( test) detection - 06/28/17 02:50 Serum or plasma choriogonadotropin ( test) detection NEGATIVE NEGATIVE Whole blood basic metabolic panel - 06/28/17 02:50 Serum or plasma sodium measurement (moles/volume) 139 mmol/L 135-145 Serum or plasma potassium measurement (moles/volume) 3.8 mmol/L 3.6-5.0 Serum or plasma chloride measurement (moles/volume) 114 mmol/L 98-107 Carbon dioxide 15 mmol/L 21-32 Serum or plasma anion gap determination (moles/volume) 10 mmol/L 5-14 Serum or plasma urea nitrogen measurement (mass/volume) 15 mg/dL 7-18 Serum or plasma creatinine measurement (mass/volume) 0.99 mg/dL 0.60-1.30 Serum or plasma urea nitrogen/creatinine mass ratio 15 NRG Serum or plasma creatinine measurement with calculation of estimated glomerular filtration rate > NRG Serum or plasma glucose measurement (mass/volume) 96 mg/dL 70-105 Serum or plasma calcium measurement (mass/volume) 8.4 mg/dL 8.5-10.1 Capillary blood glucose measurement by glucometer (mass/volume) - 06/28/17 05: 42 Capillary blood glucose measurement by glucometer (mass/volume) 79 mg/dL 70-110 Encounters ACCT No. Visit Date/Time Discharge Status Pt. Type Provider Facility Loc./Unit Complaint [id number] 09/02/2014 11:10:00 09/02/2014 23:59:59 CLS Outpatient VISHNU HERNANDEZ APRN [id number] 07/25/2014 14:37:00 07/25/2014 23:59:59 CLS Outpatient SHILPI SMALL DO [id number] 04/11/2014 16:52:00 04/11/2014 23:59:59 CLS Outpatient VISHNU HERNANDEZ APRN [id number] 01/29/2013 08:14:00 01/29/2013 23:59:59 CLS Outpatient SHILPI SMALL DO [id number] 07/28/2012 11:17:00 07/28/2012 23:59:59 CLS Outpatient [id number] 07/26/2012 13:43:00 07/26/2012 23:59:59 CLS Outpatient [id number] 07/12/2012 15:21:00 07/12/2012 23:59:59 CLS Outpatient [id number] 03/15/2012 17:36:00 03/15/2012 23:59:59 CLS Outpatient [id number] 10/31/2012 08:07:00 Document Registration [id number] 06/28/2017 02:42:00 06/28/2017 05:50:00 DIS Emergency RAMON REYES MD [facility] ER SEIZURE [id number] 06/26/2017 15:25:00 06/26/2017 22:20:00 DIS Emergency LEVAR ROTHMAN [facility] ER UNRESPONSIVE [id number] 06/11/2017 19:30:00 06/12/2017 12:22:00 DIS Inpatient OLIVER MANSFIELD DO [facility] 4TH SEIZURE [id number] 04/15/2017 03:43:00 04/15/2017 06:12:00 DIS Emergency TRENA HILLS DO [facility] ER BLOOD IN URINE,PELVIC PAIN ,LOWER ABD PAIN [id number] 03/29/2017 00:59:00 03/29/2017 05:04:00 DIS Emergency TESFAYE PLUMMER, CIERRA Currie [facility] ER SEIZURE [id number] 12/07/2016 10:07:00 12/28/2016 08:43:00 DIS Outpatient OSCAR HINDS MD [facility] REHAB ABNORMAL GAIT [id number] 10/28/2016 15:09:00 10/28/2016 16:27:00 DIS Emergency VENKAT BHATIA [facility] ER POSSIBLE HIP FRACTURE [id number] 10/01/2016 21:37:00 10/02/2016 00:09:00 DIS Emergency WISAM RAHMAN DO [facility] ER SEIZURE [id number] 09/30/2016 21:32:00 09/30/2016 23:30:00 DIS Emergency WISAM RAHMAN DO [facility] ER UNRESPONSIVE [id number] 09/29/2016 15:51:00 09/29/2016 17:55:00 DIS Emergency MARLEN HARRY MD [facility] ER FELL HIT HEAD ON BATHTUB [id number] 06/08/2016 11:25:00 06/08/2016 16:28:00 DIS Emergency LEVAR ROTHMAN [facility] ER ABD CRAMPING VAG DISCHARGE WATER/BLOOD [id number] 12/19/2014 14:49:00 12/19/2014 15:55:00 DIS Emergency MARLEN HARRY MD [facility] ER SEIZURES [id number] 12/18/2014 13:57:00 12/18/2014 16:10:00 DIS Emergency KAMRYN PLUMMER, MARLEN [place] [facility] ER POSS SEIZURE [id number] 05/02/2014 10:07:00 05/02/2014 11:29:00 DIS Emergency AMY PLUMMER, RAMON Zeng [facility] ER RIGHT MIDDLE FINGER LAC [id number] 12/18/2013 21:58:00 12/18/2013 23:59:59 CLS Inpatient TOMMY SAMAYOA DO [facility] ICU HEAD INJURY,ASSAULT, SEIZURE [id number] 12/22/2012 06:47:00 12/22/2012 16:20:00 DIS Outpatient DOMENICO FERNANDEZ DO [facility] CHRONIC PELVIC PAIN [id number] 12/18/2012 13:12:00 12/18/2012 23:59:59 CLS Outpatient DOMENICO FERNANDEZ DO [facility] PREOP CHRONIC PELVIC PAIN [id number] 10/11/2012 17:29:00 10/11/2012 20:15:00 DIS Emergency RAMON REYES MD [facility] ER PSEUDO SEIZURE [id number] 11/17/2011 10:00:00 Document Registration
== END 2017-07-05 14:30 | disposition home or self-care (01) ==
LOC: EDUNIT# 14:08 → ER 14:10
DX: G40.909 Epilepsy, unspecified, not intractable, without status epilepticus (principal); J45.909 Unspecified asthma, uncomplicated; Z85.3 Personal history of malignant neoplasm of breast; Z85.038 Personal history of other malignant neoplasm of large intestine; Z85.41 Personal history of malignant neoplasm of cervix uteri; Z87.42 Personal history of other diseases of the female genital tract; Z90.49 Acquired absence of other specified parts of digestive tract
CPT/HCPCS: 99281

== ENCOUNTER 2017-09-03 12:23 | Emergency (ER) | payer MEDICAID ==
[~2017-09-03] VITALS: Ht 170.2 cm; Wt 86.2 kg
[2017-09-03] MEDS ORDERED: LACTATED RINGERS 1,000 ML IV ONE (12:31)
[2017-09-03 12:45] LABS: BASOPHILS % (AUTO) 0 % (0-10); EOSINOPHILS # (AUTO) 0.2 10^3/uL (0.0-0.3); EOSINOPHILS % (AUTO) 3 % (0-10); HEMATOCRIT 39 % (35-52); HEMOGLOBIN 13.5 G/DL (11.5-16.0); LYMPHOCYTES # (AUTO) 1.6 X 10^3 (1.0-4.0); LYMPHOCYTES % (AUTO) 24 % (12-44); MEAN CORPUSCULAR HEMOGLOBIN 32 PG (25-34); MEAN CORPUSCULAR HGB CONC 35 G/DL (32-36); MEAN CORPUSCULAR VOLUME 91 FL (80-99); MEAN PLATELET VOLUME 10.1 FL (7.4-10.4); MONOCYTES # (AUTO) 0.8 X 10^3 (0.0-1.0); MONOCYTES % (AUTO) 11 % (0-12); NEUTROPHILS # (AUTO) 4.2 X 10^3 (1.8-7.8); NEUTROPHILS % (AUTO) 62 % (42-75); PLATELET COUNT 145 10^3/uL (130-400); RED BLOOD COUNT 4.24 10^6/uL (4.35-5.85); RED CELL DISTRIBUTION WIDTH 12.9 % (10.0-14.5); WHITE BLOOD COUNT 6.8 10^3/uL (4.3-11.0)
--- OUTSIDE RECORDS SUMMARY | 2017-09-03 12:45 | XMS REPORT | Continuity of Care Document ---
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
--- OUTSIDE RECORDS SUMMARY | 2017-09-03 12:46 | XMS REPORT | Referral Summary ---
Author Author [facility] Organization [facility] Address Unknown Phone Unavailable Care Team Providers Care Assembler For Puller Over Hand Name Role Phone Mago Mendez PCP Encounter VC Date(s): 10/07/16 - 10/07/16 [facility] [address] [facility] [address] [place], [place] [address] Discharge Diagnosis: Epilepsy Discharge Diagnosis: Imbalance Discharge Disposition: 01-Home or Self Care Attending Physician: Raul Urbina MD Admitting Physician: Raul Urbina MD Vital Signs Most recent to 1 oldest [Reference Range]: Peripheral Pulse 70 bpm Rate [60-100 bpm] (10/07/16 9:55 AM) Blood Pressure 120/80 mmHg [90-140/60-90 mmHg] (10/07/16 9:55 AM) Problem List Condition Effective Dates Status Health Status Informant Asthma(Confirmed) Resolved Epilepsy(Confirmed) Active H/O Resolved varicella(Confirmed) Allergies, Adverse Reactions, Alerts Substance Reaction Severity Status Bee Stings Active cefaclor seizure Severe Active Latex itching,swelling Medium Active Nuts Anaphylaxis Severe Active Medications 5FU CHEMO 5FU CHEMO, 0 Refill(s) Start Date: 07/13/16 Status: Ordered albuterol CFC free 90 mcg/inh inhalation aerosol puffs, Inhalation, QID, 0 Refill(s) Start Date: 03/12/14 Status: Ordered Flovent HFA 220 mcg/inh inhalation aerosol 1 puffs, Inhalation, BID, # 12 g, 0 Refill(s) Start Date: 03/12/14 Status: Ordered levETIRAcetam 500 mg oral tablet See Instructions, TAKE 0.5 TAB BIDX 1 WEEK, TAKE 0.5 TAB QHSX 1 WEEK THEN STOP. , # 11 tabs, 0 Refill(s), Pharmacy: [facility] #[id number], TAKE 0.5 TAB BIDX 1 WEEK, TAKE 0.5 TAB QHSX 1 WEEK THEN STOP. Start Date: 08/23/16 Status: Ordered multivitamin Daily, 0 Refill(s) Start Date: 03/12/14 Status: Ordered topiramate 50 mg oral tablet 100 mg 2 tabs, Oral, BID, # 120 tabs, 3 Refill(s), Pharmacy: [facility] # [id number], 2 tabs Oral BID Start Date: 07/28/16 Status: Ordered Results No data available for this section Immunizations No data available for this section Procedures Procedure Date Related Diagnosis Body Site Abnormal breast biopsy Carpal tunnel Cervical cryoconization H/O ovarian cancer H/O right heart catheterization History of appendectomy Social History Social History Type Response Smoking Status Never smoker Assessment and Plan Extracted from: Title: Neurology follow up Author: Raul Urbina MD Date: 10/07/16 Assessment/Plan 1. Epilepsy: Uncontrolled The patient had several seizures in the last week Medications were just increased to 1500 mg of Keppra twice a day and Topamax 200 mg twice a day Continue current medications for now Obtain MRI of the brain with and without contrast for further evaluation especially in light of her recent diagnosis of colorectal cancer I'll obtain records from [facility] in [facility] and review the EEG results in addition to head imaging as well. Consider EMU admission if she continues to have further spells Seizure precautions: Avoid driving, operating heavy machinery, heights, swimming alone, or any activity where sudden loss of awareness may result in bodily injury to self or others. These precautions are to be followed until seizure free for at least 6 months. 2. Imbalance: medications vs. post ictal I informed her thatsince her seizures are improving that her gait is likely to improve. 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 She can be evaluatedby a nurse at her working facility prior toallowing her to go back to work
[2017-09-03] MEDS ORDERED: ONDANSETRON 4 MG/2 ML (SDV) Z0FRAN ONE (12:49)
[2017-09-03 13:06] LABS: BILIRUBIN,URINE NEGATIVE (NEGATIVE); CLARITY,URINE VERY CLOUDY; COLOR,URINE YELLOW; GLUCOSE, URINE (UA) NEGATIVE (NEGATIVE); KETONES,URINE NEGATIVE (NEGATIVE); LEUKOCYTE ESTERASE ,URINE 1+ (NEGATIVE); NITRITE,URINE NEGATIVE (NEGATIVE); PH,URINE 8 (5-9); PROTEIN,URINE NEGATIVE (NEGATIVE); UROBILINOGEN,URINE NORMAL (NORMAL)
[2017-09-03 13:07] LABS: ALANINE AMINOTRANSFERASE 49 U/L (0-55); ALBUMIN 4.4 GM/DL (3.2-4.5); ALKALINE PHOSPHATASE 55 U/L (40-136); BILIRUBIN,TOTAL 0.4 MG/DL (0.1-1.0); BUN/CREATININE RATIO 16; CALCIUM 9.3 MG/DL (8.5-10.1); CARBON DIOXIDE 24 MMOL/L (21-32); CHLORIDE 104 MMOL/L (98-107); CREATINE KINASE 201 U/L (29-168); CREATININE SERUM 0.92 MG/DL (0.60-1.30); GFR ESTIMATED > 60; GLUCOSE 89 MG/DL (70-105); MAGNESIUM 2.1 MG/DL (1.8-2.4); POTASSIUM 3.6 MMOL/L (3.6-5.0); SODIUM 138 MMOL/L (135-145); TOTAL PROTEIN 7.1 GM/DL (6.4-8.2)
[2017-09-03 13:11] LABS: AMPHETAMINE SCREEN, URINE NEGATIVE (NEGATIVE); BARBITURATE SCREEN URINE NEGATIVE (NEGATIVE); BENZODIAZEPINES SCREEN URINE NEGATIVE (NEGATIVE); CANNABINOID SCREEN, URINE NEGATIVE (NEGATIVE); COCAINE SCREEN URINE NEGATIVE (NEGATIVE); METHADONE STAT NEGATIVE (NEGATIVE); METHAMPHETAMINE SCREEN URINE S NEGATIVE (NEGATIVE); OPIATE SCREEN URINE NEGATIVE (NEGATIVE); OXYCODONE STAT NEGATIVE (NEGATIVE); PROPOXYPHENE STAT NEGATIVE (NEGATIVE); TRICYCLIC ANTIDEPRESSANTS SCRE NEGATIVE (NEGATIVE)
[2017-09-03 13:13] LABS: AMORPHOUS SEDIMENT,UR FEW AMOR URATES /LPF; BACTERIA,URINE FEW /HPF; WBC,URINE 0-2 /HPF
[2017-09-03 13:27] LABS: CREATINE KINASE MB 2.2 NG/ML (<6.6); MYOGLOBIN SERUM 68.6 NG/ML (10.0-92.0); TSH (THYROID ANALYZER) 1.95 UIU/ML (0.35-4.94)
[2017-09-03] MEDS ORDERED: ONDANSETRON 4 MG/2 ML (SDV) Z0FRAN IVP ONE (13:30)
--- NOTE | 2017-09-03 14:32 | ED General ---
General Chief Complaint: Neurological Problems Stated Complaint: SEIZURE Nursing Triage Note: Patient to the ER via ems secondary to seizure activiy. Pt. has a previous seizure hx. and had a witnessed seizure with EMS. Nursing Sepsis Screen: No Definite Risk Allergies and Home Medications Allergies Coded Allergies: cefaclor (Verified Allergy, Unknown, 12/19/13) latex (Verified Allergy, Unknown, 12/19/13) peanut (Verified Allergy, Unknown, 12/19/13) strawberry (Verified Allergy, Unknown, 10/28/16) venom-honey bee (Verified Allergy, Unknown, 12/19/13) Home Medications Levetiracetam 500 Mg Tablet, 500 MG PO BID Prescribed by: OLIVER MANSFIELD on 06/12/17 1222 Levetiracetam 500 Mg Tablet, 1,500 MG PO BID Prescribed by: TRUDY GONZALES on 07/05/17 1424 Ondansetron 4 Mg Tab.rapdis, 4 MG SL Q4H PRN for NAUSEA/VOMITING-1ST LINE Prescribed by: RAMON CHURCH on 06/28/17 0424 Topiramate 200 Mg Tablet, 200 MG PO BID, (Reported) Topiramate 200 Mg Tablet, 200 MG PO BID Prescribed by: OLIVER MANSFIELD on 06/12/17 1222 Past Eunagxp-Bkehpd-Pkcdno Hx Patient Social History Alcohol Use: Denies Use Recreational Drug Use: No Smoking Status: Unknown if Ever Smoked 2nd Hand Smoke Exposure: No Recent Foreign Travel: No Contact w/Someone Who Travel: No Recent Infectious Disease Expo: No Recent Hopitalizations: No Physical Abuse: No Sexual Abuse: No Immunizations Up To Date Tetanus Booster (TDap): More than 5yrs Date of Pneumonia Vaccine: Jun 14, 2011 Date of Influenza Vaccine: Mar 13, 2017 Seasonal Allergies Seasonal Allergies: No Surgeries History of Surgeries: Yes Surgeries: Abdominal, Appendectomy, Bowel Surgery, Breast, Orthopedic Respiratory History of Respiratory Disorde: Yes ("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") Respiratory Disorders: Asthma Currently Using CPAP: No Currently Using BIPAP: No Cardiovascular History of Cardiac Disorders: No Neurological History of Neurological Disord: Yes Neurological Disorders: Seizure Disorder Reproductive System Hx Reproductive Disorders: Yes (CHRONIC PID, CHRONIC PELVIC PAIN; CERVICAL DYSPLASIA-S/P CRYO OF CERVIX X 2) Sexually Transmitted Disease: No Female Reproductive Disorders: Pelvic Inflammatory Dis, Ovarian Cyst Genitourinary History of Genitourinary Disor: No Gastrointestinal History of Gastrointestinal Di: No Musculoskeletal History of Musculoskeletal Dis: No Endocrine History of Endocrine Disorders: No HEENT History of HEENT Disorders: Yes ("VOCAL CORD DYSFUNCTION" SELF REPORTED) Cancer History of Cancer: Yes Cancer: Breast, Cervical, Colon Psychosocial History of Psychiatric Problem: No Suicide Risk Score: 0 Integumentary History of Skin or Integumenta: No Blood Transfusions History of Blood Disorders: No Family Medical History Significant Family History: No Pertinent Family Hx Family Medial History: Patient reports no known family medical history. Physical Exam Vital Signs Vital Signs - First Documented 09/03/17 12:34 Temp 97.8 Pulse 85 Resp 14 B/P (MAP) 137/82 (100) Pulse Ox 98 O2 Delivery Room Air Capillary Refill : Less Than 3 Seconds Progress/Results/Core Measures Suspected Sepsis Recent Fever Within 48 Hours: No Infection Criteria Present: None New/Unexplained Altered Menta: No Sepsis Screen: No Definite Risk Sepsis Diagnosis: SIRS Temperature:97.8 Pulse: 85 Respiratory Rate: 14 Laboratory Tests 09/03/17 12:34: White Blood Count 6.8 Blood Pressure 137 /82 Mean: 100 Laboratory Tests 09/03/17 12:34: Creatinine 0.92, Platelet Count 145, Total Bilirubin 0.4 Results/Orders Lab Results Laboratory Tests Test 09/03/17 12:34 09/03/17 12:54 Range/Units White Blood Count 6.8 4.3-11.0 10^3/uL Red Blood Count 4.24 L 4.35-5.85 10^6/uL Hemoglobin 13.5 11.5-16.0 G/DL Hematocrit 39 35-52 % Mean Corpuscular Volume 91 80-99 FL Mean Corpuscular Hemoglobin 32 25-34 PG Mean Corpuscular Hemoglobin Concent 35 32-36 G/DL Red Cell Distribution Width 12.9 10.0-14.5 % Platelet Count 145 130-400 10^3/uL Mean Platelet Volume 10.1 7.4-10.4 FL Neutrophils (%) (Auto) 62 42-75 % Lymphocytes (%) (Auto) 24 12-44 % Monocytes (%) (Auto) 11 0-12 % Eosinophils (%) (Auto) 3 0-10 % Basophils (%) (Auto) 0 0-10 % Neutrophils # (Auto) 4.2 1.8-7.8 X 10^3 Lymphocytes # (Auto) 1.6 1.0-4.0 X 10^3 Monocytes # (Auto) 0.8 0.0-1.0 X 10^3 Eosinophils # (Auto) 0.2 0.0-0.3 10^3/uL Basophils # (Auto) 0.0 0.0-0.1 10^3/uL Sodium Level 138 135-145 MMOL/L Potassium Level 3.6 3.6-5.0 MMOL/L Chloride Level 104 98-107 MMOL/L Carbon Dioxide Level 24 21-32 MMOL/L Anion Gap 10 5-14 MMOL/L Blood Urea Nitrogen 15 7-18 MG/DL Creatinine 0.92 0.60-1.30 MG/DL Estimat Glomerular Filtration Rate > 60 BUN/Creatinine Ratio 16 Glucose Level 89 70-105 MG/DL Calcium Level 9.3 8.5-10.1 MG/DL Magnesium Level 2.1 1.8-2.4 MG/DL Total Bilirubin 0.4 0.1-1.0 MG/DL Aspartate Amino Transf (AST/SGOT) 28 5-34 U/L Alanine Aminotransferase (ALT/SGPT) 49 0-55 U/L Alkaline Phosphatase 55 40-136 U/L Total Creatine Kinase 201 H 29-168 U/L Creatine Kinase MB 2.2 <6.6 NG/ML Myoglobin 68.6 10.0-92.0 NG/ML Total Protein 7.1 6.4-8.2 GM/DL Albumin 4.4 3.2-4.5 GM/DL TSH [place] Testing 1.95 0.35-4.94 UIU/ML Serum Test, Qualitative NEGATIVE NEGATIVE Serum Alcohol < 10 <10 MG/DL Urine Color YELLOW Urine Clarity VERY CLOUDY H Urine pH 8 5-9 Urine Specific Saline 1.010 L 1.016-1.022 Urine Protein NEGATIVE NEGATIVE Urine Glucose (UA) NEGATIVE NEGATIVE Urine Ketones NEGATIVE NEGATIVE Urine Nitrite NEGATIVE NEGATIVE Urine Bilirubin NEGATIVE NEGATIVE Urine Urobilinogen NORMAL NORMAL MG/DL Urine Leukocyte Esterase 1+ H NEGATIVE Urine RBC (Auto) NEGATIVE NEGATIVE Urine RBC NONE /HPF Urine WBC 0-2 /HPF Urine Squamous Epithelial Cells 5-10 /HPF Urine Crystals NONE /LPF Urine Amorphous Sediment FEW ROSANNE URATES H /LPF Urine Bacteria FEW H /HPF Urine Casts NONE /LPF Urine Mucus NEGATIVE /LPF Urine Culture Indicated YES Urine Opiates Screen NEGATIVE NEGATIVE Urine Oxycodone Screen NEGATIVE NEGATIVE Urine Methadone Screen NEGATIVE NEGATIVE Urine Propoxyphene Screen NEGATIVE NEGATIVE Urine Barbiturates Screen NEGATIVE NEGATIVE Ur Tricyclic Antidepressants Screen NEGATIVE NEGATIVE Urine Phencyclidine Screen NEGATIVE NEGATIVE Urine Amphetamines Screen NEGATIVE NEGATIVE Urine Methamphetamines Screen NEGATIVE NEGATIVE Urine Benzodiazepines Screen NEGATIVE NEGATIVE Urine Cocaine Screen NEGATIVE NEGATIVE Urine Cannabinoids Screen NEGATIVE NEGATIVE My Orders Orders - TRENA HILLS DO Saline Lock/Iv-Start (09/03/17 12:31) Ekg Tracing (09/03/17 12:31) Monitor-Rhythm Ecg Trace Only (09/03/17 12:31) Alcohol (09/03/17 12:31) Cbc With Automated Diff (09/03/17 12:31) Comprehensive Metabolic Panel (09/03/17 12:31) Creatine Kinase (09/03/17 12:31) Creatine Kinase Mb (09/03/17 12:31) Drug Screen Stat (Urine) (09/03/17 12:31) Hcg,Qualitative Serum (09/03/17 12:31) Magnesium (09/03/17 12:31) Thyroid Analyzer (09/03/17 12:31) Ua Culture If Indicated (09/03/17 12:31) Myoglobin Serum (09/03/17 12:31) Saline Lock/Iv-Start (09/03/17 12:31) Lactated Ringers (Lr 1000 Ml Iv Solution (09/03/17 12:31) Ondansetron Injection (Zofran Injectio (09/03/17 12:49) Urine Culture (09/03/17 12:54) Ondansetron Injection (Zofran Injectio (09/03/17 13:30) Medications Given in ED Current Medications Medications Dose Ordered Sig/Sourav Route Start Time Stop Time Status Last Admin Dose Admin Lactated Ringer's 1,000 ml @ 0 mls/hr Q0M ONCE IV 09/03/17 12:31 09/03/17 12:34 DC 09/03/17 12:58 0 MLS/HR Ondansetron HCl 4 mg ONCE ONCE IVP 09/03/17 13:30 09/03/17 13:31 DC 09/03/17 13:39 4 MG Ondansetron HCl 4 mg STK-MED ONCE .ROUTE 09/03/17 12:49 09/03/17 12:53 DC 09/03/17 13:39 4 MG Vital Signs/I&O Vital Sign - Last 12Hours 09/03/17 12:34 Temp 97.8 Pulse 85 Resp 14 B/P (MAP) 137/82 (100) Pulse Ox 98 O2 Delivery Room Air Capillary Refill : Less Than 3 Seconds Blood Pressure Mean: 100 Departure Impression Impression: Primary Impression: Pseudoseizure Disposition: HOME, SELF-CARE Condition: Improved Departure-Patient Inst. Referrals: [facility] Patient Instructions: Seizures, Adult (DC) Add. Discharge Instructions: TAKE YOUR MEDICATIONS PRESCRIBED FOLLOW UP WITH [facility] AND YOUR NEUROLOGIST NEXT WEEK FOR FURTHER CARE All discharge instructions reviewed with patient and/or family. Voiced understanding. TRENA HILLS DO Sep 03, 2017 14:32
[2017-09-03 14:44] VITALS: BP 114/77
== END 2017-09-03 14:48 | disposition home or self-care (01) ==
LOC: EDUNIT# 12:23 → ER 12:24
DX: G40.89 Other seizures (principal); J45.909 Unspecified asthma, uncomplicated; Z85.3 Personal history of malignant neoplasm of breast; Z85.038 Personal history of other malignant neoplasm of large intestine; Z85.41 Personal history of malignant neoplasm of cervix uteri; Z87.42 Personal history of other diseases of the female genital tract; Z90.49 Acquired absence of other specified parts of digestive tract; Z88.1 Allergy status to other antibiotic agents; Z91.040 Latex allergy status
CPT/HCPCS: 36415; 80053; 80306; 80320; 81000; 82550; 82553; 83735; 83874; 84443; 84703; 85025; 87088; 93005; 93041

== ENCOUNTER 2017-09-03 22:28 | Emergency (ER) | payer MEDICAID ==
[~2017-09-03] VITALS: Ht 170.2 cm; Wt 86.4 kg
--- OUTSIDE RECORDS SUMMARY | 2017-09-03 22:33 | XMS REPORT | Continuity of Care Document ---
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
[2017-09-04] MEDS ORDERED: RX-ONDANSETRON 4 MG ODT (ZOFRAN) PPK #4 SL STA (00:37)
--- NOTE | 2017-09-04 00:37 | ED Head Injury ---
General Chief Complaint: Head/Cervical Problems Stated Complaint: HEAD PAIN,SEEN EARLIER FOR SEIZURE Nursing Triage Note: patient reports a headache after having a seizure today Source: patient, old records Exam Limitations: no limitations History of Present Illness Date Seen by Provider: Sep 03, 2017 Time Seen by Provider: 23:30 Initial Comments Patient was seen earlier today after reportedly having a seizure at work. She was worked up in the ER and dismissed home. She now reports that she fell and struck her head on a hard floor during the seizure and has headache accompanied by vomiting. She did not state this history for evaluation on her prior visit. Allergies and Home Medications Allergies Coded Allergies: cefaclor (Verified Allergy, Unknown, 12/19/13) latex (Verified Allergy, Unknown, 12/19/13) peanut (Verified Allergy, Unknown, 12/19/13) strawberry (Verified Allergy, Unknown, 10/28/16) venom-honey bee (Verified Allergy, Unknown, 12/19/13) Home Medications Levetiracetam 500 Mg Tablet, 500 MG PO BID Prescribed by: OLIVER MANSFIELD on 06/12/17 1222 Levetiracetam 500 Mg Tablet, 1,500 MG PO BID Prescribed by: TRUDY GONZALES on 07/05/17 1424 Ondansetron 4 Mg Tab.rapdis, 4 MG SL Q4H PRN for NAUSEA/VOMITING-1ST LINE Prescribed by: RAMON CHURCH on 06/28/17 0424 Topiramate 200 Mg Tablet, 200 MG PO BID, (Reported) Topiramate 200 Mg Tablet, 200 MG PO BID Prescribed by: OLIVER MANSFIELD on 06/12/17 1222 Patient Home Medication List Home Medication List Reviewed: Yes Constitutional: no symptoms reported Eyes: No Symptoms Reported Ears, Nose, Mouth, Throat: no symptoms reported Respiratory: no symptoms reported Cardiovascular: no symptoms reported Gastrointestinal: see HPI Genitourinary: no symptoms reported : No Musculoskeletal: see HPI Skin: no symptoms reported Psychiatric/Neurological: See HPI Endocrine: No Symptoms Reported Past Tmzkmsw-Icypmh-Fdgpeg Hx Patient Social History Alcohol Use: Denies Use Recreational Drug Use: No 2nd Hand Smoke Exposure: No Recent Foreign Travel: No Contact w/Someone Who Travel: No Recent Infectious Disease Expo: No Recent Hopitalizations: No Physical Abuse: No Sexual Abuse: No Immunizations Up To Date Tetanus Booster (TDap): More than 5yrs Date of Pneumonia Vaccine: Jun 14, 2011 Date of Influenza Vaccine: Mar 13, 2017 Seasonal Allergies Seasonal Allergies: No Surgeries History of Surgeries: Yes Surgeries: Abdominal, Appendectomy, Bowel Surgery, Breast, Orthopedic Respiratory History of Respiratory Disorde: Yes ("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") Respiratory Disorders: Asthma Currently Using CPAP: No Currently Using BIPAP: No Cardiovascular History of Cardiac Disorders: No Neurological History of Neurological Disord: Yes Neurological Disorders: Seizure Disorder Reproductive System Hx Reproductive Disorders: Yes (CHRONIC PID, CHRONIC PELVIC PAIN; CERVICAL DYSPLASIA-S/P CRYO OF CERVIX X 2) Sexually Transmitted Disease: No Female Reproductive Disorders: Pelvic Inflammatory Dis, Ovarian Cyst Genitourinary History of Genitourinary Disor: No Gastrointestinal History of Gastrointestinal Di: No Musculoskeletal History of Musculoskeletal Dis: No Endocrine History of Endocrine Disorders: No HEENT History of HEENT Disorders: Yes ("VOCAL CORD DYSFUNCTION" SELF REPORTED) Cancer History of Cancer: Yes Cancer: Breast, Cervical, Colon Psychosocial History of Psychiatric Problem: No Suicide Risk Score: 0 Integumentary History of Skin or Integumenta: No Blood Transfusions History of Blood Disorders: No Family Medical History Significant Family History: No Pertinent Family Hx Family Medial History: Patient reports no known family medical history. Physical Exam Vital Signs Vital Signs - First Documented 09/03/17 09/04/17 22:56 00:51 Temp 98.2 Pulse 62 Resp 18 B/P (MAP) 103/74 (84) Pulse Ox 99 O2 Delivery Room Air Capillary Refill : Less Than 3 Seconds General Appearance: WD/WN, mild distress HEENT: PERRL/EOMI, normal ENT inspection, pharynx normal Neck: non-tender, normal inspection Cardiovascular: regular rate, rhythm, no edema, no murmur Respiratory: lungs clear, normal breath sounds, no respiratory distress, no accessory muscle use Gastrointestinal: normal bowel sounds, non tender, soft Extremities: no pedal edema, other (right arm will not go into full extension at the elbow and elbow is tender. However, patient refuses to relax her arm to determine if there is full passive range of motion.) Psychiatric: alert, oriented x 3 Crainal Nerves: normal hearing, normal speech, PERRL Coordination/Gait: normal finger to nose Motor/Sensory: no motor deficit, no sensory deficit Skin: normal color, warm/dry Progress/Results/Core Measures Results/Orders My Orders Orders - RAMON REYES MD Ct Head Wo (09/03/17 23:44) Elbow, Right, 3 Views (09/03/17 23:44) Rx-Ondansetron Po (Rx-Zofran Po) (09/04/17 00:37) Ketorolac Injection (Toradol Injection) (09/04/17 00:45) Medications Given in ED Current Medications Medications Dose Ordered Sig/Sourav Route Start Time Stop Time Status Last Admin Dose Admin Ketorolac Tromethamine 30 mg ONCE ONCE IM 09/04/17 00:45 09/04/17 00:46 DC 09/04/17 00:48 30 MG Vital Signs/I&O Vital Sign - Last 12Hours 09/03/17 09/04/17 22:56 00:51 Temp 98.2 98.2 Pulse 62 64 Resp 18 18 B/P (MAP) 103/74 (84) 121/98 (84) Pulse Ox 99 100 O2 Delivery Room Air Blood Pressure Mean: 84 Progress Note : Progress Note CT demonstrated no acute abnormalities. Patient also complained of right elbow pain and inability to completely straighten the right elbow. X-rays of the right elbow were unremarkable. Patient received Zofran for nausea. A Toradol injection. Diagnostic Imaging Diagonstic Imaging: CT Plain Films/CT/US/NM/MRI: head Comments CT head viewed by me and stat rad report reviewed. No acute injuries identified. Plain Films/CT/US/NM/MRI: elbow Comments Right elbow x-ray viewed by me and report not yet available. No acute injuries identified. Departure Impression Impression: Primary Impression: Fall on same level Qualified Codes: W18.30XA - Fall on same level, unspecified, initial encounter Additional Impressions: Seizure-like activity Nausea & vomiting Qualified Codes: R11.2 - Nausea with vomiting, unspecified Acute headache Qualified Codes: R51 - Headache Disposition: 01 HOME, SELF-CARE Condition: Improved Departure-Patient Inst. Decision time for Depature: 00:39 Referrals: NO,LOCAL PHYSICIAN (PCP/Family) Primary Care Physician Patient Instructions: NO INSTRUCTIONS GIVEN Add. Discharge Instructions: Dissolve Zofran (ondansetron) under the tongue every 4 hours as needed for nausea and vomiting. Start with a clear liquid diet and gradually advance your diet with small quantities of bland food as tolerated. You may take Aleve (naproxen) up to 500 milligrams twice daily for headache or ibuprofen up to 600 mg every 6 hours as needed. Follow-up with your primary care via and/or neurologist as soon as possible. Return to care if symptoms worsen. All discharge instructions reviewed with patient and/or family. Voiced understanding. RAMON REYES MD Sep 04, 2017 00:37
[2017-09-04] MEDS ORDERED: KETOROLAC 30 MG/ML VIAL IM ONE (00:45)
[2017-09-04 00:51] VITALS: BP 121/98
--- NOTE | 2017-09-04 07:44 | Diagnostic Imaging Report ---
INDICATION: Seizure, fall right elbow pain. EXAMINATION: Right elbow 09/04/2017. FINDINGS: 3 views of the right elbow demonstrate a questionable lucency along the radial head best seen on lateral view. Very minimal elevation of the anterior fat pad is suspected. No dislocations appreciated. Remaining osseous structures unremarkable. IMPRESSION: 1. Questionable nondisplaced fracture line along the radial head as noted above. A short-term interval followup in 7-10 days recommended. Report was faxed to [facility] ER by lisa at 7:47 am. Dictated by: Dictated on workstation # [id number]
--- NOTE | 2017-09-04 07:46 | Diagnostic Imaging Report ---
PROCEDURE: CT head without contrast. TECHNIQUE: Multiple contiguous axial images were obtained through the brain without the use of intravenous contrast. INDICATION: Headache and seizures. EXAMINATION: CT brain without contrast, 09/03/2017. COMPARISON: 06/26/17. FINDINGS: Multiple axial images of the brain without contrast. There is no evidence for acute hemorrhage or infarct. There is no mass, mass effect, midline shift or hydrocephalus. The paranasal sinuses and mastoid air cells demonstrate no acute abnormality. IMPRESSION: No acute intracranial process. Findings agree with the preliminary report. Dictated by: Dictated on workstation # [id number]
== END 2017-09-04 00:50 | disposition home or self-care (01) ==
LOC: EDUNIT# 22:28 → ER 22:29
DX: R51 Headache (principal); R25.8 Other abnormal involuntary movements; R11.2 Nausea with vomiting, unspecified; G40.909 Epilepsy, unspecified, not intractable, without status epilepticus; J45.909 Unspecified asthma, uncomplicated; Z87.42 Personal history of other diseases of the female genital tract; Z85.3 Personal history of malignant neoplasm of breast; Z85.038 Personal history of other malignant neoplasm of large intestine; Z85.41 Personal history of malignant neoplasm of cervix uteri; Z90.49 Acquired absence of other specified parts of digestive tract; Z88.1 Allergy status to other antibiotic agents; W18.30XA Fall on same level, unspecified, initial encounter
CPT/HCPCS: 70450; 73080

== ENCOUNTER 2017-09-05 16:40 | Emergency (ER) | payer MEDICAID ==
[~2017-09-05] VITALS: Ht 180.3 cm; Wt 92.5 kg
--- OUTSIDE RECORDS SUMMARY | 2017-09-05 16:45 | XMS REPORT | Continuity of Care Document ---
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
--- NOTE | 2017-09-05 17:54 | ED Upper Extremity ---
General Chief Complaint: Orthopedic Problems Stated Complaint: R ELBOW DISLOCATED Nursing Triage Note: PT AMBULATED TO RM 4 W/O DIFFICULTIES. PT STATED SHE WAS SEEN IN ED FOR AN ELBOW INJURY RECENTLY AND WAS TOLD IT WAS NOT BROKEN. PT STATES SHE RECEIVED A CALL THAT THE RADIOLOGIST READ THE SCAN AND STATED THE ELBOW WAS BROKEN AND THE PATIENT NEEDED TO BE RECHECKED. PT STATES SHE WANTED TO SEE DR DUONG BUT NEEDS A REFERRAL BUT DOES NOT HAVE A PCP. PT STATED SHE TRIED TO GET AN APPT AT [facility] BUT COULDNT BE SEEN UNTIL 09/30. Nursing Sepsis Screen: No Definite Risk Source: patient, old records History of Present Illness Date Seen by Provider: Sep 05, 2017 Allergies and Home Medications Allergies Coded Allergies: cefaclor (Verified Allergy, Unknown, 12/19/13) latex (Verified Allergy, Unknown, 12/19/13) peanut (Verified Allergy, Unknown, 12/19/13) strawberry (Verified Allergy, Unknown, 10/28/16) venom-honey bee (Verified Allergy, Unknown, 12/19/13) Home Medications Levetiracetam 500 Mg Tablet, 500 MG PO BID Prescribed by: OLIVER MANSFIELD on 06/12/17 1222 Levetiracetam 500 Mg Tablet, 1,500 MG PO BID Prescribed by: TRUDY GONZALES on 07/05/17 1424 Ondansetron 4 Mg Tab.rapdis, 4 MG SL Q4H PRN for NAUSEA/VOMITING-1ST LINE Prescribed by: RAMON CHURCH on 06/28/17 0424 Topiramate 200 Mg Tablet, 200 MG PO BID, (Reported) Topiramate 200 Mg Tablet, 200 MG PO BID Prescribed by: OLIVER MANSFIELD on 06/12/17 1222 Past Hgyblkw-Ckjiku-Tyrvcu Hx Patient Social History Alcohol Use: Denies Use Recreational Drug Use: No 2nd Hand Smoke Exposure: No Recent Foreign Travel: No Contact w/Someone Who Travel: No Recent Infectious Disease Expo: No Recent Hopitalizations: No Physical Abuse: No Sexual Abuse: No Immunizations Up To Date Tetanus Booster (TDap): More than 5yrs Date of Pneumonia Vaccine: Jun 14, 2011 Date of Influenza Vaccine: Mar 13, 2017 Seasonal Allergies Seasonal Allergies: No Surgeries History of Surgeries: Yes Surgeries: Abdominal, Appendectomy, Bowel Surgery, Breast, Orthopedic Respiratory History of Respiratory Disorde: Yes ("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") Respiratory Disorders: Asthma Currently Using CPAP: No Currently Using BIPAP: No Cardiovascular History of Cardiac Disorders: No Neurological History of Neurological Disord: Yes Neurological Disorders: Seizure Disorder Reproductive System Hx Reproductive Disorders: Yes (CHRONIC PID, CHRONIC PELVIC PAIN; CERVICAL DYSPLASIA-S/P CRYO OF CERVIX X 2) Sexually Transmitted Disease: No Female Reproductive Disorders: Pelvic Inflammatory Dis, Ovarian Cyst Genitourinary History of Genitourinary Disor: No Gastrointestinal History of Gastrointestinal Di: No Musculoskeletal History of Musculoskeletal Dis: No Endocrine History of Endocrine Disorders: No HEENT History of HEENT Disorders: Yes ("VOCAL CORD DYSFUNCTION" SELF REPORTED) Cancer History of Cancer: Yes Cancer: Breast, Cervical, Colon Psychosocial History of Psychiatric Problem: No Suicide Risk Score: 0 Integumentary History of Skin or Integumenta: No Blood Transfusions History of Blood Disorders: No Family Medical History Significant Family History: No Pertinent Family Hx Family Medial History: Patient reports no known family medical history. Physical Exam Vital Signs Vital Signs - First Documented 09/05/17 17:33 Temp 98.4 Pulse 89 Resp 16 B/P (MAP) 112/86 (95) Pulse Ox 96 O2 Delivery Room Air Capillary Refill : Less Than 3 Seconds Progress/Results/Core Measures Results/Orders My Orders Orders - TRENA HILLS DO Ct Extremity Upper Right Wo (09/05/17 17:36) Vital Signs/I&O Vital Sign - Last 12Hours 09/05/17 17:33 Temp 98.4 Pulse 89 Resp 16 B/P (MAP) 112/86 (95) Pulse Ox 96 O2 Delivery Room Air Blood Pressure Mean: [address] RIGHT ELBOW--NORMAL, NO FRACTURE OR SOFT TISSUE SWELLING OR EFFUSION--PER RADIOLOGIST REPORT @ 1805 Reviewed: Reviewed by Me Departure Impression Impression: Primary Impression: Contusion of right elbow Disposition: 01 HOME, SELF-CARE Condition: Stable Departure-Patient Inst. Referrals: NO,LOCAL PHYSICIAN (PCP/Family) Primary Care Physician Patient Instructions: Contusion (DC) Add. Discharge Instructions: TYLENOL 1 GRAM EVERY 6 HOURS NEEDED FOR PAIN FOLLOW UP WITH [facility] PREVIOUSLY INSTRUCTED. All discharge instructions reviewed with patient and/or family. Voiced understanding. Work/School Note: Work Release Form Date Seen in the Emergency Department: Sep 05, 2017 Return to Work: Sep 05, 2017 Restrictions: No Restrictions TRENA HILLS DO Sep 05, 2017 17:54
--- NOTE | 2017-09-05 18:00 | Diagnostic Imaging Report ---
PROCEDURE: CT right upper extremity without contrast. TECHNIQUE: Multiple contiguous axial images were obtained through the right upper extremity without the use of intravenous contrast. Sagittal and coronal reformations were then performed. INDICATION: Elbow pain. FINDINGS: The alignment of elbow is normal. There is no fracture or dislocation. Soft tissues are unremarkable. IMPRESSION: No acute fracture or dislocation. Dictated by: Dictated on workstation # [id number]
[2017-09-05 18:19] VITALS: BP 112/86
== END 2017-09-05 18:19 | disposition home or self-care (01) ==
LOC: EDUNIT# 16:40 → ER 16:41
DX: S50.01XA Contusion of right elbow, initial encounter (principal); J45.909 Unspecified asthma, uncomplicated; G40.909 Epilepsy, unspecified, not intractable, without status epilepticus; Z87.448 Personal history of other diseases of urinary system; Z85.3 Personal history of malignant neoplasm of breast; Z85.038 Personal history of other malignant neoplasm of large intestine; Z91.040 Latex allergy status; Z91.030 Bee allergy status; Z91.010 Allergy to peanuts; Z91.018 Allergy to other foods; Z88.1 Allergy status to other antibiotic agents; Z90.49 Acquired absence of other specified parts of digestive tract; X58.XXXA Exposure to other specified factors, initial encounter
CPT/HCPCS: 73200

== ENCOUNTER 2017-09-17 19:52 | Observation (INO) | payer MEDICAID ==
[~2017-09-17] VITALS: Ht 180.3 cm; Wt 95.4 kg
--- OUTSIDE RECORDS SUMMARY | 2017-09-17 19:58 | XMS REPORT | Continuity of Care Document ---
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
[2017-09-17] MEDS ORDERED: methylPREDNISolone 125 MG (Solu-MEDROL) VIAL IV STA (20:07)
[2017-09-17] MEDS ORDERED: RT-ALBUTEROL/IPRATROPIUM 3 ML (DUONEB) VIAL ONE (20:09)
[2017-09-17] MEDS ORDERED: DEXAMETHASONE 4 MG/ML SDV (DECADRON) IH ONE (20:15)
[2017-09-17] MEDS ORDERED: RT-ALBUTEROL/IPRATROPIUM 3 ML (DUONEB) VIAL INH ONE (20:15)
[2017-09-17] MEDS ORDERED: ONDANSETRON 4 MG/2 ML (SDV) Z0FRAN ONE (20:22)
[2017-09-17] MEDS ORDERED: RT-epiNEPHrine (RACEMIC) 2.25% 0.5 ML VIAL INH ONE (20:30)
[2017-09-17] MEDS ORDERED: ONDANSETRON 4 MG/2 ML (SDV) Z0FRAN IVP ONE (20:30)
[2017-09-17 20:38] LABS: BASOPHILS % (AUTO) 0 % (0-10); EOSINOPHILS # (AUTO) 0.2 10^3/uL (0.0-0.3); EOSINOPHILS % (AUTO) 2 % (0-10); HEMATOCRIT 42 % (35-52); LYMPHOCYTES # (AUTO) 3.1 X 10^3 (1.0-4.0); LYMPHOCYTES % (AUTO) 23 % (12-44); MEAN CORPUSCULAR HEMOGLOBIN 33 PG (25-34); MEAN CORPUSCULAR HGB CONC 36 G/DL (32-36); MEAN CORPUSCULAR VOLUME 91 FL (80-99); MEAN PLATELET VOLUME 9.9 FL (7.4-10.4); MONOCYTES # (AUTO) 1.1 X 10^3 (0.0-1.0); MONOCYTES % (AUTO) 8 % (0-12); NEUTROPHILS # (AUTO) 9.2 X 10^3 (1.8-7.8); NEUTROPHILS % (AUTO) 68 % (42-75); PLATELET COUNT 223 10^3/uL (130-400); RED BLOOD COUNT 4.59 10^6/uL (4.35-5.85); RED CELL DISTRIBUTION WIDTH 12.6 % (10.0-14.5); WHITE BLOOD COUNT 13.6 10^3/uL (4.3-11.0)
[2017-09-17 20:39] LABS: ABG BASE EXCESS 0.3 MMOL/L (-2.5-2.5); ABG OXYGEN SATURATION 100 % (94-100); ABG PCO2 51 MMHG (35-45); ABG PO2 202 MMHG (79-93); ABG TCO2 27.1 MMOL/L (21.0-31.0)
[2017-09-17 20:41] LABS: ABG PH 7.32 (7.37-7.43); ALLENS TEST YES-POS; INSPIRED O2 SEE ORDER COMMENT; PATIENT TEMP 98.8; VENTILATOR NO
[2017-09-17 20:48] LABS: INR 0.8 (0.8-1.4); PROTHROMBIN TIME PATIENT 11.5 SEC (12.2-14.7)
[2017-09-17 20:58] LABS: ALANINE AMINOTRANSFERASE 45 U/L (0-55); ALBUMIN 4.6 GM/DL (3.2-4.5); ALKALINE PHOSPHATASE 70 U/L (40-136); BILIRUBIN,TOTAL 0.3 MG/DL (0.1-1.0); BUN/CREATININE RATIO 16; CALCIUM 9.5 MG/DL (8.5-10.1); CARBON DIOXIDE 16 MMOL/L (21-32); CHLORIDE 107 MMOL/L (98-107); CREATININE SERUM 1.06 MG/DL (0.60-1.30); GFR ESTIMATED 59; GLUCOSE 93 MG/DL (70-105); POTASSIUM 4.1 MMOL/L (3.6-5.0); SODIUM 140 MMOL/L (135-145); TOTAL PROTEIN 9.3 GM/DL (6.4-8.2)
--- NOTE | 2017-09-17 21:27 | Diagnostic Imaging Report ---
INDICATION: Shortness of air and fever. COMPARISON: 06/12/2017. FINDINGS: Very low lung volumes due to poor inspiratory technique. There are hazy opacities in the lung bases which could be due to bronchovascular crowding from low lung volumes and overlying breast shadow. No pleural effusion or pneumothorax. Normal cardiomediastinal silhouette. IMPRESSION: Hazy opacity of the lung bases could be artifactual due to low lung volumes, portable technique and summation shadow of the patient's breast. If there remains high clinical suspicion for pneumonia, PA and lateral chest radiographs of the chest could be performed to better evaluate the lung bases. Dictated by: Dictated on workstation # [id number]
[2017-09-17] MEDS ORDERED: DIAZEPAM INJ 10 MG/2 ML (VALIUM) SYR IV ONE ×2 (21:45→22:15)
[2017-09-17 22:01] LABS: BILIRUBIN,URINE NEGATIVE (NEGATIVE); CLARITY,URINE SLIGHTLY CLOUDY; COLOR,URINE YELLOW; GLUCOSE, URINE (UA) NEGATIVE (NEGATIVE); KETONES,URINE NEGATIVE (NEGATIVE); LEUKOCYTE ESTERASE ,URINE NEGATIVE (NEGATIVE); NITRITE,URINE NEGATIVE (NEGATIVE); PH,URINE 5 (5-9); PROTEIN,URINE NEGATIVE (NEGATIVE); UROBILINOGEN,URINE NORMAL (NORMAL)
[2017-09-17 22:12] LABS: BACTERIA,URINE NEGATIVE /HPF; RBC,URINE 0-2 /HPF; WBC,URINE 0-2 /HPF
[2017-09-17] MEDS ORDERED: toPIRamate 100 MG (TOPAMAX) TAB PO ONE (22:15)
[2017-09-17] MEDS ORDERED: LEVETIRACETAM 500 MG (KEPPRA) TAB PO ONE (22:15)
[2017-09-17] MEDS ORDERED: RT-SODIUM CHL INHALATION 3 ML VIAL IH ONE (23:15)
[2017-09-17] MEDS ORDERED: LEVOFLOXACIN 500 MG/100 ML IV 100 ML IV ONE (23:45)
[2017-09-17 23:46] LABS: AMPHETAMINE SCREEN, URINE NEGATIVE (NEGATIVE); BARBITURATE SCREEN URINE NEGATIVE (NEGATIVE); BENZODIAZEPINES SCREEN URINE NEGATIVE (NEGATIVE); CANNABINOID SCREEN, URINE NEGATIVE (NEGATIVE); COCAINE SCREEN URINE NEGATIVE (NEGATIVE); METHADONE STAT NEGATIVE (NEGATIVE); METHAMPHETAMINE SCREEN URINE S NEGATIVE (NEGATIVE); OPIATE SCREEN URINE NEGATIVE (NEGATIVE); OXYCODONE STAT NEGATIVE (NEGATIVE); PROPOXYPHENE STAT NEGATIVE (NEGATIVE); TRICYCLIC ANTIDEPRESSANTS SCRE NEGATIVE (NEGATIVE)
[2017-09-18] VITALS (7 sets, daily range): BP systolic 100–120; BP diastolic 54–76
--- OUTSIDE RECORDS SUMMARY | 2017-09-18 00:26 | XMS REPORT | Continuity of Care Document ---
Author Author [employer] Organization [facility] Address Unknown Phone Unavailable Care Team Providers [facility] Name Role Phone [employer] Unavailable Unavailable Problems Medications Allergies, Adverse Reactions, Alerts Immunizations Results Vital Signs Encounters Procedures Plan of Care Social History Assessment and Plan Family History Advance Directives Functional Status
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
--- NOTE | 2017-09-18 00:40 | ED Respiratory ---
General Chief Complaint: Respiratory Problems Stated Complaint: LARYNGOSPASM; ANXIETY; BRONCHITIS Nursing Triage Note: PT REPORTS SOA AND FEVER SINCE YESTERDAY. SHE STATES SHE HAS HAD FEVER AND COUGH. 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 Source: patient, old records History of Present Illness Date Seen by Provider: Sep 17, 2017 Initial Comments PT ARRIVES VIA POV FROM HOME C/O SHORTNESS OF BREATH, WHEEZING AND COUGH C/O FEVER UP TO 100--STATES SHE TOOK IBUPROFEN AND TYLENOL AT 1800 STATES SHE HAD AN ALBUTEROL NEB TREATMENT JUST PRIOR TO ARRIVAL WITHOUT RELIEF Allergies and Home Medications Allergies Coded Allergies: cefaclor (Verified Allergy, Unknown, 12/19/13) latex (Verified Allergy, Unknown, 12/19/13) peanut (Verified Allergy, Unknown, 12/19/13) strawberry (Verified Allergy, Unknown, 10/28/16) venom-honey bee (Verified Allergy, Unknown, 12/19/13) Home Medications Levetiracetam 500 Mg Tablet, 500 MG PO BID Prescribed by: OLIVER MANSFIELD on 06/12/17 1222 Levetiracetam 500 Mg Tablet, 1,500 MG PO BID Prescribed by: TRUDY GONZALES on 07/05/17 1424 Ondansetron 4 Mg Tab.rapdis, 4 MG SL Q4H PRN for NAUSEA/VOMITING-1ST LINE Prescribed by: RAMON CHURCH on 06/28/17 0424 Topiramate 200 Mg Tablet, 200 MG PO BID, (Reported) Topiramate 200 Mg Tablet, 200 MG PO BID Prescribed by: OLIVER MANSFIELD on 06/12/17 1222 Past Phcrcpw-[id number]-Krrzag Hx Patient Social History Alcohol Use: Denies Use Recreational Drug Use: No Smoking Status: Never a Smoker 2nd Hand Smoke Exposure: No Recent Foreign Travel: No Contact w/Someone Who Travel: No Recent Infectious Disease Expo: No Recent Hopitalizations: No Immunizations Up To Date Tetanus Booster (TDap): More than 5yrs Date of Pneumonia Vaccine: Jun 14, 2011 Date of Influenza Vaccine: Mar 13, 2017 Seasonal Allergies Seasonal Allergies: No Past Medical History Surgeries: Yes Abdominal, Appendectomy, Bowel Surgery, Breast, Orthopedic Respiratory: Yes ("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") Asthma Currently Using CPAP: No Currently Using BIPAP: No Cardiac: No Neurological: Yes Seizure Disorder Reproductive Disorders: Yes (CHRONIC PID, CHRONIC PELVIC PAIN; CERVICAL DYSPLASIA-S/P CRYO OF CERVIX X 2) Female Reproductive Disorders: Pelvic Inflammatory Dis, Ovarian Cyst Sexually Transmitted Disease: No Genitourinary: No Gastrointestinal: No Musculoskeletal: No Endocrine: No HEENT: Yes ("VOCAL CORD DYSFUNCTION" SELF REPORTED) Cancer: Yes Breast, Cervical, Colon Psychosocial: No Integumentary: No Blood Disorders: No Family Medical History Patient reports no known family medical history. No Pertinent Family Hx Physical Exam Vital Signs Vital Signs - First Documented 09/17/17 09/17/17 20:15 20:20 Temp 98.8 Pulse 127 Resp 20 B/P (MAP) 138/74 (95) Pulse Ox 98 O2 Delivery Nasal Cannula O2 Flow Rate 2.00 Capillary Refill : Less Than 3 Seconds General Appearance: other (EXTREMELY DRAMATIC--TALKS IN "FORCED" "WHEEZING/ WHISPER". PT WITH PURPOSEFUL "LABORED" BREATHING WITH NON-NATURAL, MOVEMENTS OF CHEST AND UPPER BODY TO SIMULATE WHEEZING AND LABORED. THIS BEHAVIOR STOPS WHEN STAFF LEAVE ROOM, AND IS EXAGGERATED WHEN STAFF ENTER ROOM, AND AFTER FATHER ARRIVES. ) Focused Exam Lactate Level 09/17/17 20:20: Lactic Acid Level 1.15 Lactic Acid Level Laboratory Tests Test 09/17/17 20:20 Lactic Acid Level 1.15 MMOL/L (0.50-2.00) Progress/Results/Core Measures Suspected Sepsis Recent Fever Within 48 Hours: No Infection Criteria Present: None New/Unexplained Altered Menta: No Sepsis Screen: No Definite Risk Sepsis Diagnosis: SIRS Temperature:98.8 Pulse: 127 Respiratory Rate: 20 Laboratory Tests 09/17/17 20:20: White Blood Count 13.6H Blood Pressure 138 /74 Mean: 95 09/17/17 20:20: Lactic Acid Level 1.15 Laboratory Tests 09/17/17 20:20: Creatinine 1.06, INR Comment 0.8, Platelet Count 223, Total Bilirubin 0.3 Results/Orders Lab Results Laboratory Tests Test 09/17/17 20:20 09/17/17 21:50 Range/Units White Blood Count 13.6 H 4.3-11.0 10^3/uL Red Blood Count 4.59 4.35-5.85 10^6/uL Hemoglobin 15.0 11.5-16.0 G/DL Hematocrit 42 35-52 % Mean Corpuscular Volume 91 80-99 FL Mean Corpuscular Hemoglobin 33 25-34 PG Mean Corpuscular Hemoglobin Concent 36 32-36 G/DL Red Cell Distribution Width 12.6 10.0-14.5 % Platelet Count 223 130-400 10^3/uL Mean Platelet Volume 9.9 7.4-10.4 FL Neutrophils (%) (Auto) 68 42-75 % Lymphocytes (%) (Auto) 23 12-44 % Monocytes (%) (Auto) 8 0-12 % Eosinophils (%) (Auto) 2 0-10 % Basophils (%) (Auto) 0 0-10 % Neutrophils # (Auto) 9.2 H 1.8-7.8 X 10^3 Lymphocytes # (Auto) 3.1 1.0-4.0 X 10^3 Monocytes # (Auto) 1.1 H 0.0-1.0 X 10^3 Eosinophils # (Auto) 0.2 0.0-0.3 10^3/uL Basophils # (Auto) 0.0 0.0-0.1 10^3/uL Prothrombin Time 11.5 L 12.2-14.7 SEC INR Comment 0.8 0.8-1.4 Activated Partial Thromboplast Time 30 24-35 SEC Blood Gas Puncture Site LT RAD Blood Gas Patient Temperature 98.8 Arterial Blood pH 7.32 *L 7.37-7.43 Arterial Blood Partial Pressure CO2 51 H 35-45 MMHG Arterial Blood Partial Pressure O2 202 H 79-93 MMHG Arterial Blood HCO3 26 23-27 MMOL/L Arterial Blood Total CO2 27.1 21.0-31.0 MMOL/L Arterial Blood Oxygen Saturation 100 94-100 % Arterial Blood Base Excess 0.3 -2.5-2.5 MMOL/L Reinaldo Test YES-POS Blood Gas Ventilator Setting NO Blood Gas Inspired Oxygen SEE ORDER COMMENT Sodium Level 140 135-145 MMOL/L Potassium Level 4.1 3.6-5.0 MMOL/L Chloride Level 107 98-107 MMOL/L Carbon Dioxide Level 16 L 21-32 MMOL/L Anion Gap 17 H 5-14 MMOL/L Blood Urea Nitrogen 17 7-18 MG/DL Creatinine 1.06 0.60-1.30 MG/DL Estimat Glomerular Filtration Rate 59 BUN/Creatinine Ratio 16 Glucose Level 93 70-105 MG/DL Lactic Acid Level 1.15 0.50-2.00 MMOL/L Calcium Level 9.5 8.5-10.1 MG/DL Magnesium Level 3.0 H 1.8-2.4 MG/DL Total Bilirubin 0.3 0.1-1.0 MG/DL Aspartate Amino Transf (AST/SGOT) 26 5-34 U/L Alanine Aminotransferase (ALT/SGPT) 45 0-55 U/L Alkaline Phosphatase 70 40-136 U/L Troponin I < 0.30 <0.30 NG/ML B-Type Natriuretic Peptide < 10.0 <100.0 PG/ML Total Protein 9.3 H 6.4-8.2 GM/DL Albumin 4.6 H 3.2-4.5 GM/DL Serum Test, Qualitative NEGATIVE NEGATIVE Urine Color YELLOW Urine Clarity SLIGHTLY CLOUDY Urine pH 5 5-9 Urine Specific [place] 1.025 H 1.016-1.022 Urine Protein NEGATIVE NEGATIVE Urine Glucose (UA) NEGATIVE NEGATIVE Urine Ketones NEGATIVE NEGATIVE Urine Nitrite NEGATIVE NEGATIVE Urine Bilirubin NEGATIVE NEGATIVE Urine Urobilinogen NORMAL NORMAL MG/DL Urine Leukocyte Esterase NEGATIVE NEGATIVE Urine RBC (Auto) 3+ H NEGATIVE Urine RBC 0-2 /HPF Urine WBC 0-2 /HPF Urine Squamous Epithelial Cells 5-10 /HPF Urine Renal Epithelial Cells NONE /HPF Urine Crystals NONE /LPF Urine Bacteria NEGATIVE /HPF Urine Casts NONE /LPF Urine Mucus NEGATIVE /LPF Urine Culture Indicated NO Urine Opiates Screen NEGATIVE NEGATIVE Urine Oxycodone Screen NEGATIVE NEGATIVE Urine Methadone Screen NEGATIVE NEGATIVE Urine Propoxyphene Screen NEGATIVE NEGATIVE Urine Barbiturates Screen NEGATIVE NEGATIVE Ur Tricyclic Antidepressants Screen NEGATIVE NEGATIVE Urine Phencyclidine Screen NEGATIVE NEGATIVE Urine Amphetamines Screen NEGATIVE NEGATIVE Urine Methamphetamines Screen NEGATIVE NEGATIVE Urine Benzodiazepines Screen NEGATIVE NEGATIVE Urine Cocaine Screen NEGATIVE NEGATIVE Urine Cannabinoids Screen NEGATIVE NEGATIVE My Orders Orders - REINIER,TRENA K DO Saline Lock/Iv-Start (09/17/17 20:07) Ekg Tracing (09/17/17 20:07) O2 (09/17/17 20:07) Monitor-Rhythm Ecg Trace Only (09/17/17 20:07) Arterial Blood Gas (09/17/17 20:07) BNP (09/17/17 20:07) Cbc With Automated Diff (09/17/17 20:07) Comprehensive Metabolic Panel (09/17/17 20:07) Hcg,Qualitative Serum (09/17/17 20:07) Lactic Acid Analyzer (09/17/17 20:07) Magnesium (09/17/17 20:07) Protime With Inr (09/17/17 20:07) Partial Thromboplastin Time (09/17/17 20:07) Troponin I (09/17/17 20:07) Ua Culture If Indicated (09/17/17 20:07) Blood Culture (09/17/17 20:07) Chest 1 View, Ap/Pa Only (09/17/17 20:07) Albuterol/Ipra Inhalation Soln (Duoneb I (09/17/17 20:15) Dexamethasone Injection (Decadron Inject (09/17/17 20:15) Rt Request For Service (09/17/17 20:07) Svn Sm Volume Nebulizer Rt-Rfs (09/17/17 20:07) Methylprednisolone Sod Succ (Solu-Medrol (09/17/17 20:07) Albuterol/Ipra Inhalation Soln (Duoneb I (09/17/17 20:09) Rt Epinephrine (Racemic Epinephrine 2.25 (09/17/17 20:30) Svn Sm Volume Nebulizer Rt-Rfs (09/17/17 20:17) Ondansetron Injection (Zofran Injectio (09/17/17 20:30) Ondansetron Injection (Zofran Injectio (09/17/17 20:22) Diazepam Injection (Valium Injection) (09/17/17 21:45) Ct Angio Chest W (09/17/17 21:34) Ct Neck (Soft Tissue) W (09/17/17 21:34) Diazepam Injection (Valium Injection) (09/17/17 22:15) Levetiracetam Tablet (Keppra Tablet) (09/17/17 22:15) Topiramate Tablet (Topamax Tablet) (09/17/17 22:15) Drug Screen Stat (Urine) (09/17/17 22:34) Sodium Chl Inhalation (Rt-Sodium Chl Inh (09/17/17 23:15) Svn Sm Volume Nebulizer Rt-Rfs (09/17/17 23:09) Medications Given in ED Current Medications Medications Dose Ordered Sig/Sourav Route Start Time Stop Time Status Last Admin Dose Admin Albuterol/ Ipratropium 3 ml STK-MED ONCE .ROUTE 09/17/17 20:09 09/17/17 20:13 DC 09/17/17 20:18 3 ML Dexamethasone Sodium Phosphate 20 mg ONCE ONCE IH 09/17/17 20:15 09/17/17 20:16 DC 09/17/17 20:18 20 MG Diazepam 2.5 mg ONCE ONCE IV 09/17/17 21:45 09/17/17 22:10 DC 09/17/17 22:15 2.5 MG Epinephrine 0.5 ml ONCE ONCE INH 09/17/17 20:30 09/17/17 20:31 DC 09/17/17 20:33 0.5 ML Levetiracetam 500 mg ONCE ONCE PO 09/17/17 22:15 09/17/17 22:16 DC 09/17/17 22:50 500 MG Ondansetron HCl 4 mg ONCE ONCE IVP 09/17/17 20:30 09/17/17 20:31 DC 09/17/17 20:29 4 MG Vital Signs/I&O 09/17/17 09/17/17 09/17/17 09/17/17 20:15 20:20 20:21 20:35 Temp 98.8 Pulse 127 Resp 20 B/P (MAP) 138/74 (95) Pulse Ox 98 98 97 O2 Delivery Nasal Cannula Room Air Room Air FI02 O2 Flow Rate 2.00 6.00 Capillary Refill : Less Than 3 Seconds Blood Pressure Mean: 95 Departure Departure-Patient Inst. Referrals: NO,LOCAL PHYSICIAN (PCP/Family) Primary Care Physician TRENA HILLS DO Sep 18, 2017 00:40
[2017-09-18] MEDS ORDERED: DIAZEPAM INJ 10 MG/2 ML (VALIUM) SYR IV PRN (01:15)
[2017-09-18] MEDS: methylPREDNISolone 125 MG (Solu-MEDROL) VIAL IVP SCH ×2 (03:07→08:07)
[2017-09-18] MEDS ORDERED: RT-ALBUTEROL/IPRATROPIUM 3 ML (DUONEB) VIAL INH PRN (04:30)
[2017-09-18 05:15] LABS: BASOPHILS % (AUTO) 0 % (0-10); EOSINOPHILS % (AUTO) 0 % (0-10); HEMATOCRIT 41 % (35-52); HEMOGLOBIN 14.1 G/DL (11.5-16.0); LYMPHOCYTES # (AUTO) 0.8 X 10^3 (1.0-4.0); LYMPHOCYTES % (AUTO) 8 % (12-44); MEAN CORPUSCULAR HEMOGLOBIN 32 PG (25-34); MEAN CORPUSCULAR HGB CONC 35 G/DL (32-36); MEAN CORPUSCULAR VOLUME 91 FL (80-99); MEAN PLATELET VOLUME 9.9 FL (7.4-10.4); MONOCYTES # (AUTO) 0.1 X 10^3 (0.0-1.0); MONOCYTES % (AUTO) 1 % (0-12); NEUTROPHILS # (AUTO) 10.2 X 10^3 (1.8-7.8); NEUTROPHILS % (AUTO) 92 % (42-75); PLATELET COUNT 192 10^3/uL (130-400); RED BLOOD COUNT 4.48 10^6/uL (4.35-5.85); RED CELL DISTRIBUTION WIDTH 12.3 % (10.0-14.5); WHITE BLOOD COUNT 11.1 10^3/uL (4.3-11.0)
[2017-09-18 05:29] LABS: ALANINE AMINOTRANSFERASE 39 U/L (0-55); ALBUMIN 4.5 GM/DL (3.2-4.5); ALKALINE PHOSPHATASE 59 U/L (40-136); BILIRUBIN,TOTAL 0.4 MG/DL (0.1-1.0); BUN/CREATININE RATIO 18; CALCIUM 9.2 MG/DL (8.5-10.1); CARBON DIOXIDE 21 MMOL/L (21-32); CHLORIDE 108 MMOL/L (98-107); CREATININE SERUM 0.79 MG/DL (0.60-1.30); GFR ESTIMATED > 60; GLUCOSE 146 MG/DL (70-105); POTASSIUM 4.1 MMOL/L (3.6-5.0); SODIUM 136 MMOL/L (135-145); TOTAL PROTEIN 7.8 GM/DL (6.4-8.2)
[2017-09-18 06:00] LABS: LYMPHOCYTES % (MANUAL) 7 %; MONOCYTES % (MANUAL) 3 %; NEUTROPHILS % (MANUAL) 90 %; RBC MORPH NORMAL
[2017-09-18] MEDS: RT-ALBUTEROL/IPRATROPIUM 3 ML (DUONEB) VIAL INH SCH ×4 (07:09→18:54)
--- NOTE | 2017-09-18 07:44 | Diagnostic Imaging Report ---
PROCEDURE: CT angiography of the chest with contrast. TECHNIQUE: Multiple contiguous axial images were obtained through the chest after uneventful bolus administration of intravenous contrast. Reconstructed CTA MIP acquisitions were also performed. INDICATION: Difficulty breathing, cough, history of cancer. COMPARISON: CT chest from 12/18/2013 FINDINGS: There is significant motion artifact on multiple images. The bolus timing is somewhat suboptimal, and the pulmonary arteries are diagnostic to the proximal lobar level. No pulmonary embolus is seen. The heart is normal in size. There is no pericardial effusion. No mediastinal lymph nodes are seen. There is marked motion artifact throughout the lungs. There appears to be atelectasis in the dependent lungs bilaterally. No dense consolidation is seen. No pleural effusion or pneumothorax is identified. No acute osseous abnormality is seen. The imaged portions of the upper abdomen demonstrate no acute abnormality. IMPRESSION: 1. Marked motion artifact throughout the examination. No central pulmonary embolus or acute pulmonary abnormality is seen. Dictated by: Dictated on workstation # [id number]
[2017-09-18] MEDS ORDERED: TOPI200T8 PO (08:22)
[2017-09-18] MEDS ORDERED: LEVE500T6 PO (08:22)
--- NOTE | 2017-09-18 09:23 | Diagnostic Imaging Report ---
PROCEDURE: CT neck soft tissue with contrast. TECHNIQUE: Multiple contiguous axial images were obtained through the neck after the administration of contrast. INDICATION: Sore throat. Persistent cough. FINDINGS: The posterior nasopharynx appears appropriately symmetric. There is mild prominence of the adenoids and of the palatine and lingual tonsils without evidence of internal low-density to suggest peritonsillar abscess. There is a suggestion that these may be mildly edematous. There is no displacement of the parapharyngeal fat planes. There is no abnormal process evident within the prevertebral retropharyngeal space. There is a suggestion that there may be some thickening of the epiglottis though this could in part be technical in basis as the patient is reportedly coughing during this examination. There also appears to be partial closure of the glottis. There is no evidence of an abnormal process within the paraglottic fat planes or evidence of thickening of the anterior commissures. The subglottic trachea is unremarkable. There are small scattered cervical lymph nodes but none which appear pathologically enlarged. The parotid, submandibular and thyroid glands unremarkable. Vascular structures of the neck demonstrate no evidence of high-grade stenosis. There are mild degenerative features present within the cervical spine without evidence of an acute process or suspicious lytic or blastic lesion. The lung apices appear clear. The visualized intracranial contents demonstrate no mass effect or abnormal enhancement. The visualized portions of the mastoids and paranasal sinuses are clear. IMPRESSION: 1. There is moderate apparent edema demonstrated within the pharyngeal soft tissues including the adenoids, the palatine and lingual tonsils suggesting a pharyngitis. There is no evidence of peritonsillar abscess 2. By CT imaging, there is a thickened appearance of the epiglottis with airway narrowing. This may, however, be technical in basis as the glottis also appears closed and the patient reportedly was coughing during the examination. Clinical correlation is appreciated. Repeat imaging could be considered if epiglottitis is a clinical concern. 3. No pathologic adenopathy evident. Dictated by: Dictated on workstation # [id number]
[2017-09-18] MEDS: RT-BUDESONIDE NEBS 0.5 MG/2ML (PULMICORT) AMP INH SCH ×2 (11:46→18:54)
--- NOTE | 2017-09-18 12:04 | History & Physicial ([facility]) ---
HPI History of Present Illness: This is a 32 yo female who is scheduled to establish care with Dr. Oakes on . She has previously only been seen at [facility] for acute visits. Pt presented to the ER w/ cold symptoms for the past 2 days. She reports cough with subsequent hoarseness and spasm of the vocal cords. Pt reports a history of this previously and was seen in the ER for similar symptoms in March. Apparently patient was very agitated in the ER last night and the ER physician felt patient might be exaggerating her SOA and vocal cord spasm. She was treated with racemic epi inhaled w/o significant improvement. This am pt is resting comfortably w/o any SOA while sleeping. With talking and coughing pt is noted to be significantly hoarse with some upper airway stridor which improves with vocal rest. Date seen by provider: Sep 18, 2017 Time Seen by Provider: 06:35 Attending Physician Ezekiel Oakes MD PCP No,Local Physician Consult Date of Admission Sep 17, 2017 at 23:30 Home Medications Home Medications Reviewed patient Home Medication Reconciliation performed by pharmacy medication reconciliations optical engineering technician and/or nursing. Patients Allergies have been reviewed. Allergies Coded Allergies: cefaclor (Verified Allergy, Unknown, 12/19/13) latex (Verified Allergy, Unknown, 12/19/13) peanut (Verified Allergy, Unknown, 12/19/13) strawberry (Verified Allergy, Unknown, 10/28/16) venom-honey bee (Verified Allergy, Unknown, 12/19/13) EWT-Clqfxg-Wckctm Hx Patient Social History Alcohol Use: Denies Use Recreational Drug Use: No Smoking Status: Never a Smoker 2nd Hand Smoke Exposure: No Recent Foreign Travel: No Contact w/other who traveled: No Recent Hopitalizations: No Recent Infectious Disease Expo: No Physical Abuse Screen: No Sexual Abuse: No Immunizations Up To Date Tetanus Booster (TDap): More than 5yrs Date of Pneumonia Vaccine: Jun 14, 2011 Date of Influenza Vaccine: Mar 13, 2017 Past Medical History Seizure disorder - admitted 05/2017 w/ status epilepticus hx of vocal cord dysfunction hx of cervical dysplasia s/p cryotherapy x2 hx of ovarian cysts, chronic PID and chronic pelvic pain reported hx of colon cancer, breast cancer PSH: cholecystectomy appendectomy colon resection breast surgery Family Medical History Significant Family History: No Pertinent Family Hx Family History: Patient reports no known family medical history. Review of Systems ([facility]) Constitutional: see HPI Reviewed Test Results Reviewed Test Results Lab Laboratory Tests 09/17/17 20:20: White Blood Count 13.6H, Red Blood Count 4.59, Hemoglobin 15.0, Hematocrit 42, Mean Corpuscular Volume 91, Mean Corpuscular Hemoglobin 33, Mean Corpuscular Hemoglobin Concent 36, Red Cell Distribution Width 12.6, Platelet Count 223, Mean Platelet Volume 9.9, Neutrophils (%) (Auto) 68, Lymphocytes (%) (Auto) 23, Monocytes (%) (Auto) 8, Eosinophils (%) (Auto) 2, Basophils (%) (Auto) 0, Neutrophils # (Auto) 9.2H, Lymphocytes # (Auto) 3.1, Monocytes # (Auto) 1.1H, Eosinophils # (Auto) 0.2, Basophils # (Auto) 0.0, Prothrombin Time 11.5L, INR Comment 0.8, Activated Partial Thromboplast Time 30, Blood Gas Puncture Site LT RAD, Blood Gas Patient Temperature 98.8, Arterial Blood pH 7.32*L, Arterial Blood Partial Pressure CO2 51H, Arterial Blood Partial Pressure O2 202H, Arterial Blood HCO3 26, Arterial Blood Total CO2 27.1, Arterial Blood Oxygen Saturation 100, Arterial Blood Base Excess 0.3, Reinaldo Test YES-POS, Blood Gas Ventilator Setting NO, Blood Gas Inspired Oxygen SEE ORDER COMMENT, Sodium Level 140, Potassium Level 4.1, Chloride Level 107, Carbon Dioxide Level 16L, Anion Gap 17H, Blood Urea Nitrogen 17, Creatinine 1.06, Estimat Glomerular Filtration Rate 59, BUN/Creatinine Ratio 16, Glucose Level 93, Lactic Acid Level 1.15, Calcium Level 9.5, Magnesium Level 3.0H, Total Bilirubin 0.3, Aspartate Amino Transf (AST/SGOT) 26, Alanine Aminotransferase (ALT/SGPT) 45, Alkaline Phosphatase 70, Troponin I < 0.30, B-Type Natriuretic Peptide < 10.0, Total Protein 9.3H, Albumin 4.6H, Serum Test, Qualitative NEGATIVE 09/17/17 21:50: Urine Color YELLOW, Urine Clarity SLIGHTLY CLOUDY, Urine pH 5, Urine Specific [place] 1.025H, Urine Protein NEGATIVE, Urine Glucose (UA) NEGATIVE, Urine Ketones NEGATIVE, Urine Nitrite NEGATIVE, Urine Bilirubin NEGATIVE, Urine Urobilinogen NORMAL, Urine Leukocyte Esterase NEGATIVE, Urine RBC (Auto) 3+H, Urine RBC 0-2, Urine WBC 0-2, Urine Squamous Epithelial Cells 5-10, Urine Renal Epithelial Cells NONE, Urine Crystals NONE, Urine Bacteria NEGATIVE, Urine Casts NONE, Urine Mucus NEGATIVE, Urine Culture Indicated NO, Urine Opiates Screen NEGATIVE, Urine Oxycodone Screen NEGATIVE, Urine Methadone Screen NEGATIVE, Urine Propoxyphene Screen NEGATIVE, Urine Barbiturates Screen NEGATIVE , Ur Tricyclic Antidepressants Screen NEGATIVE, Urine Phencyclidine Screen NEGATIVE, Urine Amphetamines Screen NEGATIVE, Urine Methamphetamines Screen NEGATIVE, Urine Benzodiazepines Screen NEGATIVE, Urine Cocaine Screen NEGATIVE, Urine Cannabinoids Screen NEGATIVE 09/18/17 04:40: White Blood Count 11.1H, Red Blood Count 4.48, Hemoglobin 14.1, Hematocrit 41, Mean Corpuscular Volume 91, Mean Corpuscular Hemoglobin 32, Mean Corpuscular Hemoglobin Concent 35, Red Cell Distribution Width 12.3, Platelet Count 192, Mean Platelet Volume 9.9, Neutrophils (%) (Auto) 92H, Lymphocytes (%) (Auto) 8L , Monocytes (%) (Auto) 1, Eosinophils (%) (Auto) 0, Basophils (%) (Auto) 0, Neutrophils # (Auto) 10.2H, Lymphocytes # (Auto) 0.8L, Monocytes # (Auto) 0.1, Eosinophils # (Auto) 0.0, Basophils # (Auto) 0.0, Sodium Level 136, Potassium Level 4.1, Chloride Level 108H, Carbon Dioxide Level 21, Anion Gap 7, Blood Urea Nitrogen 14, Creatinine 0.79, Estimat Glomerular Filtration Rate > 60, BUN/ Creatinine Ratio 18, Glucose Level 146H, Calcium Level 9.2, Total Bilirubin 0.4 , Aspartate Amino Transf (AST/SGOT) 19, Alanine Aminotransferase (ALT/SGPT) 39, Alkaline Phosphatase 59, Total Protein 7.8, Albumin 4.5, Neutrophils % (Manual) 90, Lymphocytes % (Manual) 7, Monocytes % (Manual) 3, Blood Morphology Comment NORMAL, C-Reactive Protein High Sensitivity 0.45 09/18/17 12:01: Group A Streptococcus Screen NEGATIVE Radiology Date of Exam: 09/17/17 CT NECK (SOFT TISSUE) W PROCEDURE: CT neck soft tissue with contrast. TECHNIQUE: Multiple contiguous axial images were obtained through the neck after the administration of contrast. INDICATION: Sore throat. Persistent cough. FINDINGS: The posterior nasopharynx appears appropriately symmetric. There is mild prominence of the adenoids and of the palatine and lingual tonsils without evidence of internal low-density to suggest peritonsillar abscess. There is a suggestion that these may be mildly edematous. There is no displacement of the parapharyngeal fat planes. There is no abnormal process evident within the prevertebral retropharyngeal space. There is a suggestion that there may be some thickening of the epiglottis though this could in part be technical in basis as the patient is reportedly coughing during this examination. There also appears to be partial closure of the glottis. There is no evidence of an abnormal process within the paraglottic fat planes or evidence of thickening of the anterior commissures. The subglottic trachea is unremarkable. There are small scattered cervical lymph nodes but none which appear pathologically enlarged. The parotid, submandibular and thyroid glands unremarkable. Vascular structures of the neck demonstrate no evidence of high-grade stenosis. There are mild degenerative features present within the cervical spine without evidence of an acute process or suspicious lytic or blastic lesion. The lung apices appear clear. The visualized intracranial contents demonstrate no mass effect or abnormal enhancement. The visualized portions of the mastoids and paranasal sinuses are clear. IMPRESSION: 1. There is moderate apparent edema demonstrated within the pharyngeal soft tissues including the adenoids, the palatine and lingual tonsils suggesting a pharyngitis. There is no evidence of peritonsillar abscess 2. By CT imaging, there is a thickened appearance of the epiglottis with airway narrowing. This may, however, be technical in basis as the glottis also appears closed and the patient reportedly was coughing during the examination. Clinical correlation is appreciated. Repeat imaging could be considered if epiglottitis is a clinical concern. 3. No pathologic adenopathy evident. Date of Exam: 09/17/17 CT ANGIO CHEST W PROCEDURE: CT angiography of the chest with contrast. TECHNIQUE: Multiple contiguous axial images were obtained through the chest after uneventful bolus administration of intravenous contrast. Reconstructed CTA MIP acquisitions were also performed. INDICATION: Difficulty breathing, cough, history of cancer. COMPARISON: CT chest from 12/18/2013 FINDINGS: There is significant motion artifact on multiple images. The bolus timing is somewhat suboptimal, and the pulmonary arteries are diagnostic to the proximal lobar level. No pulmonary embolus is seen. The heart is normal in size. There is no pericardial effusion. No mediastinal lymph nodes are seen. There is marked motion artifact throughout the lungs. There appears to be atelectasis in the dependent lungs bilaterally. No dense consolidation is seen. No pleural effusion or pneumothorax is identified. No acute osseous abnormality is seen. The imaged portions of the upper abdomen demonstrate no acute abnormality. IMPRESSION: 1. Marked motion artifact throughout the examination. No central pulmonary embolus or acute pulmonary abnormality is seen. Physical Exam-([facility]) Physical Exam Vital Signs VS - Last 72 Hours, by Label 09/17/17 09/17/17 09/17/17 09/17/17 20:15 20:20 20:21 20:35 Temp 98.8 Pulse 127 Resp 20 B/P (MAP) 138/74 (95) Pulse Ox 98 98 97 O2 Delivery Nasal Cannula Room Air Room Air FI02 O2 Flow Rate 2.00 6.00 09/18/17 09/18/17 09/18/17 09/18/17 00:53 00:55 00:55 03:32 Temp 98.8 97.8 Pulse 127 106 91 Resp 20 22 B/P (MAP) 138/74 (95) 106/73 (84) Pulse Ox 97 98 98 O2 Delivery FI02 Nasal Cannula Nasal Cannula O2 Flow Rate 6.00 2.00 2.00 09/18/17 09/18/17 09/18/17 09/18/17 04:10 07:30 08:30 09:33 Temp 97.9 98.0 Pulse 68 60 Resp 20 16 B/P (MAP) 100/54 (69) 113/68 (83) Pulse Ox 98 97 98 O2 Delivery Nasal Cannula Nasal Cannula Nasal Cannula Nasal Cannula O2 Flow Rate 2.00 2.00 2.00 2.00 09/18/17 09/18/17 11:50 12:17 Temp 98.0 Pulse 113 Resp 18 B/P (MAP) 120/76 (91) Pulse Ox 98 O2 Delivery Nasal Cannula Nasal Cannula O2 Flow Rate 2.00 2.00 Capillary Refill : Less Than 3 Seconds General Appearance: WD/WN, no apparent distress HEENT: pharyngeal erythema, other (upper airway stridor intermittent w/ talking and coughing) Respiratory: lungs clear, normal breath sounds Cardiovascular: regular rate, rhythm, no edema Gastrointestinal: non tender, soft Neurologic/Psychiatric: normal mood/affect Skin: normal color, warm/dry Assessment/Plan Assessment/Plan Admission Dx 1. Vocal cord dysfunction secondary to URI and pharyngitis Admission Status: Observation Assessment & Plan 1. Vocal cord dysfunction secondary to URI and pharyngitis - Pt admitted for observation - given racemic epi inh in the ER w/o significant improvement - CT neck shows soft tissue pharyngeal edema c/w pharyngitis; evaluation of epiglottis difficult to interpret as patient was coughing and agitated during the exam - check rapid strep and crp; continue to monitor, treat w/ IV steroids and valium as needed. 2. Seizure disorder - resume home seizure medications Scheduled to establish care w/ Dr. Oakes at [facility] on 09/30/17. Clinical Quality Measures DVT/VTE Risk/Contraindication: Risk Factor Score Per Nursin RFS Level Per Nursing on Admit: 1=Low/No VTE PPX SHILPI SMALL DO Sep 18, 2017 12:03
[2017-09-18] MEDS ORDERED: NON-FORMULARY MEDICATION 1 EA EA (Topiramate 200 MG) PO SCH ×2 (13:00→21:00)
[2017-09-18] MEDS: ONDANSETRON 4 MG/2 ML (SDV) Z0FRAN IVP PRN ×2 (13:22→18:24)
[2017-09-18] MEDS: methylPREDNISolone 40 MG/ML (Solu-MEDROL) VIAL IV SCH ×2 (13:22→22:44)
[2017-09-18] MEDS: LEVETIRACETAM 500 MG (KEPPRA) TAB PO SCH ×2 (13:22→20:30)
[2017-09-18] MEDS: toPIRamate 100 MG (TOPAMAX) TAB PO SCH (20:30)
[2017-09-18] MEDS ORDERED: LEVETIRACETAM 500 MG (KEPPRA) TAB PO SCH (21:00)
[2017-09-18] MEDS: LEVOFLOXACIN 500 MG/D5W 100 ML (PRE-MIX) IV SCH (22:44)
[2017-09-19 04:15] VITALS: BP 119/73
[2017-09-19] MEDS: methylPREDNISolone 40 MG/ML (Solu-MEDROL) VIAL IV SCH ×3 (06:44→20:45)
[2017-09-19] MEDS: RT-ALBUTEROL/IPRATROPIUM 3 ML (DUONEB) VIAL INH SCH ×4 (07:05→19:15)
[2017-09-19] MEDS: RT-BUDESONIDE NEBS 0.5 MG/2ML (PULMICORT) AMP INH SCH ×2 (07:07→19:15)
[2017-09-19 08:30] VITALS: BP 100/64
[2017-09-19] MEDS: LEVETIRACETAM 500 MG (KEPPRA) TAB PO SCH ×4 (09:05→21:45)
[2017-09-19] MEDS: toPIRamate 100 MG (TOPAMAX) TAB PO SCH ×4 (09:05→21:45)
[2017-09-19] MEDS ORDERED: RT-epiNEPHrine (RACEMIC) 2.25% 0.5 ML VIAL INH NR (11:00)
[2017-09-19] MEDS: ONDANSETRON 4 MG/2 ML (SDV) Z0FRAN IVP PRN (12:13)
[2017-09-19 12:30] VITALS: BP 109/73
[2017-09-19] MEDS ORDERED: PRD50T PO (14:15)
[2017-09-19] MEDS ORDERED: LEVO500T2 PO (14:15)
--- NOTE | 2017-09-19 14:18 | Discharge Instructions ---
Discharge Inst-[facility] Discharge Medications New, Converted or Re-Newed RX: Transmitted to Pharmacy ([facility]) New Medications: Levofloxacin (Levaquin) 500 Mg Tablet 500 MG PO DAILY, #5 TAB Prednisone (Prednisone) 50 Mg Tab 50 MG PO DAILY, #5 TAB Continued Medications: Levetiracetam (Levetiracetam) 500 Mg Tablet 1500 MG PO BID TAKES 3 (500 MG) TABLETS Topiramate (Topiramate) 200 Mg Tablet 200 MG PO BID Patient Instructions Goal/Follow Up Appt: You have an [facility] care/hospital followup appt with Dr Crain on 09/30 @ 1120 AM Patient Instructions: - Make sure you complete and take your antibioitics and steroids - Try and let your voice rest - Stay well hydrated [facility] to [facility]: - Troubles breathing Activity & Diet Discharge Diet: Soft Diet Activity as Tolerated: Yes Copy Copies To 1: BRIANNE CRAIN MD, HOLLY R MD Sep 19, 2017 14:18
[2017-09-19 16:00] VITALS: BP_SYST 128; BP_SYST 136; BP_DIAS 77; BP_DIAS 87
--- NOTE | 2017-09-19 16:20 | Discharge Summary ---
Diagnosis/Chief Complaint Date of Admission Sep 17, 2017 at 11:30 pm Date of Discharge 09/19/2017 Admission Diagnosis Admission Diagnosis Vocal Cord Dysfunction Seizure Disorder Discharge Diagnosis See Above Chief Complaint/HPI Chief Complaint/HPI This is a 32 yo female who is scheduled to establish care with Dr. Crain on . She has previously only been seen at [facility] for acute visits. Pt presented to the ER w/ cold symptoms for the past 2 days. She reports cough with subsequent hoarseness and spasm of the vocal cords. Pt reports a history of this previously and was seen in the ER for similar symptoms in March. Apparently patient was very agitated in the ER last night and the ER physician felt patient might be exaggerating her SOA and vocal cord spasm. She was treated with racemic epi inhaled w/o significant improvement. This am pt is resting comfortably w/o any SOA while sleeping. With talking and coughing pt is noted to be significantly hoarse with some upper airway stridor which improves with vocal rest. Discharge Summary-Simple/Stand Consultations Discharge Physical Examination Allergies: Coded Allergies: cefaclor (Verified Allergy, Unknown, 12/19/13) latex (Verified Allergy, Unknown, 12/19/13) peanut (Verified Allergy, Unknown, 12/19/13) strawberry (Verified Allergy, Unknown, 10/28/16) venom-honey bee (Verified Allergy, Unknown, 12/19/13) Vitals & I&Os Vital Sign - Last 12Hours Date Time Temp Pulse Resp B/P (MAP) Pulse Ox O2 Delivery O2 Flow Rate FiO2 09/19/17 15:16 98 Room Air 09/19/17 12:30 98.5 92 22 109/73 (85) 09/19/17 04:15 2.00 Intake and Output 09/19/17 00:00 Intake Total 1940 ml Output Total 2000 ml Balance -60 ml General Appearance: Alert, Oriented X3, Cooperative, No Acute Distress HEENT: Mucous Memb Moist/[place], Other (mild erythema of tonsils) Respiratory: Clear to Auscultation, Normal Air Movement Cardiovascular: Regular Rate, No Murmurs Abdominal: Normal Bowel Sounds, Soft, No Tenderness, No Hepatosplenomegaly, No Masses Extremities: No Edema, No Tenderness/Swelling Skin: No Rashes Neuro: Normal Gait, Strength at 5/5 X4 Ext, Sensation Intact, Cranial Nerves 3- 12 NL Hospital Course See final discharge diagnosis. Radiology Reviewed Date of Exam: 09/17/17 CT NECK (SOFT TISSUE) W PROCEDURE: CT neck soft tissue with contrast. TECHNIQUE: Multiple contiguous axial images were obtained through the neck after the administration of contrast. INDICATION: Sore throat. Persistent cough. FINDINGS: The posterior nasopharynx appears appropriately symmetric. There is mild prominence of the adenoids and of the palatine and lingual tonsils without evidence of internal low-density to suggest peritonsillar abscess. There is a suggestion that these may be mildly edematous. There is no displacement of the parapharyngeal fat planes. There is no abnormal process evident within the prevertebral retropharyngeal space. There is a suggestion that there may be some thickening of the epiglottis though this could in part be technical in basis as the patient is reportedly coughing during this examination. There also appears to be partial closure of the glottis. There is no evidence of an abnormal process within the paraglottic fat planes or evidence of thickening of the anterior commissures. The subglottic trachea is unremarkable. There are small scattered cervical lymph nodes but none which appear pathologically enlarged. The parotid, submandibular and thyroid glands unremarkable. Vascular structures of the neck demonstrate no evidence of high-grade stenosis. There are mild degenerative features present within the cervical spine without evidence of an acute process or suspicious lytic or blastic lesion. The lung apices appear clear. The visualized intracranial contents demonstrate no mass effect or abnormal enhancement. The visualized portions of the mastoids and paranasal sinuses are clear. IMPRESSION: 1. There is moderate apparent edema demonstrated within the pharyngeal soft tissues including the adenoids, the palatine and lingual tonsils suggesting a pharyngitis. There is no evidence of peritonsillar abscess 2. By CT imaging, there is a thickened appearance of the epiglottis with airway narrowing. This may, however, be technical in basis as the glottis also appears closed and the patient reportedly was coughing during the examination. Clinical correlation is appreciated. Repeat imaging could be considered if epiglottitis is a clinical concern. 3. No pathologic adenopathy evident. Date of Exam: 09/17/17 CT ANGIO CHEST W PROCEDURE: CT angiography of the chest with contrast. TECHNIQUE: Multiple contiguous axial images were obtained through the chest after uneventful bolus administration of intravenous contrast. Reconstructed CTA MIP acquisitions were also performed. INDICATION: Difficulty breathing, cough, history of cancer. COMPARISON: CT chest from 12/18/2013 FINDINGS: There is significant motion artifact on multiple images. The bolus timing is somewhat suboptimal, and the pulmonary arteries are diagnostic to the proximal lobar level. No pulmonary embolus is seen. The heart is normal in size. There is no pericardial effusion. No mediastinal lymph nodes are seen. There is marked motion artifact throughout the lungs. There appears to be atelectasis in the dependent lungs bilaterally. No dense consolidation is seen. No pleural effusion or pneumothorax is identified. No acute osseous abnormality is seen. The imaged portions of the upper abdomen demonstrate no acute abnormality. IMPRESSION: 1. Marked motion artifact throughout the examination. No central pulmonary embolus or acute pulmonary abnormality is seen. Discussion & Recommendations 32 yo F with known vocal cord dysfunction Vocal Cord dysfunction - h/o >10 intubations in the last 10 years - Recommend outpatient f/u with ENT - Discussed voice rest, likely 2/2 viral infection Seizure d/o - Controlled, continue home meds - Will need to establish with Neurologist Home today with close followup with [facility] Discharge Condition at discharge stable Instructions to patient/family Please see electronic discharge instructions given to patient. Discharge Medications Reviewed and agree with Discharge Medication list on patient's Discharge Instruction sheet Clinical Quality Measures DVT/VTE Risk/Contraindication: Risk Factor Score Per Nursin RFS Level Per Nursing on Admit: 1=Low/No VTE PPX Copy Copies To 1: BRIANNE CRAIN MD, HOLLY R MD Sep 19, 2017 4:20 pm
[2017-09-20 00:02] VITALS: BP 121/71
[2017-09-20] MEDS: LEVOFLOXACIN 500 MG/D5W 100 ML (PRE-MIX) IV SCH (02:53)
[2017-09-20] MEDS: RT-ALBUTEROL/IPRATROPIUM 3 ML (DUONEB) VIAL INH SCH ×4 (07:23→19:20)
[2017-09-20] MEDS: RT-BUDESONIDE NEBS 0.5 MG/2ML (PULMICORT) AMP INH SCH ×2 (07:25→19:20)
[2017-09-20 08:00] VITALS: BP 106/58
[2017-09-20] MEDS ORDERED: predniSONE 10 MG TAB PO SCH (09:13)
[2017-09-20] MEDS ORDERED: predniSONE 20 MG TAB PO SCH (09:14)
[2017-09-20] MEDS: toPIRamate 100 MG (TOPAMAX) TAB PO SCH ×2 (09:22→21:23)
[2017-09-20] MEDS: LEVETIRACETAM 500 MG (KEPPRA) TAB PO SCH ×2 (09:22→21:22)
[2017-09-20] MEDS ORDERED: ACETAMINOPHEN 325 MG TABLET/CAPLET (TYLENOL) PO PRN (11:15)
[2017-09-20 14:38] LABS: AMPHETAMINE SCREEN, URINE NEGATIVE (NEGATIVE); BARBITURATE SCREEN URINE NEGATIVE (NEGATIVE); BENZODIAZEPINES SCREEN URINE NEGATIVE (NEGATIVE); CANNABINOID SCREEN, URINE NEGATIVE (NEGATIVE); COCAINE SCREEN URINE NEGATIVE (NEGATIVE); METHADONE STAT NEGATIVE (NEGATIVE); METHAMPHETAMINE SCREEN URINE S NEGATIVE (NEGATIVE); OPIATE SCREEN URINE NEGATIVE (NEGATIVE); OXYCODONE STAT NEGATIVE (NEGATIVE); PROPOXYPHENE STAT NEGATIVE (NEGATIVE); TRICYCLIC ANTIDEPRESSANTS SCRE NEGATIVE (NEGATIVE)
[2017-09-20] MEDS ORDERED: LORazepam INJ 2 MG/ML (ATIVAN) VIAL ONE (14:58)
[2017-09-20] MEDS ORDERED: LORazepam INJ 2 MG/ML (ATIVAN) VIAL IVP NR (15:04)
[2017-09-20] MEDS ORDERED: LEVETIRACETAM INJECTION 1,500 MG in NS (IVPB) 100 ML IV NR (15:05)
[2017-09-20] MEDS ORDERED: LORazepam INJ 2 MG/ML (ATIVAN) VIAL IVP ONE ×2 (15:15→16:15)
[2017-09-20] MEDS ORDERED: LEVETIRACETAM INJECTION 1,000 MG in NS (IVPB) 100 ML IV ONE (15:15)
[2017-09-20 16:00] VITALS: BP 114/66
--- NOTE | 2017-09-20 16:24 | Diagnostic Imaging Report ---
PROCEDURE: CT head without contrast. TECHNIQUE: Multiple contiguous axial images were obtained through the brain without the use of intravenous contrast. INDICATION: Seizure and unresponsive. COMPARISON: Comparison is made with prior CT head from 09/03/2017. FINDINGS: The ventricles and sulci are within normal limits. No sulcal effacement is seen. There is no midline shift. No acute intra-axial or extra-axial hemorrhage is detected. The cisterns are patent. The visualized paranasal sinuses are clear. IMPRESSION: No acute intracranial process is detected. Dictated by: Dictated on workstation # [id number]
[2017-09-21 02:05] VITALS: BP 114/66
[2017-09-21] MEDS ORDERED: LEVOFLOXACIN 500 MG TAB (LEVAQUIN) PO SCH (11:00)
== END 2017-09-20 20:30 | disposition short-term general hospital (02) ==
LOC: EDUNIT# 19:52 → ER 19:54 → 4TH 23:30
PROVIDERS: ADMIT Family Medicine; ATTEND Internal Medicine
DX: J38.3 Other diseases of vocal cords (principal); J03.90 Acute tonsillitis, unspecified; G40.909 Epilepsy, unspecified, not intractable, without status epilepticus
CPT/HCPCS: 36415; 36600; 70450; 70491; 71045; 71275; 80053; 80306; 81000; 82805; 83605; 83735; 83880; 84484; 84703; 85007; 85025; 85027; 85610; 85730; 86141; 87040; 87430; 93005; 93041; 94640; 94760; 96374; 96375

== ENCOUNTER 2018-02-28 19:36 | Emergency (ER) | payer MEDICAID ==
[~2018-02-28] VITALS: Ht 180.3 cm; Wt 82.6 kg
[~2018-02-28 19:36] MED LIST changes: +LEVO500T2 PO; +PRD50T PO; +TOPI200T8 PO
[2018-02-28] MEDS ORDERED: RT-SODIUM CHL INHALATION 3 ML VIAL ONE (19:39)
[2018-02-28] MEDS ORDERED: RT-epiNEPHrine (RACEMIC) 2.25% 0.5 ML VIAL ONE (19:39)
--- OUTSIDE RECORDS SUMMARY | 2018-02-28 19:43 | XMS REPORT ---
Author Author BRIANNE CRAIN [facility] Address [address] [place] [address] Care Team Providers Care Sizing Machine Operator Name Role Phone BRIANNE CRAIN Unavailable PROBLEMS Type Condition ICD9-CM Code [id number] Code Onset Dates Condition Status SNOMED Code Problem Seizure disorder G40.909 Active 644607404 ALLERGIES No Information ENCOUNTERS Encounter Location Date Diagnosis [facility] [id number] [place] [address]65[address] October, [facility] [address] [address] Sep, Seizure disorder G40.909 [facility] [id number] [place] [address] Sep, Acute nasopharyngitis J00 [facility] [id number] [place] [address]59 Jun, Somnolence R40.0 [facility] [id number] [place] [address] 60968- 0079 Jun, Routine sports physical exam Z02.5 [facility] [id number] [place] [address] 57974- 9380 Sep, [facility] [id number] [place] [address] 15149- 2514 Sep, [facility] [address] [address]- 8522 Aug, [facility] [id number] [place] [address] 05923- 0029 Aug, [facility] [address] [address]- 5531 Jul, [facility] [place] [facility] [address] [id number] [place] [address]- 6530 Jul, [facility] [place] [facility] [address] [id number] [place] [address] Jul, [facility] [place] [facility] [address] [id number] [place] [address]- 4026 Jul, [facility] [place] [facility] [address] [id number] [place] [address]- 1241 Mar, [facility] [place] [facility] [address] [id number] [place] [address] Mar, [facility] [place] [facility] [address] [id number] [place] [address]- 8222 Feb, [facility] [place] [facility] [address] [id number] [place] [address]- 8297 Feb, [facility] [place] [facility] [address] [id number] [place] [address]- 6660 Jan, [facility] [place] [facility] [address] [id number] [place] [address]- 5576 Jan, [facility] [place] [facility] [address] [facility] [id number] [place] [address]- 0736 Dec, [facility] [place] [facility] [address] [id number] [place] [address]- 9877 October, [facility] [place] [facility] [address] [id number] [place] [address]- 9015 Jul, [facility] [place] [facility] [address] [id number] [place] [address]- 4954 Jul, [facility] [place] [facility] [address] [id number] [place] [address]- 8637 Jun, [facility] [place] [facility] [address] [id number] [place] [address]- 1313 Jun, [facility] [address] [id number] [address] 2546 Mar, [facility] [address] [place] [address] 2546 Mar, [facility] [address] [id number] [address] 2546 Feb, [facility] [address] [place] [address] 25[address] Nov, [facility] [address] [address] 25[address] October, [facility] [address] [place] [address] 25[address] October, [facility] [address] [place] [address] 2546 Jul, [facility] [address] [address]- 25[address] May, [facility] [address] [address] 2542 Apr, [facility] [address] [id number] [address]- 3636 Mar, IMMUNIZATIONS No Known Immunizations SOCIAL HISTORY Never Assessed REASON FOR VISIT Refill request PLAN OF CARE VITAL SIGNS MEDICATIONS Medication Instructions Dosage Frequency Start Date End Date Duration Status ProAir HFA 108 (90 Base) MCG/ACT Inhalation every 4 hrs 2 puffs as needed 4h Active Albuterol Sulfate 1.25 MG/3ML Inhalation every 8 hrs 3 ml as needed 8h Active RESULTS No Results PROCEDURES No Known procedures INSTRUCTIONS MEDICATIONS ADMINISTERED No Known Medications MEDICAL (GENERAL) HISTORY Type Description Date Medical History Colorectal cancer Medical History Hypoglycemia Medical History Seizure Disorder- Epileptic and Pseudoseizures Medical History Cervical Cancer Medical History diverticulitis Surgical History Appendectomy 2012 Surgical History Carpal tunnel release x2, right wrist Surgical History Right ankle fracture repair Surgical History cholecystectomy 2016 Surgical History left mastectomy 2015 Surgical History right mastectomy 1998 Surgical History Bowel Resection 2015 Hospitalization History Seizure Disorder- [facility] August 2017
--- OUTSIDE RECORDS SUMMARY | 2018-02-28 19:43 | XMS REPORT ---
Author Author BYRON KUO [facility] IN [facility] Address [address] [place] [address] Care Team Providers Care Lag Screwer Name Role Phone BYRON KUO Unavailable PROBLEMS Type Condition ICD9-CM Code [id number] Code Onset Dates Condition Status SNOMED Code Problem Seizure disorder G40.909 Active [id number] ALLERGIES Substance Reaction Event Type Date Status Latex body swells Drug Allergy Sep, Active nuts anaphylaxis Non Drug Allergy Sep, Active Bees/wasps anaphylaxis Non Drug Allergy Sep, Active ENCOUNTERS Encounter Location Date Diagnosis [place] [id number] [address] October, [facility] [address] [address] Sep, Seizure disorder G40.909 [facility] IN [facility] [id number] [place] [address] Sep, Acute nasopharyngitis J00 [facility] IN [facility] [id number] [place] [address]286 [address]23 Jun, Somnolence R40.0 [facility] [address] [address]- [address] Jun, Routine sports physical exam Z02.5 [place] [address] [address]- 16[address] Sep, [facility] [address] [address]- 34[address] Sep, [facility] [address] [address]- 2424 Aug, [facility] [place] [facility] [address] [id number] [place] [address]- 2596 Aug, [facility] [place] [facility] [address] [id number] [place] [address]- 3387 Jul, [facility] [place] [facility] [address] [id number] [place] [address]- 7786 Jul, [facility] [place] [facility] [address] [id number] [place] [address]- 9060 Jul, [facility] [place] [facility] [address] [id number] [place] [address]- 7607 Jul, [facility] [place] [facility] [address] [id number] [place] [address]- 2844 Mar, [facility] [place] [facility] [address] [id number] [place] [address]- 6515 Mar, [facility] [place] [facility] [address] [id number] [place] [address]- 7484 Feb, [facility] [place] [facility] [address] [id number] [place] [address]- 3211 Feb, [facility] [place] [facility] [address] [id number] [place] [address]- 5145 Jan, [facility] [place] [facility] [address] [id number] [place] [address]- 7762 Jan, [facility] [place] [facility] [address] [id number] [place] [address]- 5755 Dec, [facility] [place] [facility] [address] [id number] [place] [address]- 4763 October, [facility] [place] [facility] [address] [id number] [place] [address]- 2250 Jul, [facility] [place] [facility] [address] [id number] [place] [address] Jul, [facility] [place] [facility] [address], [place] [address]- 65[address] Jun, [facility] [address], [place] [address]- 7040 Jun, [facility] [address], [place] [address]- 7466 Mar, [facility] [address], [place] [address]- 2539 Mar, [facility] [address], [place] [address]- 0649 Feb, [facility] [address] [place] [address] 35904- 5315 Nov, [facility] [id number], [place] [address]- 9932 October, [facility] [id number] [place] [address]35- 6894 October, [facility] [address], [place] [address]- 3132 Jul, [facility] [address], [place] [address]- 1352 May, [facility] [address], [place] [address]- 5543 Apr, [facility] [address], [place] [address]- 5795 Mar, IMMUNIZATIONS No Known Immunizations SOCIAL HISTORY Never Assessed REASON FOR VISIT Sore throat, cough, left ear pain, headache- fever 102 last night- has had 2 extra breathing treatments today JStrasserRN PLAN OF CARE Activity Details Follow Up prn Reason: VITAL SIGNS Height 70 in 2017-09-17 Weight 214.8 lbs 2017-09-17 Temperature 98.7 degrees Fahrenheit 2017-09-17 Heart Rate 88 bpm 2017-09-17 Respiratory Rate 20 2017-09-17 BMI 30.82 kg/m2 2017-09-17 Blood pressure systolic 104 mmHg 2017-09-17 Blood pressure diastolic 70 mmHg 2017-09-17 MEDICATIONS Medication Instructions Dosage Frequency Start Date End Date Duration Status Keppra 1,000 mg Orally every 12 hrs take 2 tablet by Oral route every 12 hours 12h Aug, Active ZyrTEC 10 mg 1 Tablet by Oral route 1 time per day Jul, Active Albuterol Sulfate 1.25 MG/3ML Inhalation every 8 hrs 3 ml as needed 8h Active Keppra 500 MG Orally every 12 hrs 1 tablet 12h Active ProAir HFA 108 (90 Base) MCG/ACT Inhalation every 4 hrs 2 puffs as needed 4h Active Topamax 50 mg Orally Twice a day 2 tablets 12h Active Multivitamins - Active RESULTS No Results PROCEDURES No Known procedures INSTRUCTIONS MEDICATIONS ADMINISTERED No Known Medications MEDICAL (GENERAL) HISTORY Type Description Date Medical History Colorectal cancer Medical History Hypoglycemia Medical History Seizure Disorder- Epileptic and Pseudoseizures Medical History Cervical Cancer Medical History diverticulitis Surgical History Appendectomy 2012 Surgical History Carpal tunnel release x2, right wrist Surgical History Right ankle fracture repair Surgical History cholecystectomy 2015 Surgical History left mastectomy 2014 Surgical History right mastectomy 1998 Surgical History Bowel Resection 2015 Hospitalization History Seizure Disorder- [facility] August 2017
--- OUTSIDE RECORDS SUMMARY | 2018-02-28 19:43 | XMS REPORT ---
Author Author BRIANNE CRAIN [facility] Address [address] [place] [address] Care Team Providers Care Job Developer Name Role Phone BRIANNE CRAIN Unavailable PROBLEMS Type Condition ICD9-CM Code [id number] Code Onset Dates Condition Status SNOMED Code Problem Seizure disorder G40.909 Active [id number] ALLERGIES Substance Reaction Event Type Date Status Latex body swells Drug Allergy Sep, Active Cefaclor Unknown Drug Allergy Sep, Active Advair Diskus Unknown Drug Allergy Sep, Active Strawberries rash Non Drug Allergy Sep, Active Bees/wasps anaphylaxis Non Drug Allergy Sep, Active nuts anaphylaxis Non Drug Allergy Sep, Active ENCOUNTERS Encounter Location Date Diagnosis [facility] [address] [address] October, [facility] [address] [address]- [address] Sep, Seizure disorder G40.909 [facility] [id number] [place] [address] -[address]88 Sep, Acute nasopharyngitis J00 [facility] [id number] [place] [address] 56947 -9495 Jun, Somnolence R40.0 [facility] [id number] [place] [address] 56736- 1582 Jun, Routine sports physical exam Z02.5 [facility] [address] [address]- 5586 Sep, [facility] [address] [address]- [address] Sep, [facility] [place] [facility] [address] [id number] [place] [address]- 9295 Aug, [facility] [place] [facility] [address] [id number] [place] [address]- 5001 Aug, [facility] [place] [facility] [address] [id number] [place] [address]- 4943 Jul, 2014 [facility] [place] [facility] [address] [id number] [place] [address]- 9703 Jul, 2014 [facility] [place] [facility] [address] [id number] [place] [address]- 7938 Jul, [facility] [place] [facility] [address] [id number] [place] [address]- 4837 Jul, [facility] [place] [facility] [address] [facility] [id number] [place] [address]- 0966 Mar, [facility] [place] [facility] [address] [id number] [place] [address]- 1165 Mar, [facility] [place] [facility] [address] [id number] [place] [address]- 2214 Feb, [facility] [place] [facility] [address] [id number] [place] [address]- 0214 Feb, [facility] [place] [facility] [address] [id number] [place] [address]- 7780 Jan, [facility] [place] [facility] [address] [id number] [place] [address]- 5341 Jan, [facility] [place] [facility] [address] [id number] [place] [address]- 1314 Dec, [facility] [place] [facility] [address] [id number] [place] [address]- 8304 October, [facility] [place] [facility] [address] [id number] [place] [address]- 5926 Jul, [facility] [place] [facility] [address] [id number] [place] [address] 80919- 2546 Jul, [facility] [address], [place] [address]- 0079 Jun, [facility] [address], [place] [address]- 2546 Jun, [facility] [address], [place] [address]- 2546 Mar, [facility] [address], [place] [address]- 2546 Mar, [facility] [address], [place] [address]- 1744 Feb, [facility] [id number] [place] [address] 2546 Nov, [facility] [address], [place] [address]- 7245 October, [facility] [address], [place] [address]- 2[address] October, [facility] [address], [place] [address]- 1115 Jul, [facility] [address], [place] [address]- 2546 May, [facility] [id number], [place] [address]- 0[address] Apr, [facility] [address], [place] [address] 2546 Mar, IMMUNIZATIONS No Known Immunizations SOCIAL HISTORY Never Assessed REASON FOR VISIT Establish Cale- DEE Lindsay, Needs referral to Neurologist PLAN OF CARE Activity Details Follow Up prn Reason: VITAL SIGNS Height 70 in 2017-09-30 Weight 217 lbs 2017-09-30 Temperature 98.2 degrees Fahrenheit 2017-09-30 Heart Rate 64 bpm 2017-09-30 Respiratory Rate 16 2017-09-30 BMI 31.13 kg/m2 2017-09-30 Blood pressure systolic 102 mmHg 2017-09-30 Blood pressure diastolic 72 mmHg 2017-09-30 MEDICATIONS Medication Instructions Dosage Frequency Start Date End Date Duration Status ProAir HFA 108 (90 Base) MCG/ACT Inhalation every 4 hrs 2 puffs as needed 4h Active Topamax 200 mg Orally Twice a day 1 tablet 12h 30 days Active Keppra 1,000 mg Orally every 12 hrs 1.5 tablet 12h Aug, 30 days Active Albuterol Sulfate 1.25 MG/3ML Inhalation every 8 hrs 3 ml as needed 8h Active EpiPen 0.3 MG/0.3ML Active Keppra 500 MG Orally every 12 hrs 1 tablet 12h Active ZyrTEC 10 mg 1 Tablet by Oral route 1 time per day Jul, Not-Taking Multivitamins - Active RESULTS No Results PROCEDURES [...] Bowel Resection 2015 Hospitalization History Seizure Disorder- [facility] August 2017
--- OUTSIDE RECORDS SUMMARY | 2018-02-28 19:45 | XMS REPORT ---
Author Author BYRON KUO [facility] IN [facility] Address [address] [place] [address] Care Team Providers Care Ship Painter Helper Name Role Phone BYRON KUO Unavailable PROBLEMS Type Condition ICD9-CM Code [id number] Code Onset Dates Condition Status SNOMED Code Problem Seizure disorder G40.909 Active [id number] ALLERGIES Substance Reaction Event Type Date Status Latex body swells Drug Allergy Jun, Active Bees/wasps anaphylaxis Non Drug Allergy Jun, Active nuts anaphylaxis Non Drug Allergy Jun, Active ENCOUNTERS Encounter Location Date Diagnosis [place] [id number] [address] October, [facility] [address] [address] Sep, Seizure disorder G40.909 [facility] [id number] [place] [address] -[address]53 Sep, Acute nasopharyngitis J00 [facility] IN [facility] [id number] [place] [address]70[address] -[address]268 Jun, Somnolence R40.0 [facility] [address] [address]- [address] Jun, Routine sports physical exam Z02.5 [place] [address] [address]- [address] Sep, [facility] [address] [address]- [address] Sep, [place] [address] [address]- [address] Aug, [facility] [place] [facility] [address] [id number] [place] [address]- 1781 Aug, [facility] [place] [facility] [address] [id number] [place] [address]- 0090 Jul, [facility] [place] [facility] [address] [id number] [place] [address]- 9566 Jul, [facility] [place] [facility] [address] [id number] [place] [address]- 6049 Jul, [facility] [place] [facility] [address] [id number] [place] [address]- 6821 Jul, [facility] [place] [facility] [address] [id number] [place] [address]- 7867 Mar, [facility] [place] [facility] [address] [id number] [place] [address]- 5495 Mar, [facility] [place] [facility] [address] [id number] [place] [address]- 6724 Feb, [facility] [place] [facility] [address] [id number] [place] [address]- 2671 Feb, [facility] [place] [facility] [address] [id number] [place] [address]- 8770 Jan, [facility] [place] [facility] [address] [id number] [place] [address]- 1551 Jan, [facility] [place] [facility] [address] [id number] [place] [address]- 7038 Dec, [facility] [place] [facility] [address] [id number] [place] [address]- 2064 October, [facility] [place] [facility] [address] [id number] [place] [address]- 5694 Jul, [facility] [place] [facility] [address] [id number] [place] [address] Jul, [facility] [place] [facility] [address], [place] [address]- 3[address] Jun, [facility] [id number], [place] [address]- 9224 Jun, [facility] [id number], [place] [address]- 1346 Mar, [facility] [id number], [place] [address] 2546 Mar, [facility] [address], [place] [address]- 97[address] Feb, [facility] [id number] [place] [address]- 8896 Nov, [facility] [id number], [place] [address]- 8964 October, [facility] [id number], [place] [address]- 1579 October, [facility] [id number], [place] [address]- 5847 Jul, [facility] [id number], [place] [address]- 4589 May, [facility] [id number], [place] [address]- 9281 Apr, [facility] [id number], [place] [address]- 29[address] Mar, IMMUNIZATIONS No Known Immunizations SOCIAL HISTORY Never Assessed REASON FOR VISIT Vomiting, fever, chills since last Tues- father found her on the floor unconscience today and brought her in [facility] PLAN OF CARE Activity Details Follow Up To ER Reason: VITAL SIGNS Height 70 in 2017-06-26 Weight 208.2 lbs 2017-06-26 Temperature 99.0 degrees Fahrenheit 2017-06-26 Heart Rate 90 bpm 2017-06-26 Respiratory Rate 18 2017-06-26 Oximetry 97 % 2017-06-26 BMI 29.87 kg/m2 2017-06-26 Blood pressure systolic 94 mmHg 2017-06-26 Blood pressure diastolic 70 mmHg 2017-06-26 MEDICATIONS Medication Instructions Dosage Frequency Start Date End Date Duration Status Topamax 50 mg Orally Twice a day 2 tablets 12h Active ZyrTEC 10 mg 1 Tablet by Oral route 1 time per day Jul, Active Keppra 1,000 mg Orally every 12 hrs take 2 tablet by Oral route every 12 hours 12h Aug, Active MethylPREDNISolone 4 mg by Oral route every day for 6 days as directed per dose pack Jul, Not-Taking Keppra 500 MG Orally every 12 hrs 1 tablet 12h Active Albuterol Sulfate 1.25 MG/3ML Inhalation every 8 hrs 3 ml as needed 8h Active Multivitamins - Active ProAir HFA 108 (90 Base) MCG/ACT Inhalation every 4 hrs 2 puffs as needed 4h Active Zithromax Z-Estrada 250 mg 2 tablet by Oral route 1 time per day for 5 days on day 1 then take 1 tab daily on days 2-5 Jan, Not-Taking Levaquin 500 mg 1 tablet by Oral route every 24 hours for 7 days Dec Not-Taking RESULTS No Results PROCEDURES Procedure Date Ordered Result Body Site MEASURE BLOOD OXYGEN LEVEL Jun 26, 2017 INSTRUCTIONS MEDICATIONS ADMINISTERED No Known Medications MEDICAL [...] Bowel Resection 2015 Hospitalization History Seizure Disorder- [facility] August 2017
[2018-02-28] MEDS ORDERED: methylPREDNISolone 125 MG (Solu-MEDROL) VIAL IVP ONE (20:30)
[2018-02-28] MEDS ORDERED: diphenhydrAMINE 50 MG/ML INJ (BENADRYL) IV ONE (20:30)
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
[2018-02-28] MEDS ORDERED: PRD20T PO (21:51)
[2018-02-28 22:01] VITALS: BP 128/89
== END 2018-02-28 22:00 | disposition home or self-care (01) ==
LOC: EDUNIT# 19:36 → ER 19:38
DX: J38.3 Other diseases of vocal cords (principal); J45.909 Unspecified asthma, uncomplicated; G40.909 Epilepsy, unspecified, not intractable, without status epilepticus; Z85.3 Personal history of malignant neoplasm of breast; Z85.038 Personal history of other malignant neoplasm of large intestine; Z85.41 Personal history of malignant neoplasm of cervix uteri; Z92.21 Personal history of antineoplastic chemotherapy; Z87.442 Personal history of urinary calculi; Z87.448 Personal history of other diseases of urinary system; Z87.19 Personal history of other diseases of the digestive system; Z88.8 Allergy status to other drugs, medicaments and biological substances; Z91.040 Latex allergy status; Z77.22 Contact with and (suspected) exposure to environmental tobacco smoke (acute) (chronic); Z79.52 Long term (current) use of systemic steroids; Z90.89 Acquired absence of other organs; Z87.01 Personal history of pneumonia (recurrent)
CPT/HCPCS: 94640; 94664; 96374; 96375; 99283

== ENCOUNTER 2018-03-25 16:07 | Emergency (ER) | payer MEDICAID ==
[~2018-03-25] VITALS: Ht 172.7 cm; Wt 86.2 kg
[~2018-03-25 16:07] MED LIST changes: +PRD20T PO
[2018-03-25] MEDS ORDERED: KETOROLAC 30 MG/ML VIAL IVP STA (17:07)
[2018-03-25 17:35] LABS: BILIRUBIN,URINE NEGATIVE (NEGATIVE); CLARITY,URINE CLEAR; COLOR,URINE YELLOW; GLUCOSE, URINE (UA) NEGATIVE (NEGATIVE); KETONES,URINE NEGATIVE (NEGATIVE); LEUKOCYTE ESTERASE ,URINE NEGATIVE (NEGATIVE); NITRITE,URINE NEGATIVE (NEGATIVE); PH,URINE 7 (5-9); PROTEIN,URINE NEGATIVE (NEGATIVE); UROBILINOGEN,URINE NORMAL (NORMAL)
[2018-03-25 17:43] LABS: RBC,URINE 0-2 /HPF; SQUAMOUS EPITHELIAL CELL,UR 0-2 /HPF
[2018-03-25 17:44] LABS: BASOPHILS % (AUTO) 0 % (0-10); EOSINOPHILS # (AUTO) 0.1 10^3/uL (0.0-0.3); EOSINOPHILS % (AUTO) 1 % (0-10); HEMATOCRIT 40 % (35-52); HEMOGLOBIN 14.3 G/DL (11.5-16.0); LYMPHOCYTES % (AUTO) 10 % (12-44); MEAN CORPUSCULAR HEMOGLOBIN 32 PG (25-34); MEAN CORPUSCULAR HGB CONC 36 G/DL (32-36); MEAN CORPUSCULAR VOLUME 89 FL (80-99); MEAN PLATELET VOLUME 9.4 FL (7.4-10.4); MONOCYTES # (AUTO) 1.1 X 10^3 (0.0-1.0); MONOCYTES % (AUTO) 10 % (0-12); NEUTROPHILS # (AUTO) 8.2 X 10^3 (1.8-7.8); NEUTROPHILS % (AUTO) 79 % (42-75); PLATELET COUNT 171 10^3/uL (130-400); RED BLOOD COUNT 4.45 10^6/uL (4.35-5.85); RED CELL DISTRIBUTION WIDTH 12.6 % (10.0-14.5); WHITE BLOOD COUNT 10.3 10^3/uL (4.3-11.0)
[2018-03-25] MEDS ORDERED: NS 250 ML (IVPB) BAG IV ONE (18:30)
[2018-03-25] MEDS ORDERED: IOHEXOL 350 MG/ML 100 ML (OMNIPAQUE 350) VIAL IV ONE (18:30)
[2018-03-25] MEDS ORDERED: CATHETER FLUSH 10 ML SYR IV PRN (18:30)
--- NOTE | 2018-03-25 18:55 | Diagnostic Imaging Report ---
PROCEDURE: CT abdomen and pelvis with and without contrast. TECHNIQUE: Precontrast acquisitions were acquired through the abdomen and pelvis. Multiple contiguous axial images were obtained through the abdomen and pelvis after the administration of intravenous contrast. INDICATION: Diffuse left lower abdominal pain for one day. History of cervical cancer. History of colorectal cancer. COMPARISON: Prior study from 04/15/2017. FINDINGS: There is a 1 cm cyst in the liver with no suspicious liver lesions seen. The gallbladder and bile ducts are normal. The spleen, pancreas and adrenals are normal. There is a 2 mm nonobstructing calculus in the lower pole of the right kidney. The left kidney is normal. The ureters and bladder are normal. There is no pelvic mass. There is spasm and edema of the descending colon with pericolonic edema. There is a small amount of fluid but no drainable abscess is seen. This is consistent with colitis and may be secondary to a localized diverticulitis as there does appear to be a diverticulum present at this site. There is no obstruction. The remainder of the colon is within normal limits. There is no free air. There is no acute bony abnormality. IMPRESSION: There is localized inflammation of the distal descending colon consistent with a colitis. Dictated by: Dictated on workstation # [id number]
--- NOTE | 2018-03-25 19:08 | ED Abdominal Pain ---
General Chief Complaint: Abdominal/GI Problems Stated Complaint: PAIN IN LOWER ABD Nursing Triage Note: pt reports lower pelvic/abdominal pain on r and l side starting at 0200 this am. Sepsis Screen: No Definite Risk History of Present Illness Date Seen by Provider: Mar 25, 2018 Time Seen by Provider: 17:00 Initial Comments 33-year-old female presents with lower abdominal pain. She believes it starts anteriorly and radiates to the posterior. She reports it to be slightly worse on the left than the right lower quadrants. She has a significant past medical history including colorectal and cervical cancer. She reports approximately 20 inches of colon being removed. However upon further questioning she states that it was small intestine. Her colon surgery was completed at cancer treatment [facility]. She is also had a history of fibrocystic breast disease. She has a history of diverticulitis. She denies any vomiting or diarrhea. History of previous appendectomy. 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 She awoke with the pain at 1400 today Timing/Duration: 4-6 Hours Severity/Quality: Moderate Location: RLQ, LLQ Radiation: Back Activities at Onset: None Modifying Factors: Improves With Lying down, Improves With Resting Associated Symptoms: Back Pain; No Chest Pain, No Fever/Chills, No Heartburn, No Nausea/Vomiting, No Shortness of Air Allergies and Home Medications Allergies Coded Allergies: cefaclor (Verified Allergy, Unknown, 12/19/13) latex (Verified Allergy, Unknown, 12/19/13) peanut (Verified Allergy, Unknown, 12/19/13) strawberry (Verified Allergy, Unknown, 10/28/16) venom-honey bee (Verified Allergy, Unknown, 12/19/13) Home Medications Ciprofloxacin HCl 500 Mg Tablet, 500 MG PO BID Prescribed by: VENKAT BHATIA on 03/25/181908 Levetiracetam 500 Mg Tablet, 1,500 MG PO BID, (Reported) TAKES 3 (500 MG) TABLETS Levofloxacin 500 Mg Tablet, 500 MG PO DAILY Prescribed by: JULIO QUINN on 09/19/171414 Metronidazole 500 Mg Tablet, 500 MG PO Q6H Prescribed by: VENKAT BHATIA on 03/25/181908 Prednisone 50 Mg Tab, 50 MG PO DAILY Prescribed by: JULIO QUINN on 09/19/171414 Prednisone 20 Mg Tab, 40 MG PO DAILY Prescribed by: MARLEN HARRY on 02/28/182150 Topiramate 200 Mg Tablet, 200 MG PO BID, (Reported) Tramadol HCl 50 Mg Tablet, 50 MG PO Q8H PRN for PAIN-MODERATE TO SEVERE Prescribed by: VENKAT BHATIA on 03/25/18 1909 Patient Home Medication List Home Medication List Reviewed: Yes Review of Systems Review of Systems Constitutional: no symptoms reported, see HPI Gastrointestinal: See HPI, Abdomen Distended, Abdominal Pain; Denies Blood Streaked Stools, Denies Constipated, Denies Diarrhea, Denies Difficulty Swallowing, Denies Nausea, Denies Poor Appetite, Denies Poor Fluid Intake, Denies Vomiting All Other Systems Reviewed Negative Unless Noted: Yes Past Csgaamh-Prdlqv-Gbbcni Hx Past Med/Social Hx: Reviewed Nursing Past Med/Soc Hx Patient Social History Alcohol Use: Denies Use Recreational Drug Use: No Smoking Status: Never a Smoker 2nd Hand Smoke Exposure: No Recent Foreign Travel: No Contact w/Someone Who Travel: No Recent Infectious Disease Expo: No Recent Hopitalizations: No Physical Abuse: No Sexual Abuse: No Mistreated: No Fear: No Immunizations Up To Date Tetanus Booster (TDap): More than 5yrs PED Vaccines UTD: Yes Date of Pneumonia Vaccine: Jun 14, 2011 Date of Influenza Vaccine: Mar 13, 2017 Seasonal Allergies Seasonal Allergies: No Past Medical History Surgeries: Yes Abdominal, Appendectomy, Bowel Surgery, Breast, Orthopedic Respiratory: Yes ("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") Asthma, Pneumonia Currently Using CPAP: No Currently Using BIPAP: No Cardiac: Yes (cath with "some kind of intervention") Neurological: Yes Seizure Disorder Reproductive Disorders: Yes (CHRONIC PID, CHRONIC PELVIC PAIN; CERVICAL DYSPLASIA-S/P CRYO OF CERVIX X 2) Female Reproductive Disorders: Pelvic Inflammatory Dis, Ovarian Cyst Sexually Transmitted Disease: No HIV/AIDS: No Genitourinary: Yes Kidney Stones Gastrointestinal: Yes (SEE SURGICAL HISTORY ) Hemorrhoids, Gall Bladder Disease Musculoskeletal: Yes (SEE SURGICAL HISTORY) Endocrine: Yes (hypoglycemia ) HEENT: Yes ("VOCAL CORD DYSFUNCTION" SELF REPORTED) Loss of Vision: Denies Hearing Impairment: Denies Cancer: Yes Breast, Cervical, Colon Did You Recieve Any Treatments: Yes What Type of Treatment Did You: Chemotherapy, Radiation, Surgical Intervention Psychosocial: Yes Pseudo Seizures Integumentary: Yes Psoriasis Blood Disorders: No Family Medical History Patient reports no known family medical history. No Pertinent Family Hx Physical Exam Vital Signs Vital Signs - First Documented 03/25/18 18:00 Temp 97.3 Pulse 88 Resp 20 B/P (MAP) 106/76 (86) Pulse Ox 97 Capillary Refill : Less Than 3 Seconds Height/Weight/BMI Height: 5'8.00" Weight: 190lbs. 6.4oz. 86.792694tc; 29.3 BMI Method:Estimated General Appearance: WD/WN, no apparent distress HEENT: PERRL/EOMI, normal ENT inspection, TMs normal, pharynx normal Neck: non-tender, full range of motion, supple Respiratory: chest non-tender, lungs clear, normal breath sounds Cardiovascular: normal peripheral pulses, regular rate, rhythm, no edema Gastrointestinal: normal bowel sounds, soft, tenderness (bilateral lower quadrants.), other (well-healed suprapubic incision scar.) Extremities: normal range of motion, non-tender, normal inspection, normal capillary refill Neurologic/Psychiatric: no motor/sensory deficits, alert, normal mood/affect, oriented x 3 Skin: normal color, warm/dry Progress/Results/Core Measures Results/Orders Lab Results Laboratory Tests Test 03/25/18 16:50 03/25/18 17:36 Range/Units Urine Color YELLOW Urine Clarity CLEAR Urine pH 7 5-9 Urine Specific [place] 1.010 L 1.016-1.022 Urine Protein NEGATIVE NEGATIVE Urine Glucose (UA) NEGATIVE NEGATIVE Urine Ketones NEGATIVE NEGATIVE Urine Nitrite NEGATIVE NEGATIVE Urine Bilirubin NEGATIVE NEGATIVE Urine Urobilinogen NORMAL NORMAL MG/DL Urine Leukocyte Esterase NEGATIVE NEGATIVE Urine RBC (Auto) 1+ H NEGATIVE Urine RBC 0-2 /HPF Urine WBC NONE /HPF Urine Squamous Epithelial Cells 0-2 /HPF Urine Crystals NONE /LPF Urine Bacteria NONE /HPF Urine Casts NONE /LPF Urine Mucus NEGATIVE /LPF Urine Culture Indicated NO Urine Test NEGATIVE NEGATIVE White Blood Count 10.3 4.3-11.0 10^3/uL Red Blood Count 4.45 4.35-5.85 10^6/uL Hemoglobin 14.3 11.5-16.0 G/DL Hematocrit 40 35-52 % Mean Corpuscular Volume 89 80-99 FL Mean Corpuscular Hemoglobin 32 25-34 PG Mean Corpuscular Hemoglobin Concent 36 32-36 G/DL Red Cell Distribution Width 12.6 10.0-14.5 % Platelet Count 171 130-400 10^3/uL Mean Platelet Volume 9.4 7.4-10.4 FL Neutrophils (%) (Auto) 79 H 42-75 % Lymphocytes (%) (Auto) 10 L 12-44 % Monocytes (%) (Auto) 10 0-12 % Eosinophils (%) (Auto) 1 0-10 % Basophils (%) (Auto) 0 0-10 % Neutrophils # (Auto) 8.2 H 1.8-7.8 X 10^3 Lymphocytes # (Auto) 1.0 1.0-4.0 X 10^3 Monocytes # (Auto) 1.1 H 0.0-1.0 X 10^3 Eosinophils # (Auto) 0.1 0.0-0.3 10^3/uL Basophils # (Auto) 0.0 0.0-0.1 10^3/uL Sodium Level 138 135-145 MMOL/L Potassium Level 3.8 3.6-5.0 MMOL/L Chloride Level 103 98-107 MMOL/L Carbon Dioxide Level 23 21-32 MMOL/L Anion Gap 12 5-14 MMOL/L Blood Urea Nitrogen 12 7-18 MG/DL Creatinine 0.77 0.60-1.30 MG/DL Estimat Glomerular Filtration Rate > 60 BUN/Creatinine Ratio 16 Glucose Level 82 70-105 MG/DL Calcium Level 9.4 8.5-10.1 MG/DL Corrected Calcium 9.2 8.5-10.1 MG/DL Total Bilirubin 0.9 0.1-1.0 MG/DL Aspartate Amino Transf (AST/SGOT) 17 5-34 U/L Alanine Aminotransferase (ALT/SGPT) 28 0-55 U/L Alkaline Phosphatase 62 40-136 U/L Total Protein 6.9 6.4-8.2 GM/DL Albumin 4.3 3.2-4.5 GM/DL My Orders Orders - VENKAT BHATIA Ua Culture If Indicated (03/25/18 16:14) Cbc With Automated Diff (03/25/18 16:29) Comprehensive Metabolic Panel (03/25/18 16:29) Hcg,Qualitative Urine (03/25/18 17:07) Saline Lock/Iv-Start (03/25/18 17:07) Ketorolac Injection (Toradol Injection) (03/25/18 17:07) Ct Abdomen/Pelvis W Wo (03/25/18 18:09) Iohexol Injection (Omnipaque 350 Mg/Ml 1 (03/25/18 18:30) Sodium Chloride Flush (Catheter Flush Sy (03/25/18 18:30) Ns (Ivpb) (Sodium Chloride 0.9%) (03/25/18 18:30) Pharmacy Communication (Pharmacy Communi (03/25/18 18:28) Medications Given in ED Current Medications Medications Dose Ordered Sig/Sourav Route Start Time Stop Time Status Last Admin Dose Admin Iohexol 100 ml ONCE ONCE IV 03/25/18 18:30 03/25/18 18:31 DC 03/25/18 18:30 100 ML Sodium Chloride 10 ml NEEDED PRN IV 03/25/18 18:30 03/25/18 19:33 DC 03/25/18 18:30 10 ML Sodium Chloride 250 ml ONCE ONCE IV 03/25/18 18:30 03/25/18 18:31 DC 03/25/18 18:30 80 ML Vital Signs/I&O 03/25/18 03/25/18 18:00 19:33 Temp 97.3 Pulse 88 87 Resp 20 20 B/P (MAP) 106/76 (86) 123/85 (98) Pulse Ox 97 98 Blood Pressure Mean: 86 Progress Progress Note : Time: 17:00 Progress Note Initial evaluation completed, recommended Toradol 30 mg IV for pain, labs and reevaluation. 1800 labs essentially normal, recommended CT with and without contrast of the abdomen and pelvis. 1929 CT results compatible with colitis or diverticulitis, questionable free air. Consult to Dr. Mohr. Patient reports to be feeling better since the Toradol. She was used to be discharged to home for management from there. She is requesting to return to work tonight. 1944 Dr. Mohr in emergency department, reviewed her past medical history and exam. Recommend she have a follow-up colonoscopy in a proximally 4-6 weeks. 1999 discharge instructions and return precautions reviewed with the patient. All questions answered. Diagnostic Imaging Diagonstic Imaging: CT Plain Films/CT/US/NM/MRI: abdomen, pelvis Comments NAME: SHRUTI ALCARAZANNIE Peña [facility] REC#: [id number] PT STATUS: REG ER : 1985 PHYSICIAN: VENKAT BHATIA ADMIT DATE: 03/25/18/ER Draft Date of Exam:03/25/18 CT ABDOMEN/PELVIS W WO PROCEDURE: CT abdomen and pelvis with and without contrast. TECHNIQUE: Precontrast acquisitions were acquired through the abdomen and pelvis. Multiple contiguous axial images were obtained through the abdomen and pelvis after the administration of intravenous contrast. INDICATION: Diffuse left lower abdominal pain for one day. History of cervical cancer. History of colorectal cancer. COMPARISON: Prior study from 04/15/2017. FINDINGS: There is a 1 cm cyst in the liver with no suspicious liver lesions seen. The gallbladder and bile ducts are normal. The spleen, pancreas and adrenals are normal. There is a 2 mm nonobstructing calculus in the lower pole of the right kidney. The left kidney is normal. The ureters and bladder are normal. There is no pelvic mass. There is spasm and edema of the descending colon with pericolonic edema. There is a small amount of fluid but no drainable abscess is seen. This is consistent with colitis and may be secondary to a localized diverticulitis as there does appear to be a diverticulum present at this site. There is no obstruction. The remainder of the colon is within normal limits. There is no free air. There is no acute bony abnormality. IMPRESSION: There is localized inflammation of the distal descending colon consistent with a colitis. Dictated on workstation # [id number] Dict: 03/25/18 1842 Trans: 03/25/18 1854 [facility] [id number] Interpreted by: SHERI HILL MD Electronically signed by: Reviewed: Reviewed by Me Departure Impression Primary Impression: Diverticulitis of intestine Qualified Codes: K57.32 - Diverticulitis of large intestine without perforation or abscess without bleeding Disposition: HOME, SELF-CARE Condition: Improved Departure-Patient Inst. Decision time for Depature: 19:30 Referrals: NO,LOCAL PHYSICIAN (PCP/Family) Primary Care Physician Patient Instructions: Diverticulitis (DC) Add. Discharge Instructions: Clear liquid diet, 2-4 days, until abdominal pain is improving. Call Dr. Mohr's office Tuesday for follow up appt. [phone] Take cipro and flagyal as prescribed. You may take Tylenol 650 mg alternating with ibuprofen 600 mg every 4 hours for mild to moderate pain. For more severe pain he may take tramadol 1 tablet every 8 hours. Follow-up with your primary care provider in 2-3 days, sooner if symptoms are not improving. Return to emergency department for fever greater than 101 not relieved by Tylenol and ibuprofen, persistent vomiting, increased abdominal pain, or new urgent concerns All discharge instructions reviewed with patient and/or family. Voiced understanding. Scripts Tramadol HCl (Tramadol HCl) 50 Mg Tablet 50 MG PO Q8H PRN for PAIN-MODERATE TO SEVERE, #20 TAB 0 Refills Prov: VENKAT BHATIA 03/25/18 Ciprofloxacin HCl (Cipro) 500 Mg Tablet 500 MG PO BID, #14 TAB 0 Refills Prov: VENKAT BHATIA 03/25/18 Metronidazole (Flagyl) 500 Mg Tablet 500 MG PO Q6H, #24 TAB 0 Refills Prov: VENKAT BHATIA 03/25/18 Copy Copies To 1: ISMAEL MOHR AMY ARNP Mar 25, 2018 19:08
[2018-03-25] MEDS ORDERED: TRAM50TA2 PO (19:09)
[2018-03-25] MEDS ORDERED: CIPR-225 PO (19:09)
[2018-03-25] MEDS ORDERED: METR500T PO (19:09)
[2018-03-25 19:19] LABS: ALANINE AMINOTRANSFERASE 28 U/L (0-55); ALBUMIN 4.3 GM/DL (3.2-4.5); ALKALINE PHOSPHATASE 62 U/L (40-136); BILIRUBIN,TOTAL 0.9 MG/DL (0.1-1.0); BUN/CREATININE RATIO 16; CALCIUM 9.4 MG/DL (8.5-10.1); CARBON DIOXIDE 23 MMOL/L (21-32); CHLORIDE 103 MMOL/L (98-107); CREATININE SERUM 0.77 MG/DL (0.60-1.30); GFR ESTIMATED > 60; GLUCOSE 82 MG/DL (70-105); POTASSIUM 3.8 MMOL/L (3.6-5.0); SODIUM 138 MMOL/L (135-145); TOTAL PROTEIN 6.9 GM/DL (6.4-8.2)
[2018-03-25 19:33] VITALS: BP 123/85
--- NOTE | 2018-03-25 20:02 | Consultation ---
History of Present Illness History of Present Illness Patient Consulted On(marita/time) 03/25/18 19:55 Time Seen by Provider: 19:21 History of Present Illness Surgery asked to consult regarding Colitis. HPI: Pt states she woke up with left sided abdominal pain, has not had pain like this before. Pain was sharp, but now basically gone with the Toradol shot. She has a history of "colorectal cancer, they removed 22 inches of my intestine". She states the surgery was March 2016 and has had two colonoscopies since then; they found polyps last time and she thinks she was told she has Diverticula "told not to eat any nuts". She denied diarrhea or constipation. Pain was rated as 6 out of 10, but now a 1-2. She would like to go to work tonight. Allergies and Home Medications Allergies Coded Allergies: cefaclor (Verified Allergy, Unknown, 12/19/13) latex (Verified Allergy, Unknown, 12/19/13) peanut (Verified Allergy, Unknown, 12/19/13) strawberry (Verified Allergy, Unknown, 10/28/16) venom-honey bee (Verified Allergy, Unknown, 12/19/13) Home Medications Ciprofloxacin HCl 500 Mg Tablet, 500 MG PO BID Prescribed by: VENKAT BHATIA on 03/25/181908 Levetiracetam 500 Mg Tablet, 1,500 MG PO BID, (Reported) TAKES 3 (500 MG) TABLETS Levofloxacin 500 Mg Tablet, 500 MG PO DAILY Prescribed by: JULIO QUINN on 09/19/17 141 Metronidazole 500 Mg Tablet, 500 MG PO Q6H Prescribed by: VENKAT BHATIA on 03/25/181908 Prednisone 50 Mg Tab, 50 MG PO DAILY Prescribed by: JULIO QUINN on 09/19/17 141 Prednisone 20 Mg Tab, 40 MG PO DAILY Prescribed by: MARLEN HARRY on 02/28/18 2151 Topiramate 200 Mg Tablet, 200 MG PO BID, (Reported) Tramadol HCl 50 Mg Tablet, 50 MG PO Q8H PRN for PAIN-MODERATE TO SEVERE Prescribed by: VENKAT BHATIA on 03/25/181908 Patient Home Medication List Home Medication List Reviewed: Yes Past Hdnacga-Wdrjto-Snxgbt Hx Patient Social History Alcohol Use: Denies Use Recreational Drug Use: No Smoking Status: Never a Smoker 2nd Hand Smoke Exposure: No Recent Foreign Travel: No Contact w/Someone Who Travel: No Recent Infectious Disease Expo: No Recent Hopitalizations: No Immunizations Up To Date Tetanus Booster (TDap): More than 5yrs PED Vaccines UTD: Yes Date of Pneumonia Vaccine: Jun 14, 2011 Date of Influenza Vaccine: Mar 13, 2017 Seasonal Allergies Seasonal Allergies: No Surgeries History of Surgeries: Yes Surgeries: Abdominal, Appendectomy, Bowel Surgery, Breast, Orthopedic Respiratory History of Respiratory Disorde: Yes ("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") Respiratory Disorders: Asthma, Pneumonia Cardiovascular History of Cardiac Disorders: Yes (cath with "some kind of intervention") Neurological History of Neurological Disord: Yes Neurological Disorders: Seizure Disorder Reproductive System Hx Reproductive Disorders: Yes (CHRONIC PID, CHRONIC PELVIC PAIN; CERVICAL DYSPLASIA-S/P CRYO OF CERVIX X 2) Sexually Transmitted Disease: No HIV/AIDS: No Female Reproductive Disorders: Pelvic Inflammatory Dis, Ovarian Cyst Genitourinary History of Genitourinary Disor: Yes Genitourinary Disorders: Kidney Stones Gastrointestinal History of Gastrointestinal Di: Yes (SEE SURGICAL HISTORY ) Gastrointestinal Disorders: Hemorrhoids, Gall Bladder Disease Musculoskeletal History of Musculoskeletal Dis: Yes (SEE SURGICAL HISTORY) Endocrine History of Endocrine Disorders: Yes (hypoglycemia ) HEENT History of HEENT Disorders: Yes ("VOCAL CORD DYSFUNCTION" SELF REPORTED) Loss of Vision: Denies Hearing Impairment: Denies Cancer History of Cancer: Yes Cancer: Breast, Cervical, Colon Psychosocial History of Psychiatric Problem: Yes Behavioral Health Disorders: Pseudo Seizures Integumentary History of Skin or Integumenta: Yes Skin/Integumentary Disorders: Psoriasis Blood Transfusions History of Blood Disorders: No Family Medical History Significant Family History: GI Disease (Pt states her son had some kind of GI problem "with spots in his colon and they told me it was hereditary; thats how I found out about my problem".) Family Medial History: Patient reports no known family medical history. Review of Systems-General Constitutional: No chills, No diaphoresis, No weight loss EENTM: No blurred vision, No double vision, No mouth swelling, No epistaxis, No nose congestion Respiratory: No cough, No dyspnea on exertion, No short of breath Cardiovascular: No chest pain, No edema, No palpitations Gastrointestinal: LUQ; No diarrhea, No hematemesis, No jaundice Genitourinary: No dysuria, No frequency, No hematuria Musculoskeletal: back pain, joint pain, muscle stiffness Skin: No change in color, No change in hair/nails Psychiatric/Neurological: Anxiety, Depressed; Denies Seizure, Denies Tremors Other pt denies any abnormal bruising or bleeding Physical Exam-General Problems Physical Exam Vital Signs Vital Signs - First Documented 03/25/18 18:00 Temp 97.3 Pulse 88 Resp 20 B/P (MAP) 106/76 (86) Pulse Ox 97 Capillary Refill : Less Than 3 Seconds General Appearance: WD/WN, no apparent distress Eyes: Bilateral Eye PERRL, Bilateral Eye EOMI HEENT: pharynx normal; No scleral icterus (R), No scleral icterus (L) Neck: non-tender, full range of motion, supple, normal inspection Respiratory: chest non-tender, lungs clear, normal breath sounds, no respiratory distress, no accessory muscle use Cardiovascular: regular rate, rhythm, no edema, no murmur Gastrointestinal: normal bowel sounds, soft, no organomegaly, tenderness (LUQ and LLQ), hernia (umbilical) Rectal: deferred Back: no CVA tenderness, no vertebral tenderness Extremities: normal range of motion, non-tender, normal inspection, no pedal edema, no calf tenderness, normal capillary refill 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, no motor/sensory deficits, alert, normal mood/affect, oriented x 3 Skin: normal color, warm/dry Lymphatic: no adenopathy (neck, axilla or groin) Data Review Labs Laboratory Tests 03/25/18 16:50: Urine Color YELLOW, Urine Clarity CLEAR, Urine pH 7, Urine Specific [place] 1.010L, Urine Protein NEGATIVE, Urine Glucose (UA) NEGATIVE, Urine Ketones NEGATIVE, Urine Nitrite NEGATIVE, Urine Bilirubin NEGATIVE, Urine Urobilinogen NORMAL, Urine Leukocyte Esterase NEGATIVE, Urine RBC (Auto) 1+H, Urine RBC 0-2, Urine WBC NONE, Urine Squamous Epithelial Cells 0-2, Urine Crystals NONE, Urine Bacteria NONE, Urine Casts NONE, Urine Mucus NEGATIVE, Urine Culture Indicated NO, Urine Test NEGATIVE 03/25/18 17:36: White Blood Count 10.3, Red Blood Count 4.45, Hemoglobin 14.3, Hematocrit 40, Mean Corpuscular Volume 89, Mean Corpuscular Hemoglobin 32, Mean Corpuscular Hemoglobin Concent 36, Red Cell Distribution Width 12.6, Platelet Count 171, Mean Platelet Volume 9.4, Neutrophils (%) (Auto) 79H, Lymphocytes (%) (Auto) 10L , Monocytes (%) (Auto) 10, Eosinophils (%) (Auto) 1, Basophils (%) (Auto) 0, Neutrophils # (Auto) 8.2H, Lymphocytes # (Auto) 1.0, Monocytes # (Auto) 1.1H, Eosinophils # (Auto) 0.1, Basophils # (Auto) 0.0, Sodium Level 138, Potassium Level 3.8, Chloride Level 103, Carbon Dioxide Level 23, Anion Gap 12, Blood Urea Nitrogen 12, Creatinine 0.77, Estimat Glomerular Filtration Rate > 60, BUN/ Creatinine Ratio 16, Glucose Level 82, Calcium Level 9.4, Corrected Calcium 9.2 , Total Bilirubin 0.9, Aspartate Amino Transf (AST/SGOT) 17, Alanine Aminotransferase (ALT/SGPT) 28, Alkaline Phosphatase 62, Total Protein 6.9, Albumin 4.3 Assessment/Plan Assessment/Plan Assessment/Plan Colitis Pt wants to go home and pain is localized (not general with rigid abdomen) and basically gone with Toradol. Radiologist report thinks this is a colitis and most likely due to Diverticulitis. She is being sent home on Oral ABX and will follow with me in my office. She will need a colonoscopy in 4 weeks, once the inflammation has gone down. I looked at CT myself and feel like it may even be small perforation, not a diverticula. However, since she is doing so well agree with letting her go home; to return if pain gets worse or she starts running a fever or anything else. She had no questions. I would like to get all her old reports, because I am confused about her past medical and surgical history. ISMAEL MOHR DO Mar 25, 2018 20:02
== END 2018-03-25 19:33 | disposition home or self-care (01) ==
LOC: EDUNIT# 16:07 → ER 16:09
DX: K57.32 Diverticulitis of large intestine without perforation or abscess without bleeding (principal); J45.909 Unspecified asthma, uncomplicated; G40.909 Epilepsy, unspecified, not intractable, without status epilepticus; Z85.038 Personal history of other malignant neoplasm of large intestine; Z92.21 Personal history of antineoplastic chemotherapy; Z85.3 Personal history of malignant neoplasm of breast; Z87.442 Personal history of urinary calculi; Z87.448 Personal history of other diseases of urinary system; Z85.41 Personal history of malignant neoplasm of cervix uteri; Z87.19 Personal history of other diseases of the digestive system; Z90.89 Acquired absence of other organs; Z79.52 Long term (current) use of systemic steroids; Z88.8 Allergy status to other drugs, medicaments and biological substances; Z91.040 Latex allergy status; Z87.01 Personal history of pneumonia (recurrent)
CPT/HCPCS: 36415; 74178; 80053; 81000; 84703; 85025

== ENCOUNTER 2018-04-27 20:11 | Emergency (ER) | payer MEDICAID ==
[~2018-04-27 20:11] MED LIST changes: +METR-197 PO; -METR500T21 PO; +TRAM50TA2 PO
== END 2018-04-27 22:20 | disposition left against medical advice (07) ==
LOC: EDUNIT# 20:11 → ER 20:13
DX: O20.9 Hemorrhage in early pregnancy, unspecified (principal); Z3A.01 Less than 8 weeks gestation of pregnancy

== ENCOUNTER 2018-05-20 04:34 | Emergency (ER) | payer MEDICAID ==
[~2018-05-20] VITALS: Ht 162.6 cm; Wt 68.0 kg
[2018-05-20] MEDS ORDERED: NS IV 1000 ML 1,000 ML IV ONE ×2 (04:45→05:53)
[2018-05-20 04:54] LABS: BASOPHILS % (AUTO) 0 % (0-10); EOSINOPHILS # (AUTO) 0.2 10^3/uL (0.0-0.3); EOSINOPHILS % (AUTO) 3 % (0-10); HEMATOCRIT 39 % (35-52); HEMOGLOBIN 13.2 G/DL (11.5-16.0); LYMPHOCYTES # (AUTO) 2.5 X 10^3 (1.0-4.0); LYMPHOCYTES % (AUTO) 38 % (12-44); MEAN CORPUSCULAR HEMOGLOBIN 31 PG (25-34); MEAN CORPUSCULAR HGB CONC 34 G/DL (32-36); MEAN CORPUSCULAR VOLUME 92 FL (80-99); MEAN PLATELET VOLUME 9.8 FL (7.4-10.4); MONOCYTES # (AUTO) 0.8 X 10^3 (0.0-1.0); MONOCYTES % (AUTO) 12 % (0-12); NEUTROPHILS # (AUTO) 3.1 X 10^3 (1.8-7.8); NEUTROPHILS % (AUTO) 47 % (42-75); PLATELET COUNT 168 10^3/uL (130-400); RED BLOOD COUNT 4.23 10^6/uL (4.35-5.85); RED CELL DISTRIBUTION WIDTH 12.8 % (10.0-14.5); WHITE BLOOD COUNT 6.6 10^3/uL (4.3-11.0)
[2018-05-20 05:07] LABS: ALANINE AMINOTRANSFERASE 30 U/L (0-55); ALBUMIN 4.1 GM/DL (3.2-4.5); ALKALINE PHOSPHATASE 61 U/L (40-136); BILIRUBIN,TOTAL 0.3 MG/DL (0.1-1.0); BUN/CREATININE RATIO 15; CALCIUM 9.1 MG/DL (8.5-10.1); CARBON DIOXIDE 22 MMOL/L (21-32); CHLORIDE 106 MMOL/L (98-107); CREATININE SERUM 0.87 MG/DL (0.60-1.30); GFR ESTIMATED > 60; GLUCOSE 114 MG/DL (70-105); MAGNESIUM 2.3 MG/DL (1.8-2.4); SODIUM 139 MMOL/L (135-145); TOTAL PROTEIN 6.9 GM/DL (6.4-8.2)
--- NOTE | 2018-05-20 05:45 | ED Neurological Problem ---
General Chief Complaint: Neurological Problems Stated Complaint: SEIZURE Nursing Triage Note: PT TO ROOM #5 [facility]IA [facility] C[facility] FROM [facility] OF EMPLOYMENT. [facility] REPORT C[employer]ORKERS SAW PT COLLAPSE WHILE HAVING A SEIZURE IN THE HALLWAY. UPON ARRIVAL TO ED PT NOTED TO BE UNRESPONSIVE VERBAL STIMULI. RESPIRATIONS EVEN AND NON LABORED. NO SEIZURE ACTIVITY NOTED. 3MM PERRLA. Nursing Sepsis Screen: No Definite Risk Source: patient Exam Limitations: no limitations (RAMON REYES MD) History of Present Illness Date Seen by Provider: May 20, 2018 Time Seen by Provider: 04:36 Initial Comments This 33-year-old woman presents to the emergency room via EMS after having seizure-like activity at work. According to EMS patient sat herself down in the hallway and then began to have tremoring activity. She was having some rigid movements when they arrived. Vital signs are normal. Patient has been unresponsive for EMS but features of her exam are inconsistent. For example, she has purposeful and reflexive movements of the eyes when touched or when eyelids are opened. She forcibly closes her eyes. EMS also reports patient shook her head no when they said she may need to be intubated. Patient also diverted her hand when it was released over her face so as to avoid not bumping her face with her hand. She is not responsive for ER staff on arrival but findings on assessment are similar to those stated by EMS. Review of patient's chart notes a very interesting history. Patient claims to have had multiple types of cancer including cervical, breast, and colon. She claims to have had a colon resection. She also claims to have had her gallbladder removed. However, on the most recent CT scan there is no evidence of these surgeries. In fact she does have a gallbladder. Patient also has a long tattoo over her lower abdomen representing a surgical scar. I have seen this patient for seizure-like presentations in the past. 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 Fingerstick blood sugar was 126. (RAMON REYES MD) Allergies and Home Medications Allergies Coded Allergies: cefaclor (Verified Allergy, Unknown, 12/19/13) latex (Verified Allergy, Unknown, 12/19/13) peanut (Verified Allergy, Unknown, 12/19/13) strawberry (Verified Allergy, Unknown, 10/28/16) venom-honey bee (Verified Allergy, Unknown, 12/19/13) Home Medications Ciprofloxacin HCl 500 Mg Tablet, 500 MG PO BID Prescribed by: VENKAT BHATIA on 03/25/181908 Levetiracetam 500 Mg Tablet, 1,500 MG PO BID, (Reported) TAKES 3 (500 MG) TABLETS Levofloxacin 500 Mg Tablet, 500 MG PO DAILY Prescribed by: JULIO QUINN on 09/19/171414 Metronidazole 500 Mg Tablet, 500 MG PO Q6H Prescribed by: VENKAT BHATIA on 03/25/181908 Prednisone 50 Mg Tab, 50 MG PO DAILY Prescribed by: JULIO QUINN on 09/19/171414 Prednisone 20 Mg Tab, 40 MG PO DAILY Prescribed by: MARLEN HARRY on 02/28/182150 Topiramate 200 Mg Tablet, 200 MG PO BID, (Reported) Tramadol HCl 50 Mg Tablet, 50 MG PO Q8H PRN for PAIN-MODERATE TO SEVERE Prescribed by: VENKAT BHATIA on 03/25/181908 Patient Home Medication List Home Medication List Reviewed: Yes (ARMON REYES MD) Review of Systems Review of Systems Constitutional: no symptoms reported Eyes: No Symptoms Reported Ears, Nose, Mouth, Throat: no symptoms reported Respiratory: no symptoms reported Cardiovascular: no symptoms reported Gastrointestinal: no symptoms reported Genitourinary: no symptoms reported : No Musculoskeletal: no symptoms reported Skin: see HPI Psychiatric/Neurological: See HPI Endocrine: No Symptoms Reported Hematologic/Lymphatic: No Symptoms Reported (RAMON REYES MD) Past Mmkpumk-Eyexlc-Dxopbg Hx Patient Social History Alcohol Use: Denies Use Recreational Drug Use: No 2nd Hand Smoke Exposure: No Recent Foreign Travel: No Contact w/Someone Who Travel: No Recent Infectious Disease Expo: No Recent Hopitalizations: No (RAMON REYES MD) Immunizations Up To Date Tetanus Booster (TDap): More than 5yrs PED Vaccines UTD: Yes Date of Pneumonia Vaccine: Jun 14, 2011 Date of Influenza Vaccine: Mar 13, 2017 (RAMON REYES MD) Seasonal Allergies Seasonal Allergies: No (RAMON REYES MD) Past Medical History Surgeries: Yes Abdominal, Appendectomy, Bowel Surgery, Breast, Orthopedic Respiratory: Yes ("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") Asthma, Pneumonia Currently Using CPAP: No Currently Using BIPAP: No Cardiac: Yes (cath with "some kind of intervention") Neurological: Yes Seizure Disorder Reproductive Disorders: Yes (CHRONIC PID, CHRONIC PELVIC PAIN; CERVICAL DYSPLASIA-S/P CRYO OF CERVIX X 2) Female Reproductive Disorders: Pelvic Inflammatory Dis, Ovarian Cyst Sexually Transmitted Disease: No HIV/AIDS: No Genitourinary: Yes Kidney Stones Gastrointestinal: Yes (SEE SURGICAL HISTORY ) Hemorrhoids, Gall Bladder Disease Musculoskeletal: Yes (SEE SURGICAL HISTORY) Endocrine: Yes (hypoglycemia ) HEENT: Yes ("VOCAL CORD DYSFUNCTION" SELF REPORTED) Loss of Vision: Denies Hearing Impairment: Denies Cancer: Yes (reported history with no evidence in documentation supporting these statements) Breast, Cervical, Colon Did You Recieve Any Treatments: Yes What Type of Treatment Did You: Chemotherapy, Radiation, Surgical Intervention Psychosocial: Yes Pseudo Seizures Integumentary: Yes (tattoo of a surgical scar on the lower abdomen) Psoriasis Blood Disorders: No (RAMON REYES MD) Family Medical History Patient reports no known family medical history. GI Disease (RAMON REYES MD) Physical Exam Vital Signs Vital Signs - First Documented 05/20/18 04:35 Temp 96.7 Pulse 76 Resp 18 B/P (MAP) 118/78 (91) Pulse Ox 100 O2 Delivery Room Air (JACQUELINE CLAYTON MD) Vital Signs Capillary Refill : Less Than 3 Seconds (RAMON REYES MD) Height, Weight, BMI Height: 5'4.00" Weight: 150lbs. 6.4oz. 68.083191ng; 29.3 BMI Method:Estimated General Appearance: WD/WN, no apparent distress HEENT: PERRL/EOMI, normal ENT inspection Neck: normal inspection Respiratory: lungs clear, normal breath sounds, no respiratory distress, no accessory muscle use Cardiovascular: regular rate, rhythm, no edema, no murmur Gastrointestinal: normal bowel sounds, non tender, soft Extremities: normal inspection, no pedal edema Neurologic/Psychiatric: other (patient not responding. She does appear to have some purposeful eye movement. She forces eyes closed when they are opened by an examiner.) Skin: normal color, warm/dry, other (tattoo of a surgical scar on the abdomen) (RAMON REYES MD) Progress/Results/Core Measures Results/Orders Lab Results Laboratory Tests Test 05/20/18 04:40 05/20/18 08:22 Range/Units White Blood Count 6.6 4.3-11.0 10^3/uL Red Blood Count 4.23 L 4.35-5.85 10^6/uL Hemoglobin 13.2 11.5-16.0 G/DL Hematocrit 39 35-52 % Mean Corpuscular Volume 92 80-99 FL Mean Corpuscular Hemoglobin 31 25-34 PG Mean Corpuscular Hemoglobin Concent 34 32-36 G/DL Red Cell Distribution Width 12.8 10.0-14.5 % Platelet Count 168 130-400 10^3/uL Mean Platelet Volume 9.8 7.4-10.4 FL Neutrophils (%) (Auto) 47 42-75 % Lymphocytes (%) (Auto) 38 12-44 % Monocytes (%) (Auto) 12 0-12 % Eosinophils (%) (Auto) 3 0-10 % Basophils (%) (Auto) 0 0-10 % Neutrophils # (Auto) 3.1 1.8-7.8 X 10^3 Lymphocytes # (Auto) 2.5 1.0-4.0 X 10^3 Monocytes # (Auto) 0.8 0.0-1.0 X 10^3 Eosinophils # (Auto) 0.2 0.0-0.3 10^3/uL Basophils # (Auto) 0.0 0.0-0.1 10^3/uL Sodium Level 139 135-145 MMOL/L Potassium Level 4.0 3.6-5.0 MMOL/L Chloride Level 106 98-107 MMOL/L Carbon Dioxide Level 22 21-32 MMOL/L Anion Gap 11 5-14 MMOL/L Blood Urea Nitrogen 13 7-18 MG/DL Creatinine 0.87 0.60-1.30 MG/DL Estimat Glomerular Filtration Rate > 60 BUN/Creatinine Ratio 15 Glucose Level 114 H 70-105 MG/DL Calcium Level 9.1 8.5-10.1 MG/DL Corrected Calcium 9.0 8.5-10.1 MG/DL Magnesium Level 2.3 1.8-2.4 MG/DL Total Bilirubin 0.3 0.1-1.0 MG/DL Aspartate Amino Transf (AST/SGOT) 26 5-34 U/L Alanine Aminotransferase (ALT/SGPT) 30 0-55 U/L Alkaline Phosphatase 61 40-136 U/L Total Protein 6.9 6.4-8.2 GM/DL Albumin 4.1 3.2-4.5 GM/DL Serum Test, Qualitative NEGATIVE NEGATIVE Serum Alcohol < 10 <10 MG/DL Urine Opiates Screen NEGATIVE NEGATIVE Urine Oxycodone Screen NEGATIVE NEGATIVE Urine Methadone Screen NEGATIVE NEGATIVE Urine Propoxyphene Screen NEGATIVE NEGATIVE Urine Barbiturates Screen NEGATIVE NEGATIVE Ur Tricyclic Antidepressants Screen NEGATIVE NEGATIVE Urine Phencyclidine Screen NEGATIVE NEGATIVE Urine Amphetamines Screen NEGATIVE NEGATIVE Urine Methamphetamines Screen NEGATIVE NEGATIVE Urine Benzodiazepines Screen NEGATIVE NEGATIVE Urine Cocaine Screen NEGATIVE NEGATIVE Urine Cannabinoids Screen NEGATIVE NEGATIVE (JACQUELINE CLAYTON MD) My Orders Orders - JACQUELINE CLAYTON MD Ct Head Wo (05/20/18 09:21) (JACQUELINE CLAYTON MD) Medications Given in ED Current Medications Medications Dose Ordered Sig/Sourav Route Start Time Stop Time Status Last Admin Dose Admin Ammonia (Aromatic Spirit) 0.33 ml STK-MED ONCE .ROUTE 05/20/18 08:15 05/20/18 08:17 DC 05/20/18 08:32 0.33 ML Sodium Chloride 1,000 ml @ 0 mls/hr Q0M ONCE IV 05/20/18 04:45 05/20/18 04:47 DC 05/20/18 04:53 0 MLS/HR Sodium Chloride 1,000 ml @ 0 mls/hr Q0M ONCE IV 05/20/18 05:53 05/20/18 05:54 DC 05/20/18 06:03 0 MLS/HR (JACQUELINE CLAYTON MD) Vital Signs/I&O 05/20/18 04:35 Temp 96.7 Pulse 76 Resp 18 B/P (MAP) 118/78 (91) Pulse Ox 100 O2 Delivery Room Air (JACQUELINE CLAYTON MD) Blood Pressure Mean: 91 Progress Progress Note : Progress Note Patient is still resting quietly. She does not respond when spoken to but she does have purposeful eye movements and has been observed through the window opening her eyes a little bit. IV fluids are still infusing. Care is being transferred to Dr. Clayton at this time. (RAMON REYES MD) Departure Communication (Admissions) 0800: Took over care of patient from Dr. Luo. The patient had apparently had a seizure-like episode at her work and then had been unresponsive. She was brought here in that state with normal vital signs. She did not give Dr. Luo any history however he was able to review multiple previous reports from other visits. The most recent of these was from September 17. Dr. Olivares dictated in great detail about the multiple surgeries that she had the allegedly undergone for the treatment of various cancers including multiple breast cancers and genitourinary carcinoma. 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 Dr. Luo stated that the patient did not speak to him or respond to noxious stimuli. He did note some fluttering of eyelids. He also noted that she had what appeared to be a tattoo of an incision extending from right to left iliac brim just superior to the pubis. I entered the room and spoke to her without any response. Stroking of the eyelashes produce some fluttering. Manual opening of the eyelid was resisted. Lungs are clear to auscultation CV was regular without murmur abdomen was obese. I agree that the above described findings certainly appears to be a relatively ARTFUL tattoo. Dr. Luo had placed her on IVs with the goal of stimulating urination. She is on her third liter at this point and has not yet requested to urinate nor has she been incontinent. 1038: Because of her lack of response I ordered a CT scan which has been completed and is negative. Her father came into the room and locally and tactilely stimulated her she awakened and sat up. She speaks to me in a lucid fashion and will be discharged. (JACQUELINE CLAYTON MD) Impression Primary Impression: Seizure-like activity Disposition: 01 HOME, SELF-CARE Condition: Improved Departure-Patient Inst. Decision time for Depature: 10:36 (JACQUELINE CLAYTON MD) Referrals: NO,LOCAL PHYSICIAN (PCP/Family) Primary Care Physician Add. Discharge Instructions: All discharge instructions reviewed with patient and/or family. Voiced understanding. Go home to rest. You should not to work your scheduled shift tonight. If feeling well enough you may resume with your scheduled shift on 05/21 RAMON REYES MD May 20, 2018 05:45 JACQUELINE CLAYTON MD May 20, 2018 08:40
[2018-05-20] MEDS ORDERED: NS IV 1000 ML 1,000 ML IV SCH (07:45)
[2018-05-20] MEDS ORDERED: AMMONIA INHALATION 0.33 ML AMP ONE (08:15)
[2018-05-20 08:54] LABS: AMPHETAMINE SCREEN, URINE NEGATIVE (NEGATIVE); BARBITURATE SCREEN URINE NEGATIVE (NEGATIVE); BENZODIAZEPINES SCREEN URINE NEGATIVE (NEGATIVE); CANNABINOID SCREEN, URINE NEGATIVE (NEGATIVE); COCAINE SCREEN URINE NEGATIVE (NEGATIVE); METHADONE STAT NEGATIVE (NEGATIVE); METHAMPHETAMINE SCREEN URINE S NEGATIVE (NEGATIVE); OPIATE SCREEN URINE NEGATIVE (NEGATIVE); OXYCODONE STAT NEGATIVE (NEGATIVE); PROPOXYPHENE STAT NEGATIVE (NEGATIVE); TRICYCLIC ANTIDEPRESSANTS SCRE NEGATIVE (NEGATIVE)
--- NOTE | 2018-05-20 10:17 | Diagnostic Imaging Report ---
PROCEDURE: CT head without contrast. TECHNIQUE: Multiple contiguous axial images were obtained through the brain without the use of intravenous contrast. INDICATION: Seizure. History of cervical and colorectal cancer. COMPARISON: CT head without contrast 09/20/2017. FINDINGS: No intracranial hemorrhage, mass effect, hydrocephalus or extra-axial fluid collections. No CT evidence of a territorial infarction. Osseous structures are intact. The paranasal sinuses and mastoids are clear. IMPRESSION: No acute intracranial CT findings. Dictated by: Dictated on workstation # [id number]
[2018-05-20 10:49] VITALS: BP 121/88
== END 2018-05-20 10:52 | disposition home or self-care (01) ==
LOC: EDUNIT# 04:34 → ER 04:36
DX: R25.9 Unspecified abnormal involuntary movements (principal); J45.909 Unspecified asthma, uncomplicated; G40.909 Epilepsy, unspecified, not intractable, without status epilepticus; Z85.038 Personal history of other malignant neoplasm of large intestine; Z85.3 Personal history of malignant neoplasm of breast; Z85.41 Personal history of malignant neoplasm of cervix uteri; Z92.21 Personal history of antineoplastic chemotherapy; Z87.19 Personal history of other diseases of the digestive system; Z87.442 Personal history of urinary calculi; Z87.448 Personal history of other diseases of urinary system; Z88.8 Allergy status to other drugs, medicaments and biological substances; Z91.040 Latex allergy status; Z79.52 Long term (current) use of systemic steroids; Z90.49 Acquired absence of other specified parts of digestive tract; Z90.89 Acquired absence of other organs; Z98.890 Other specified postprocedural states; Z87.01 Personal history of pneumonia (recurrent)
CPT/HCPCS: 36415; 51702; 70450; 80053; 80306; 80320; 83735; 84703; 85025

== ENCOUNTER 2018-08-03 18:00 | Emergency (ER) | payer MEDICAID ==
[~2018-08-03] VITALS: Ht 177.8 cm; Wt 93.0 kg
[~2018-08-03 18:00] MED LIST changes: +METR-145 PO; -METR-197 PO
--- NOTE | 2018-08-03 18:28 | ED EENT ---
History of Present Illness General Chief Complaint: Head/Cervical Problems Stated Complaint: LUMP IN NECK Nursing Triage Note: STATES SHE HAS HAD A SOFT MOVABLE LUMP IN HER NECK FOR YEARS BUT OVER THE LAST WEEK IT HAS BECAME HARD AND NOT MOVABLE. Source: patient Exam Limitations: no limitations History of Present Illness Date Seen by Provider: Aug 03, 2018 Time Seen by Provider: 18:26 Initial Comments To ER with reports of a lump in the left side of the neck. Been present for many years, mobile and nonpainful. Over the past 4 days it seems to become fixed , non-mobile and tender. No fevers or chills. Timing/Duration: abrupt Severity: mild Location: other Allergies and Home Medications Allergies Coded Allergies: cefaclor (Verified Allergy, Unknown, 12/19/13) latex (Verified Allergy, Unknown, 12/19/13) peanut (Verified Allergy, Unknown, 12/19/13) strawberry (Verified Allergy, Unknown, 10/28/16) venom-honey bee (Verified Allergy, Unknown, 12/19/13) Home Medications Ciprofloxacin HCl 500 Mg Tablet, 500 MG PO BID Prescribed by: VENKAT BHATIA on 03/25/181908 Levetiracetam 500 Mg Tablet, 1,500 MG PO BID, (Reported) TAKES 3 (500 MG) TABLETS Levofloxacin 500 Mg Tablet, 500 MG PO DAILY Prescribed by: JULIO QUINN on 09/19/17 141 Metronidazole 500 Mg Tablet, 500 MG PO Q6H Prescribed by: VENKAT BHATIA on 03/25/181908 Prednisone 50 Mg Tab, 50 MG PO DAILY Prescribed by: JULIO QUINN on 09/19/17 141 Prednisone 20 Mg Tab, 40 MG PO DAILY Prescribed by: MARLEN HARRY on 02/28/182150 Topiramate 200 Mg Tablet, 200 MG PO BID, (Reported) Tramadol HCl 50 Mg Tablet, 50 MG PO Q8H PRN for PAIN-MODERATE TO SEVERE Prescribed by: VENKAT BHATIA on 03/25/181908 Patient Home Medication List Home Medication List Reviewed: Yes Review of Systems Review of Systems Constitutional: see HPI Eyes: No Symptoms Reported Ears: No Symptoms Reported Nose: no symptoms reported Mouth: no symptoms reported Throat: no symptoms reported Respiratory: no symptoms reported Cardiovascular: no symptoms reported Musculoskeletal: no symptoms reported Skin: see HPI Neurological: No Symptoms Reported Past Gxbocjv-Frrbrr-Xucagl Hx Patient Social History Alcohol Use: Denies Use Recreational Drug Use: No Smoking Status: Never a Smoker 2nd Hand Smoke Exposure: No Recent Foreign Travel: No Contact w/Someone Who Travel: No Recent Infectious Disease Expo: No Recent Hopitalizations: No Immunizations Up To Date Tetanus Booster (TDap): More than 5yrs PED Vaccines UTD: Yes Date of Pneumonia Vaccine: Jun 14, 2011 Date of Influenza Vaccine: Mar 13, 2017 Seasonal Allergies Seasonal Allergies: No Past Medical History Surgeries: Yes Abdominal, Appendectomy, Bowel Surgery, Breast, Orthopedic Respiratory: Yes ("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") Asthma, Pneumonia Currently Using CPAP: No Currently Using BIPAP: No Cardiac: Yes (cath with "some kind of intervention") Neurological: Yes Seizure Disorder Reproductive Disorders: Yes (CHRONIC PID, CHRONIC PELVIC PAIN; CERVICAL DYSPLASIA-S/P CRYO OF CERVIX X 2) Female Reproductive Disorders: Pelvic Inflammatory Dis, Ovarian Cyst Sexually Transmitted Disease: No HIV/AIDS: No Genitourinary: Yes Kidney Stones Gastrointestinal: Yes (SEE SURGICAL HISTORY ) Hemorrhoids, Gall Bladder Disease Musculoskeletal: Yes (SEE SURGICAL HISTORY) Endocrine: Yes (hypoglycemia ) HEENT: Yes ("VOCAL CORD DYSFUNCTION" SELF REPORTED) Loss of Vision: Denies Hearing Impairment: Denies Cancer: Yes Breast, Cervical, Colon Did You Recieve Any Treatments: Yes What Type of Treatment Did You: Chemotherapy, Radiation, Surgical Intervention Psychosocial: Yes Pseudo Seizures Integumentary: Yes (tattoo of a surgical scar on the lower abdomen) Psoriasis Blood Disorders: No Family Medical History Patient reports no known family medical history. GI Disease Physical Exam Vital Signs Vital Signs - First Documented 08/03/18 18:15 Temp 98.2 Pulse 64 Resp 16 B/P (MAP) 127/67 (87) Pulse Ox 97 O2 Delivery Room Air Height, Weight, BMI Height: 5'10.00" Weight: 205lbs. 6.4oz. 92.563149hp; 29.3 BMI Method:Stated General Appearance: WD/WN, no apparent distress Eyes: bilateral eye normal inspection, bilateral eye PERRL, bilateral eye EOMI Ears: bilateral ear auricle normal, bilateral ear canal normal, bilateral ear TM normal Nose: normal inspection, active bleeding Mouth/Throat: normal mouth inspection, pharynx normal Neck: non-tender, full range of motion, other (to the lateral aspect of the neck on the left just posterior to the ear there is a nonmobile pea-sized firm nodule. Overlying skin is normal in appearance) Respiratory: no respiratory distress, no accessory muscle use Gastrointestinal: normal bowel sounds, non tender Neurologic/Psychiatric: alert, normal mood/affect, oriented x 3 Skin: normal color, warm/dry Progress/Results/Core Measures Results/Orders Vital Signs/I&O 08/03/18 18:15 Temp 98.2 Pulse 64 Resp 16 B/P (MAP) 127/67 (87) Pulse Ox 97 O2 Delivery Room Air Blood Pressure Mean: 87 Departure Impression Primary Impression: Nodule of neck Disposition: HOME, SELF-CARE Condition: Stable Departure-Patient Inst. Decision time for Depature: 18:27 Referrals: [facility] (PCP) Primary Care Physician [facility] (Family) Primary Care Physician ISMAEL MOHR BRETT D DO JENKINS, XAVIER M MD KIDO, TAKAAKI MD Patient Instructions: General (DC) Add. Discharge Instructions: 1. Call a surgeon of your choosing to make an appointment for follow-up next week. This Should be removed and sent for biopsy TRUDY GONZALES APRN Aug 03, 2018 18:28
[2018-08-03 18:34] VITALS: BP 127/67
--- NOTE | 2018-08-03 18:34 | NUR ---
SEE ROBISON NOTE FOR ASSESSMENT OF NODULE.
== END 2018-08-03 18:34 | disposition home or self-care (01) ==
LOC: EDUNIT# 18:00 → ER 18:05
DX: R22.1 Localized swelling, mass and lump, neck (principal); J45.909 Unspecified asthma, uncomplicated; G40.909 Epilepsy, unspecified, not intractable, without status epilepticus; Z85.3 Personal history of malignant neoplasm of breast; Z85.038 Personal history of other malignant neoplasm of large intestine; Z85.41 Personal history of malignant neoplasm of cervix uteri; Z92.21 Personal history of antineoplastic chemotherapy; Z87.19 Personal history of other diseases of the digestive system; Z87.442 Personal history of urinary calculi; Z87.448 Personal history of other diseases of urinary system; Z88.1 Allergy status to other antibiotic agents; Z91.040 Latex allergy status; Z79.52 Long term (current) use of systemic steroids; Z90.49 Acquired absence of other specified parts of digestive tract; Z98.890 Other specified postprocedural states; Z87.01 Personal history of pneumonia (recurrent)
CPT/HCPCS: 99281

== ENCOUNTER → 2018-09-04 | Outpatient (CLI) | payer MEDICAID ==
--- NOTE | 2018-09-04 15:58 | Diagnostic Imaging Report ---
INDICATION: Left neck lymphadenopathy. FINDINGS: Sonographic interrogation of the left neck was performed at an area of palpable abnormality. There is an ovoid hypoechoic nodule measuring 8 mm x 3 mm x 10 mm. This is most consistent with a small lymph node. This is normal in size. No other abnormalities are identified. IMPRESSION: Normal-sized lymph node in the left neck at the area of palpable abnormality. Dictated by: Dictated on workstation # [id number]
== END ==
LOC: RAD 15:16
PROVIDERS: ATTEND Nurse Practitioner Family
DX: R59.0 Localized enlarged lymph nodes (principal)
CPT/HCPCS: 76536

== ENCOUNTER 2019-08-09 23:02 | Emergency (ER) | payer MEDICAID ==
[~2019-08-09] VITALS: Ht 180 cm; Wt 113.3 kg
[~2019-08-09 23:02] MED LIST changes: -TRAM50TA2 PO; +TRM50T PO
[2019-08-09] MEDS ORDERED: CIPROFLOXACIN 500 MG (CIPRO) TABLET PO ONE (23:30)
[2019-08-09] MEDS ORDERED: metroNIDAZOLE 500 MG (FLAGYL) TAB PO ONE (23:30)
[2019-08-09] MEDS ORDERED: ACHD5005 PO (23:36)
[2019-08-09] MEDS ORDERED: METR500T PO (23:36)
[2019-08-09] MEDS ORDERED: CIPR500T4 PO (23:36)
--- NOTE | 2019-08-09 23:36 | ED GI ---
General Chief Complaint: Rect Problems Stated Complaint: TAILBONE PAIN Source of Information: Patient Exam Limitations: No Limitations History of Present Illness Date Seen by Provider: Aug 09, 2019 Time Seen by Provider: 23:15 Initial Comments This 34-year-old woman presents to the emergency room with complaints of perianal pain for the past couple of days. Pain escalated while on a long drive home today. She cannot identify any particular cause. She denies any bleeding. It hurts with contact including wiping. She reports a similar pain once in the past when she had diverticulitis. She denies any abdominal pain, constipation, diarrhea, or vomiting. She is afebrile. Allergies and Home Medications Allergies Coded Allergies: cefaclor (Verified Allergy, Unknown, 12/19/13) latex (Verified Allergy, Unknown, 12/19/13) peanut (Verified Allergy, Unknown, 12/19/13) strawberry (Verified Allergy, Unknown, 10/28/16) venom-honey bee (Verified Allergy, Unknown, 12/19/13) Home Medications Ciprofloxacin HCl 500 Mg Tablet, 500 MG PO BID Prescribed by: VENKAT BHATIA on 03/25/181908 Ciprofloxacin HCl 500 Mg Tablet, 500 MG PO BID Prescribed by: RAMON CHURCH on 08/09/192335 Hydrocodone Bit/Acetaminophen 1 Tab Tab, 1 EACH PO Q4-6HR PRN for PAIN-MODERATE Prescribed by: RAMON CHURCH on 08/09/192335 Levetiracetam 500 Mg Tablet, 1,500 MG PO BID, (Reported) TAKES 3 (500 MG) TABLETS Levofloxacin 500 Mg Tablet, 500 MG PO DAILY Prescribed by: JULIO QUINN on 09/19/17 141 Metronidazole 500 Mg Tablet, 500 MG PO Q6H Prescribed by: VENKAT BHATIA on 03/25/181908 Metronidazole 500 Mg Tablet, 500 MG PO TID Prescribed by: RAMON CHURCH on 08/09/192335 Prednisone 50 Mg Tab, 50 MG PO DAILY Prescribed by: JULIO QUINN on 09/19/17 141 Prednisone 20 Mg Tab, 40 MG PO DAILY Prescribed by: MARLEN HARRY on 02/28/182150 Topiramate 200 Mg Tablet, 200 MG PO BID, (Reported) Tramadol HCl 50 Mg Tablet, 50 MG PO Q8H PRN for PAIN-MODERATE TO SEVERE Prescribed by: VENKAT BHATIA on 03/25/18 2958 Patient Home Medication List Home Medication List Reviewed: Yes Review of Systems Review of Systems Constitutional: no symptoms reported EENTM: No Symptoms Reported Respiratory: No Symptoms Reported Cardiovascular: No Symptoms Reported Gastrointestinal: See HPI Genitourinary: No Symptoms Reported Musculoskeletal: no symptoms reported Skin: see HPI Psychiatric/Neurological: No Symptoms Reported Endocrine: No Symptoms Reported Hematologic/Lymphatic: No Symptoms Reported Past Tqiarkf-Ocughq-Upddcu Hx Past Med/Social Hx: Reviewed Nursing Past Med/Soc Hx Patient Social History 2nd Hand Smoke Exposure: No Recent Foreign Travel: No Contact w/Someone Who Travel: No Recent Hopitalizations: No Immunizations Up To Date Tetanus Booster (TDap): More than 5yrs PED Vaccines UTD: Yes Date of Pneumonia Vaccine: Jun 14, 2011 Date of Influenza Vaccine: Mar 13, 2017 Seasonal Allergies Seasonal Allergies: No Past Medical History Surgeries: Yes Abdominal, Appendectomy, Bowel Surgery, Breast, Orthopedic Respiratory: Yes ("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") Asthma, Pneumonia Currently Using CPAP: No Currently Using BIPAP: No Cardiac: Yes (cath with "some kind of intervention") Neurological: Yes Seizure Disorder Reproductive Disorders: Yes (CHRONIC PID, CHRONIC PELVIC PAIN; CERVICAL DYSPLASIA-S/P CRYO OF CERVIX X 2) Female Reproductive Disorders: Pelvic Inflammatory Dis, Ovarian Cyst Sexually Transmitted Disease: No HIV/AIDS: No Genitourinary: Yes Kidney Stones Gastrointestinal: Yes (SEE SURGICAL HISTORY ) Hemorrhoids, Gall Bladder Disease Musculoskeletal: Yes (SEE SURGICAL HISTORY) Endocrine: Yes (hypoglycemia ) HEENT: Yes ("VOCAL CORD DYSFUNCTION" SELF REPORTED) Loss of Vision: Denies Hearing Impairment: Denies Cancer: Yes Breast, Cervical, Colon Did You Recieve Any Treatments: Yes What Type of Treatment Did You: Chemotherapy, Radiation, Surgical Intervention Psychosocial: Yes Pseudo Seizures Integumentary: Yes (tattoo of a surgical scar on the lower abdomen) Psoriasis Blood Disorders: No Family Medical History Reviewed Nursing Family Hx Patient reports no known family medical history. GI Disease Physical Exam Vital Signs Vital Signs - First Documented 08/09/19 23:15 Temp 37.1 Pulse 112 Resp 20 B/P (MAP) 125/93 (104) Pulse Ox 96 Capillary Refill : Height/Weight/BMI Height: 5'10.00" Weight: 205lbs. 6.4oz. 92.070015si; 29.3 BMI Method:Stated General Appearance: WD/WN, no apparent distress HEENT: normal ENT inspection Respiratory: lungs clear, normal breath sounds, no respiratory distress Cardiovascular: regular rate, rhythm, no edema, no murmur Gastrointestinal: normal bowel sounds, non tender, soft Rectal: normal rectal tone, heme negative stool; No hemorrhoids; tenderness (there is tenderness at the right superior aspect of the anus. There is very subtle induration with no overt abscess, fluctuance, inflammation, or drainage. 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, no motor/sensory deficits, alert, normal mood/affect, oriented x 3 Skin: normal color, warm/dry Progress/Results/Core Measures Results/Orders My Orders Orders - RAMON REYES MD Ciprofloxacin Tablet (Cipro Tablet) (08/09/19 23:30) Metronidazole Tablet (Flagyl Tablet) (08/09/19 23:30) Fecal Occult Bedside (08/09/19 23:53) Fecal Occult Bedside (08/10/19 03:44) Medications Given in ED Current Medications Medications Dose Ordered Sig/Sourav Route Start Time Stop Time Status Last Admin Dose Admin Ciprofloxacin 500 mg ONCE ONCE PO 08/09/19 23:30 08/09/19 23:32 DC 08/09/19 23:45 500 MG Metronidazole 500 mg ONCE ONCE PO 08/09/19 23:30 08/09/19 23:32 DC 08/09/19 23:45 500 MG Vital Signs/I&O 08/09/19 08/09/19 23:15 23:45 Temp 37.1 37.4 Pulse 112 114 Resp 20 20 B/P (MAP) 125/93 (104) 118/86 (104) Pulse Ox 96 94 Progress Progress Note : Progress Note Exam was unremarkable except a small area of about 2 cm of tenderness with some very subtle induration. No overt abscess was detected. Patient may have a tiny abscess developing causing her symptoms. We have started her on Cipro and Flagyl. I gave her Dr. MASON's contact information to call if symptoms worsen. Departure Impression Primary Impression: Perianal pain Disposition: HOME, SELF-CARE Condition: Improved Departure-Patient Inst. Decision time for Depature: 23:32 Referrals: BRIANNE CRAIN MD (PCP) Primary Care Physician [facility] (Family) Primary Care Physician DONNELL MASON MD Patient Instructions: Anal Abscess and Fistula Add. Discharge Instructions: You may take ibuprofen up to 600 mg every 6 hours as needed for primary pain control. Add Tylenol (acetaminophen) up to 1000 mg every 6 hours as needed for additional pain control. You may substitute hydrocodone for the Tylenol if pain is severe. Contact Dr. Mason or the surgeon of your choice if symptoms become more severe or return to the emergency room. Also return to the emergency room if you develop new symptoms such as fevers. Complete the antibiotics as prescribed. All discharge instructions reviewed with patient and/or family. Voiced understanding. Scripts Hydrocodone Bit/Acetaminophen (Hydrocodone/Acetaminophen 5/325mg Tablet) 1 Tab Tab 1 EACH PO Q4-6HR PRN for PAIN-MODERATE MDD 10, #5 TAB Prov: RAMON REYES MD 08/09/19 Metronidazole (Flagyl) 500 Mg Tablet 500 MG PO TID, #20 TAB Prov: RAMON REYES MD 08/09/19 Ciprofloxacin HCl (Ciprofloxacin HCl) 500 Mg Tablet 500 MG PO BID, #14 TAB Prov: RAMON REYES MD 08/09/19 Copy Copies To 1: DONNELL MASON MD Copies To 2: BRIANNE CRAIN MD, JOSHUA T MD Aug 09, 2019 23:36
[2019-08-09 23:45] VITALS: BP 118/86
== END 2019-08-09 23:45 | disposition home or self-care (01) ==
LOC: EDUNIT# 23:02 → ER 23:05
DX: K62.89 Other specified diseases of anus and rectum (principal); J45.909 Unspecified asthma, uncomplicated; G40.909 Epilepsy, unspecified, not intractable, without status epilepticus; Z88.1 Allergy status to other antibiotic agents; Z91.040 Latex allergy status; Z88.8 Allergy status to other drugs, medicaments and biological substances; Z79.52 Long term (current) use of systemic steroids; Z85.3 Personal history of malignant neoplasm of breast; Z85.038 Personal history of other malignant neoplasm of large intestine; Z85.41 Personal history of malignant neoplasm of cervix uteri
CPT/HCPCS: 82274

== ENCOUNTER 2020-06-16 17:47 | Emergency (ER) | payer MEDICAID ==
[~2020-06-16] VITALS: Ht 178 cm; Wt 105.2 kg
[~2020-06-16 17:47] MED LIST changes: +CIPR500T4 PO
--- NOTE | 2020-06-16 18:14 | ED General ---
General Chief Complaint: Respiratory Problems Stated Complaint: CP/SOB/COVID EXPOSURE Source of Information: Patient Exam Limitations: No Limitations History of Present Illness Date Seen by Provider: Jun 16, 2020 Time Seen by Provider: 18:13 Initial Comments To ER with reports of palpitations, shortness of breath after Covid exposure. No fevers. Timing/Duration: 1-2 Days Severity: Moderate Associated Systoms: Cough Allergies and Home Medications Allergies Coded Allergies: cefaclor (Verified Allergy, Unknown, 12/19/13) latex (Verified Allergy, Unknown, 12/19/13) peanut (Verified Allergy, Unknown, 12/19/13) strawberry (Verified Allergy, Unknown, 10/28/16) venom-honey bee (Verified Allergy, Unknown, 12/19/13) Home Medications Ciprofloxacin HCl 500 Mg Tablet, 500 MG PO BID Prescribed by: VENKAT BHATIA on 03/25/181908 Ciprofloxacin HCl 500 Mg Tablet, 500 MG PO BID Prescribed by: RAMON CHURCH on 08/09/192335 Hydrocodone Bit/Acetaminophen 1 Tab Tab, 1 EACH PO Q4-6HR PRN for PAIN-MODERATE Prescribed by: RAMON CHURCH on 08/09/192335 Levetiracetam 500 Mg Tablet, 1,500 MG PO BID, (Reported) TAKES 3 (500 MG) TABLETS Levofloxacin 500 Mg Tablet, 500 MG PO DAILY Prescribed by: JULIO QUINN on 09/19/17 141 Metronidazole 500 Mg Tablet, 500 MG PO Q6H Prescribed by: VENKAT BHATIA on 03/25/181908 Metronidazole 500 Mg Tablet, 500 MG PO TID Prescribed by: RAMON CHURCH on 08/09/192335 Prednisone 50 Mg Tab, 50 MG PO DAILY Prescribed by: JULIO QUINN on 09/19/17 141 Prednisone 20 Mg Tab, 40 MG PO DAILY Prescribed by: MARLEN HARRY on 02/28/182150 Topiramate 200 Mg Tablet, 200 MG PO BID, (Reported) Tramadol HCl 50 Mg Tablet, 50 MG PO Q8H PRN for PAIN-MODERATE TO SEVERE Prescribed by: VENKAT BHATIA on 03/25/181908 Patient Home Medication List Home Medication List Reviewed: Yes Review of Systems Review of Systems Constitutional: see HPI EENTM: see HPI Respiratory: see HPI, cough, short of breath Cardiovascular: no symptoms reported Genitourinary: no symptoms reported Musculoskeletal: no symptoms reported Skin: no symptoms reported Psychiatric/Neurological: No Symptoms Reported Past Pxsygao-Gkykdc-Kyuncr Hx Patient Social History 2nd Hand Smoke Exposure: No Recent Foreign Travel: No Contact w/Someone Who Travel: No Recent Hopitalizations: No Immunizations Up To Date Tetanus Booster (TDap): More than 5yrs PED Vaccines UTD: Yes Date of Pneumonia Vaccine: Jun 14, 2011 Date of Influenza Vaccine: Mar 13, 2019 Seasonal Allergies Seasonal Allergies: No Past Medical History Surgeries: Yes Abdominal, Appendectomy, Bowel Surgery, Breast, Orthopedic Respiratory: Yes ("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") Asthma, Pneumonia Currently Using CPAP: No Currently Using BIPAP: No Cardiac: Yes (cath with "some kind of intervention") Neurological: Yes Seizure Disorder Reproductive Disorders: Yes (CHRONIC PID, CHRONIC PELVIC PAIN; CERVICAL DYSPLASIA-S/P CRYO OF CERVIX X 2) Female Reproductive Disorders: Pelvic Inflammatory Dis, Ovarian Cyst Sexually Transmitted Disease: No HIV/AIDS: No Genitourinary: Yes Kidney Stones Gastrointestinal: Yes (SEE SURGICAL HISTORY ) Hemorrhoids, Gall Bladder Disease Musculoskeletal: Yes (SEE SURGICAL HISTORY) Endocrine: Yes (hypoglycemia ) HEENT: Yes ("VOCAL CORD DYSFUNCTION" SELF REPORTED) Loss of Vision: Denies Hearing Impairment: Denies Cancer: Yes Breast, Cervical, Colon Did You Recieve Any Treatments: Yes What Type of Treatment Did You: Chemotherapy, Radiation, Surgical Intervention Psychosocial: Yes Pseudo Seizures Integumentary: Yes (tattoo of a surgical scar on the lower abdomen) Psoriasis Blood Disorders: No Family Medical History Patient reports no known family medical history. GI Disease Physical Exam Vital Signs Vital Signs - First Documented 06/16/20 18:13 Temp 36.8 Pulse 87 Resp 18 B/P (MAP) 133/106 (115) Pulse Ox 100 Capillary Refill : Height, Weight, BMI Height: 5'10.00" Weight: 205lbs. 6.4oz. 92.881236hz; 34.00 BMI Method:Stated General Appearance: No Apparent Distress, WD/WN, Other (Alert and oriented no distress no accessory muscle use. Her oxygen saturation is 100% room air her heart rate is in the 80s.) Eyes: Bilateral Eye Normal Inspection, Bilateral Eye PERRL, Bilateral Eye EOMI Neck: Full Range of Motion, Normal Inspection Respiratory: No Accessory Muscle Use, No Respiratory Distress Cardiovascular: Regular Rate, Rhythm, Normal Peripheral Pulses Gastrointestinal: Normal Bowel Sounds, Non Tender, Soft Extremity: Normal Capillary Refill, Normal Inspection Neurologic/Psychiatric: Alert, Oriented x3 Skin: Normal Color, Warm/Dry Progress/Results/Core Measures Suspected Sepsis SIRS Temperature: Pulse: Respiratory Rate: Blood Pressure / Mean: Results/Orders Lab Results Laboratory Tests Test 06/16/20 18:22 Range/Units Coronavirus 2019 (MILAGROS) Negative Negative My Orders Orders - TRUDY GONZALES APRN Chest 1 View, Ap/Pa Only (06/16/20 18:11) Covid 19 Inhouse Test (06/16/20 18:11) Vital Signs/I&O 06/16/20 18:13 Temp 36.8 Pulse 87 Resp 18 B/P (MAP) 133/106 (115) Pulse Ox 100 Capillary Refill : Departure Impression Primary Impression: Close exposure to COVID-19 virus Disposition: 01 HOME, SELF-CARE Condition: Stable Departure-Patient Inst. Decision time for Depature: 18:14 Referrals: BRIANNE CRAIN MD (PCP) Primary Care Physician [facility] (Family) Primary Care Physician Patient Instructions: Coronavirus Disease 2019 (COVID-19) Overview TRUDY GONZALES APRN Jun 16, 2020 18:14
--- NOTE | 2020-06-16 18:35 | Diagnostic Imaging Report ---
INDICATION: Chest pain, shortness of breath, COVID patient. Compared 09/17/2017. FINDINGS: No focal infiltrate, effusion, pneumothorax or failure pattern. No acute appearing abnormality. IMPRESSION: Unremarkable frontal chest. Dictated by: Dictated on workstation # [id number]
[2020-06-16 19:00] VITALS: BP 135/88
== END 2020-06-16 19:04 | disposition home or self-care (01) ==
LOC: EDUNIT# 17:47 → ER 17:48
DX: R06.02 Shortness of breath (principal); R00.2 Palpitations; R05 Cough; J45.909 Unspecified asthma, uncomplicated; G40.909 Epilepsy, unspecified, not intractable, without status epilepticus; Z88.1 Allergy status to other antibiotic agents; Z91.040 Latex allergy status; Z85.3 Personal history of malignant neoplasm of breast; Z85.038 Personal history of other malignant neoplasm of large intestine; Z85.41 Personal history of malignant neoplasm of cervix uteri; Z79.52 Long term (current) use of systemic steroids; Z20.822 Contact with and (suspected) exposure to COVID-19
CPT/HCPCS: 71045; 99282; U0002; 87635